=== PATIENT | male | born 1930 | race Caucasian/White ===

== ENCOUNTER 2017-01-04 17:45 | Inpatient (IN) | payer MEDICARE ==
[~2017-01-04] VITALS: Ht 180.3 cm; Wt 72.7 kg
--- NOTE | 2017-01-04 18:22 | PHYS DOC ---
General Chief Complaint: CHEST PAIN Stated Complaint: CHEST PAIN Time Seen by MD: 18:10 Source: patient, family Problems: History of Present Illness Initial Comments Patient here with for chest pain. 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 Patient barely walk in the house about an hour prior to arrival to emergency department complaining of left-sided chest pain. He points to the left inframammary area and says it was sharp pain. He says is totally gone now. It was not associated with nausea vomiting diaphoresis or shortness of breath. He's had no fever or chills today. There is no runny nose or sore throat. says he does have a cough productive of thick clear mucus. There is no other chest pain or shortness of breath except as described. He's had no nausea or vomiting today. There is no abdominal pain. There is no change amount or bladder habits. says he occasionally has some swelling of the lower extremity is, is not been taking Lasix for the last several weeks. She says occasionally has tingling in the digits, but this again is been going on for any number of weeks. There is no other acute focal extremity or neurologic complaints. 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 Other than present for care tonight has been nothing done for this home and no fractures noted increase or decrease any symptoms the patient might have. Patient's past medical history according the is remarkable for COPD, CHF, prostate cancer. He receives chemotherapy infusions once every 3 months. He 's not had a prostate surgery or radiation. He does take an aspirin daily and did so this morning. He is a nonsmoker and nonuser of ethanol. He usually gets about the house by himself without a cane or a walker. Allergies: Coded Allergies: Sulfa (Sulfonamide Antibiotics) (Unverified Allergy, Intermediate, rash, ) Past Medical History Medical History: cancer, congestive heart failure, COPD Social History Smoker: non-smoker Alcohol: none Review of Systems All Other Systems: Reviewed and Negative Physical Exam General Appearance: WD/WN, no apparent distress Ear, Nose, Throat: normal ENT inspection, normal pharynx Neck: full range of motion, supple, normal inspection Respiratory: lungs clear, normal breath sounds, no respiratory distress, other Cardiovascular: regular rate, rhythm, no edema Gastrointestinal: non tender, soft, no organomegaly Back: no CVA tenderness, no vertebral tenderness Extremities: non-tender, normal inspection, no pedal edema Neurologic/Psychiatric: no motor/sensory deficits, alert, normal mood/affect Skin: normal color Lymphatic: no adenopathy Comments Generally this well-developed well-nourished white male in no acute distress. Vitals are as noted. Pertinent findings on physical exam shows ears and throat to be clear. Neck is supple without adenopathy or JVD. There's no meningeal signs. Chest is clear to auscultation bilaterally. Patient is equivocally tender over the left inframammary area of the anterior chest wall. There is no signs of trauma. He's not sure if this increases her reproduces his earlier pain. There is no change in pain with motion of the left upper versus resistance. Cardiac vascular exam shows regular rate and rhythm without murmur. The abdomen is soft and nontender without mass or megaly. There is no peritoneal findings. Back shows no CVA tenderness. Extremities show no rashes cyanosis or edema. There is no redness swelling cords or signs of DVT noted. Neurologic exam shows the patient awake alert oriented to person and place but not to time. says this is about how he's been the last several weeks. There are no gross motor sensory deficits appreciated. He is initially not ambulated in the ER. Remainder of physical exam is clinically unremarkable. Orders, Labs, Meds Old charts note a prior ER visit for hematoma. He had an echocardiogram done in May of last year which showed a normal study with ejection fraction of 70% . EKG shows sinus 70. Normal axis. No acute ST or T-wave changes. Labs today are clinically unremarkable with the exception of mildly elevated d- dimer and the BNP of a proximal 750. Chest x-ray shows no acute changes per the emergency physician. CT angiogram of the chest shows no acute evidence of pulmonary emboli per radiology. 0 Patient resting comfortably in the ED. He remains pain-free. I discussed with the patient and his the uncertain cause of this chest discomfort. He has no previous history of coronary disease, but he does have a history of CHF and I think he is fairly high risk. In addition, his dementia made given him small for perceptions about what was actually going on. I suggested the patient and his the safest course of action would be admission to the hospital overnight for observation. We can do serial enzymes to have cardiology see him in the morning. After discussion, they're agreeable to same. I discussed the case with Dr. Guy who graciously agrees to accept the patient to the hospital. I will complete initial holding orders including daily aspirin, or serial enzymes and EKGs, and cardiology consult. We'll also get him started on some Lasix for his mild failure. Patient and his continue to voice understanding and agreement with the admission plan. He is resting at this time awaiting transfer to the floor and inpatient care. MIGUELITO BURT MD Jan 04, 2017 18:22
[2017-01-04 18:41] LABS: BASO % 0 % (0-3); EOS # 0.5 x10^3/uL (0.0-0.7); EOS % 7 % (0-3); HEMOGLOBIN 12.2 g/dL (13.0-17.5); LYMPH # 1.9 x10^3/uL (1.0-4.8); LYMPH % 27 % (24-48); MEAN CORPUSCULAR HEMOGLOBIN 29 pg (25-35); MEAN CORPUSCULAR HGB CONC 33 g/dL (31-37); MEAN CORPUSCULAR VOLUME 87 fL (79-100); MONO # 0.6 x10^3/uL (0.0-1.1); MONO % 8 % (0-9); NEUT % 58 % (31-73); PLATELET COUNT 320 x10^3/uL (140-400); RED BLOOD COUNT 4.26 x10^6/uL (4.30-5.70); RED CELL DISTRIBUTION WIDTH 14.2 % (11.5-14.5)
[2017-01-04] MEDS ORDERED: METO25TA4 PO (18:41)
[2017-01-04] MEDS ORDERED: AMLO5TAB4 PO (18:41)
[2017-01-04] MEDS ORDERED: ASPI81TA50 PO (18:42)
[2017-01-04] MEDS ORDERED: LOVA40TA2 PO (18:42)
[2017-01-04] MEDS ORDERED: LEVO50TA5 PO (18:43)
[2017-01-04 18:57] LABS: ALBUMIN 3.8 g/dL (3.4-5.0); ALBUMIN/GLOBULIN RATIO 1.1 (1.0-1.7); CALCIUM 9.2 mg/dL (8.5-10.1); CREATININE 0.9 mg/dL (0.7-1.3); GFR 80.2; POTASSIUM 3.7 mmol/L (3.5-5.1); TOTAL BILIRUBIN 0.3 mg/dL (0.2-1.0); TOTAL PROTEIN 7.4 g/dL (6.4-8.2)
[2017-01-04 19:26] LABS: BILIRUBIN,URINE NEG (NEG); CLARITY,URINE CLEAR; COLOR,URINE YELLOW; GLUCOSE,URINE NEG (NEG); NITRITE,URINE NEG (NEG); UROBILINOGEN,URINE 0.2 mg/dL (0.2 mg/dL)
[2017-01-04 19:27] LABS: BACTERIA,URINE 0 /HPF (0-FEW); RBC,URINE OCC /HPF (0-2); WBC,URINE OCC /HPF (0-4)
[2017-01-04] MEDS ORDERED: IOHEXOL 300 MG/ML 75 ML VIAL. IV ONE (20:15)
--- NOTE | 2017-01-04 20:59 | RAD ---
PROCEDURE CT angiogram of the chest with intravenous contrast. HISTORY Chest pain. Elevated D-dimer. Cough and congestion. TECHNIQUE Computed tomographic images of the chest were obtained following the administration 75 cc Omnipaque 300 intravenous contrast. Three-dimensional maximum intensity projection images were obtained. One or more of the following individualized dose reduction techniques were utilized for this examination: 1. Automated exposure control; 2. Adjustment of the mA and/or kV according to patient size; 3. Use of iterative reconstruction technique. COMPARISON 10/25/2010 FINDINGS There is no evidence of pulmonary embolism. The heart is normal in size. There is coronary artery atherosclerosis and calcification of the aortic valve. There are prominent mediastinal and hilar lymph nodes, nonspecific and possibly physiologic or reactive in etiology. There is no pneumothorax or plural effusion. There is emphysema. There is bilateral posterior dependent and basilar atelectasis. There is a 1.3 cm pleural-based nodular opacity at the right lung base. This is likely due to subsegmental atelectasis. There is a small hiatal hernia. There are small left renal parapelvic cysts. There is aortic and aortic branch vessel atherosclerotic plaque. There degenerative changes throughout the spine. No suspicious osseous lesion is seen. IMPRESSION 1. No evidence of pulmonary embolism. 2. Emphysema with bilateral posterior dependent and basilar atelectasis. 3. 1.3 cm pleural-based opacity at the right lung base, the appearance of which favors subsegmental atelectasis. The minimal interval change in this finding compared to the remote study dated 10/25/2010 favors benignity. 4. Small hiatal hernia. 5. Aorta, coronary artery and aortic branch vessel atherosclerosis. 6. Prominent mediastinal and hilar lymph nodes, stable compared to the prior study and likely physiologic in the etiology. Electronically signed by: Gely Thomason (Jan 04, 2017 20:57:38)
[2017-01-04] MEDS ORDERED: ZOLPIDEM 5 MG TABLET. PO PRN (22:30)
[2017-01-04 22:32] VITALS: BP 180/65
[2017-01-04] MEDS ORDERED: FUROSEMIDE 40 MG/4 ML VIAL IVP ONE (22:45)
[2017-01-04 23:17] VITALS: BP 139/66
--- NOTE | 2017-01-05 00:22 | EKG ---
[address] [address] Test Date: 2017-01-04 Test Time: 17:53:48 Pat Name: YARA JOHANSEN Department: Room: 109 A Gender: M Transitional Nurse: DIO : 1930 Requested By: MIGUELITO BURT Order Number: [id number] Reading MD: Peng Bueno Measurements Intervals [place] Rate: 72 P: 129 WV: 198 QRS: 114 QRSD: 86 T: 161 QT: 422 QTc: 469 Interpretive Statements SINUS RHYTHM ABNORMAL RIGHT AXIS DEVIATION CONSISTENT WITH HIGH LATERAL INFARCT Electronically Signed On 01-09-2017 15:06:59 CDT by Peng Bueno
[2017-01-05] MEDS ORDERED: FURO20TA3 PO (00:33)
--- NOTE | 2017-01-05 02:33 | EKG ---
[address] [address] Test Date: 2017-01-05 Test Time: 01:33:45 Pat Name: YARA JOHANSEN Department: Room: 109 A Gender: M Optoelectronic Technician: : 1930 Requested By: MIGUELITO BURT Order Number: [id number] Reading MD: Peng Bueno Measurements Intervals [place] Rate: 76 P: 64 VA: 198 QRS: 65 QRSD: 84 T: 36 QT: 426 QTc: 484 Interpretive Statements SINUS RHYTHM PROLONGED QT Electronically Signed On 01-09-2017 15:27:17 CDT by Peng Bueno
[2017-01-05 04:10] VITALS: BP 162/73
[2017-01-05] MEDS ORDERED: LEVOTHYROXINE 50 MCG TABLET PO SCH ×2 (06:15→09:00)
[2017-01-05 06:24] LABS: POTASSIUM 3.6 mmol/L (3.5-5.1)
[2017-01-05 06:36] LABS: BASO # 0.1 x10^3/uL (0.0-0.2); BASO % 1 % (0-3); EOS # 0.4 x10^3/uL (0.0-0.7); EOS % 6 % (0-3); HEMATOCRIT 35.1 % (39.0-53.0); HEMOGLOBIN 11.9 g/dL (13.0-17.5); LYMPH # 1.4 x10^3/uL (1.0-4.8); LYMPH % 22 % (24-48); MEAN CORPUSCULAR HEMOGLOBIN 29 pg (25-35); MEAN CORPUSCULAR HGB CONC 34 g/dL (31-37); MEAN CORPUSCULAR VOLUME 86 fL (79-100); MONO # 0.5 x10^3/uL (0.0-1.1); MONO % 7 % (0-9); NEUT # 4.2 x10^3uL (1.8-7.7); NEUT % 64 % (31-73); PLATELET COUNT 326 x10^3/uL (140-400); RED BLOOD COUNT 4.11 x10^6/uL (4.30-5.70); RED CELL DISTRIBUTION WIDTH 13.9 % (11.5-14.5); WHITE BLOOD COUNT 6.5 x10^3/uL (4.0-11.0)
[2017-01-05 07:25] VITALS: BP 136/86
[2017-01-05] MEDS ORDERED: ASPIRIN 325 MG TABLET PO SCH (08:00)
--- NOTE | 2017-01-05 08:10 | RAD ---
Portable chest, 01/04/2017: History: Chest pain Comparison is made to a study from 11/08/2008. The heart size is normal. There is calcific plaquing of the aorta. No pulmonary infiltrates are seen. There is no evidence of pleural fluid. Moderate arthritic changes are present at both shoulders. IMPRESSION: No acute cardiopulmonary abnormality is detected.
[2017-01-05] MEDS ORDERED: FUROSEMIDE 40 MG/4 ML VIAL IVP SCH (09:00)
[2017-01-05] MEDS ORDERED: amLODIPine BESYLATE 5 MG TABLET PO SCH (09:00)
[2017-01-05] MEDS ORDERED: METOPROLOL TART IMMED RELEASE 25 MG TABLET PO SCH (09:00)
[2017-01-05] MEDS ORDERED: ASPIRIN ENTERIC COATED 81 MG TABLET.DR. PO SCH (09:00)
[2017-01-05 09:22] VITALS: BP_SYST 114; BP_SYST 128; BP_DIAS 52; BP_DIAS 56
[2017-01-05 10:11] VITALS: BP 134/67
[2017-01-05] MEDS ORDERED: ENOXAPARIN 40 MG/0.4 ML DISP.SYRIN. SQ SCH ×2 (11:00→21:00)
--- NOTE | 2017-01-05 13:03 | CARD ---
APPROVED REPORT EXAM: Two-dimensional and M-mode echocardiogram with Doppler and color Doppler. Other Information Quality : Good INDICATION Chest Pain 2D DIMENSIONS RVDd2.6 (2.9-3.5cm)Left Atrium(2D)4.5 (1.6-4.0cm) IVSd1.0 (0.7-1.1cm)Aortic Root(2D)2.8 (2.0-3.7cm) LVDd4.4 (3.9-5.9cm)LVOT Diameter2.1 (1.8-2.4cm) PWd1.1 (0.7-1.1cm)LVDs2.2 (2.5-4.0cm) FS (%) 30.0 %SV72.9 ml LVEF(%)60.0 (>50%) Aortic Valve AoV Peak Oliver.131.4cm/sAoV VTI23.4cm AO Peak GR.6.9mmHgLVOT Peak Oliver.144.9cm/s LVOT VTI 29.15cmAO Mean GR.4mmHg SUJEY (VMAX)3.02re9TJH (VTI)4.27cm2 Mitral Valve MV E Kakvrthi50.4cm/sMV DECEL [id number] MV A Ftbrqifb213.7cm/sE/A Ratio0.6 Tricuspid Valve TR P. Giuqxgbp454jv/sRAP GLHLJYHN7ziCm TR Peak Gr.68elCxZNNI56kvIh LEFT VENTRICLE The left ventricle is normal size. The echo findings are consistent with left ventricular outflow obs truction. The left ventricular systolic function is normal and the ejection fraction is within normal range. The Ejection Fraction is 60-65%. There is normal LV segmental wall motion. Transmitral Dopple r flow pattern is Grade I-abnormal relaxation pattern. RIGHT VENTRICLE The right ventricle is normal size. The right ventricular systolic function is normal. ATRIA The left atrium is mildly dilated. The right atrium size is normal. The interatrial septum is intact with no evidence for an atrial septal defect or patent foramen ovale as noted on 2-D or Doppler imagi ng. AORTIC VALVE The aortic valve is calcified but opens well. Doppler and Color Flow revealed trace aortic regurgitat ion. There is no significant aortic valvular stenosis. There is basal septal hypertrophy with an incr eased LVOT gradient of 3.45 m/s with valsalva consistent with idiopathic hypertrophic subaortic steno sis. MITRAL VALVE The mitral valve is calcified but opens well. There is no evidence of mitral valve prolapse. There is no mitral valve stenosis. Doppler and Color-flow revealed trace to mild mitral regurgitation. TRICUSPID VALVE The tricuspid valve is normal in structure and function. Doppler and Color Flow revealed trace tricus pid regurgitation. The PA pressure was estimated at 31 mmHg. There is no tricuspid valve stenosis. PULMONIC VALVE The pulmonary valve is normal in structure and function. Doppler and Color Flow revealed trace pulmon ic valvular regurgitation. There is no pulmonic valvular stenosis. GREAT VESSELS The aortic root is normal in size. The ascending aorta is not well seen. The IVC is normal in size an d collapses >50% with inspiration. PERICARDIAL EFFUSION There is no evidence of significant pericardial effusion. Critical Notification Critical Value: No <Conclusion> The left ventricle is normal size. The left ventricular systolic function is normal and the ejection fraction is within normal range. The Ejection Fraction is 60-65%. The echo findings are consistent with left ventricular outflow obstruction. Doppler and Color Flow revealed trace aortic regurgitation. There is no significant aortic valvular stenosis. There is basal septal hypertrophy with an increased LVOT gradient of 3.45 m/s with valsalva consistent with idiopathic hypertrophic subaortic stenosis. Doppler and Color-flow revealed trace to mild mitral regurgitation. Doppler and Color Flow revealed trace tricuspid regurgitation. The PA pressure was estimated at 31 mmHg.
--- NOTE | 2017-01-05 17:03 | PDOC2 ---
CARDIAC CONSULT DATE OF CONSULT Date Of Consult DATE: 01/05/17 TIME: 16:56 REASON FOR CONSULT Reason for Consult Chest pain REFERRING PHYSICIAN Referring Physician Dr. Guy SOURCE Source: Patient HPI History of Present Illness The patient is an 86-year-old male with a history of COPD and probable mild heart failure. He was admitted through the emergency room for episodes of chest pain as noted above and shortness of breath. His EKG shows a sinus rhythm with no acute ischemic changes. His troponins have been within normal limits 2. An echocardiogram last year showed normal LV systolic function. Chest x-ray shows no acute infiltrates. A CT chest scan shows no pulmonary emboli but does show diffuse emphysema. The patient is feeling better today. He denies any chest pain. He wishes to go home. PAST MEDICAL HISTORY Cardiovascular: CHF, HTN Pulmonary: COPD Heme/Onc: Cancer PAST SURGICAL HISTORY Past Surgical History: No pertinent history FAMILY HISTORY Family History: Hypertension SOCIAL HISTORY Smoke: No ALCOHOL: none CURRENT MEDICATIONS Current Medications Current Medications Iohexol (Omnipaque 300 Mg/ml) 75 ml 1X ONCE IV Last administered on 01/04/17 20:26; Start 01/04/17 at 20:15; Stop 01/04/17 at 20:17; Status DC Zolpidem Tartrate (Ambien) 5 mg PRN QHS PRN PO INSOMNIA Last administered on 22:54; Start 01/04/17 at 22:30; Stop 01/05/17 at 14:28; Status DC Aspirin (Quentin Aspirin) 325 mg DAILYWBKFT PO ; Start 01/05/17 at 08:00; Stop at 08:57; Status DC Furosemide (Lasix) 40 mg 1X ONCE IVP Last administered on 01/04/17 22:54; Start 01/04/17 at 22:45; Stop 01/04/17 at 22:46; Status DC Furosemide (Lasix) 40 mg DAILY IVP Last administered on 01/05/17 09:29; Start 01/05/17 at 09:00; Stop 01/05/17 at 14:28; Status DC Levothyroxine Sodium (Synthroid) 50 mcg DAILY PO ; Start 01/05/17 at 09:00; Stop 01/05/17 at 09:00; Status DC Amlodipine Besylate (Norvasc) 5 mg DAILY PO ; Start 01/05/17 at 09:00; Stop at 14:28; Status DC Aspirin (Aspirin Enteric Coated) 81 mg DAILY PO Last administered on 01/05/17 09:28; Start 01/05/17 at 09:00; Stop 01/05/17 at 14:28; Status DC Metoprolol Tartrate (Lopressor) 25 mg BID PO Last administered on 01/05/17 09: 28; Start 01/05/17 at 09:00; Stop 01/05/17 at 14:28; Status DC Atorvastatin Calcium (Lipitor) 10 mg HS PO ; Start 01/05/17 at 21:00; Stop 01/05 at 21:00; Status DC Levothyroxine Sodium (Synthroid) 50 mcg DAILY06 PO Last administered on 06:18; Start 01/05/17 at 06:15; Stop 01/05/17 at 14:28; Status DC Enoxaparin Sodium (Lovenox) 40 mg DAILY SQ ; Start 01/05/17 at 11:00; Stop 01/05 at 13:36; Status DC Enoxaparin Sodium (Lovenox) 40 mg QHS SQ ; Start 01/05/17 at 21:00; Stop at 21:00; Status DC Active Scripts Active Reported Furosemide 20 Mg Tablet 20 Mg PO DAILY Levothyroxine Sodium 50 Mcg Tablet 50 Mcg PO DAILY Lovastatin 40 Mg Tablet 40 Mg PO DAILY Aspir-Low (Aspirin) 81 Mg Tablet.dr 81 Mg PO DAILY Norvasc (Amlodipine Besylate) 5 Mg Tablet 5 Mg PO DAILY Metoprolol Tartrate 25 Mg Tablet 25 Mg PO BID ALLERGIES Allergies: Coded Allergies: Sulfa (Sulfonamide Antibiotics) (Unverified Allergy, Intermediate, rash, ) ROS General: YES: Fatigue Respiratory: YES: SOB with excertion, Shortness of breath Cardiovascular: yes: Chest Pain PHYSICAL EXAM General: No acute distress HEENT: Atraumatic Lungs: Other (slightly decreased breath sounds) Heart: Regular rate Abdomen: Normal bowel sounds Extremities: No clubbing VITALS Vital Signs Vital Signs Date Time Temp Pulse Resp B/P Pulse Ox O2 Delivery O2 Flow Rate FiO2 01/05/17 10:11 98.1 84 20 134/67 94 Room Air LABS LABS Laboratory Tests Test 01/04/17 18:02 01/04/17 18:55 01/04/17 22:50 01/05/17 02:40 White Blood Count 7.0x10^3/uL (4.0-11.0) 6.5x10^3/uL (4.0-11.0) Red Blood Count 4.26x10^6/uL (4.30-5.70) 4.11x10^6/uL (4.30-5.70) Hemoglobin 12.2g/dL (13.0-17.5) 11.9g/dL (13.0-17.5) Hematocrit 37.0% (39.0-53.0) 35.1% (39.0-53.0) Mean Corpuscular Volume 87fL (79-100) 86fL (79-100) Mean Corpuscular Hemoglobin 29pg (25-35) 29pg (25-35) Mean Corpuscular Hemoglobin Concent 33g/dL (31-37) 34g/dL (31-37) Red Cell Distribution Width 14.2% (11.5-14.5) 13.9% (11.5-14.5) Platelet Count 320x10^3/uL (140-400) 326x10^3/uL (140-400) Neutrophils (%) (Auto) 58% (31-73) 64% (31-73) Lymphocytes (%) (Auto) 27% (24-48) 22% (24-48) Monocytes (%) (Auto) 8% (0-9) 7% (0-9) Eosinophils (%) (Auto) 7% (0-3) 6% (0-3) Basophils (%) (Auto) 0% (0-3) 1% (0-3) Neutrophils # (Auto) 4.0x10^3uL (1.8-7.7) 4.2x10^3uL (1.8-7.7) Lymphocytes # (Auto) 1.9x10^3/uL (1.0-4.8) 1.4x10^3/uL (1.0-4.8) Monocytes # (Auto) 0.6x10^3/uL (0.0-1.1) 0.5x10^3/uL (0.0-1.1) Eosinophils # (Auto) 0.5x10^3/uL (0.0-0.7) 0.4x10^3/uL (0.0-0.7) Basophils # (Auto) 0.0x10^3/uL (0.0-0.2) 0.1x10^3/uL (0.0-0.2) Prothrombin Time 9.9SEC (9.4-11.4) Prothromb Time International Ratio 1.0 (0.9-1.1) D-Dimer (Daisy) 1.33mg/L (0.00-0.50) Sodium Level 135mmol/L (136-145) 137mmol/L (136-145) Potassium Level 3.7mmol/L (3.5-5.1) 3.6mmol/L (3.5-5.1) Chloride Level 98mmol/L (98-107) 100mmol/L (98-107) Carbon Dioxide Level 26mmol/L (21-32) 26mmol/L (21-32) Anion Gap 11 (6-14) 11 (6-14) Blood Urea Nitrogen 13mg/dL (8-26) 9mg/dL (8-26) Creatinine 0.9mg/dL (0.7-1.3) 1.0mg/dL (0.7-1.3) Estimated GFR (Cockcroft-Gault) 80.2 71.0 BUN/Creatinine Ratio 14 (6-20) Glucose Level 111mg/dL (70-99) 106mg/dL (70-99) Calcium Level 9.2mg/dL (8.5-10.1) 9.0mg/dL (8.5-10.1) Total Bilirubin 0.3mg/dL (0.2-1.0) Aspartate Amino Transf (AST/SGOT) 21U/L (15-37) Alanine Aminotransferase (ALT/SGPT) 21U/L (16-63) Alkaline Phosphatase 91U/L (46-116) Creatine Kinase 203U/L (39-308) 201U/L (39-308) 176U/L (39-308) Creatine Kinase MB (Mass) 2.1ng/mL (0.0-3.6) 2.3ng/mL (0.0-3.6) 1.9ng/mL (0.0-3.6) Creatine Kinase MB Relative Index 1.0% (0-4) 1.1% (0-4) 1.1% (0-4) Troponin I Quantitative < 0.017ng/mL (0-0.055) < 0.017ng/mL (0-0.055) < 0.017ng/mL (0-0.055) YV-Pzl-W-Type Natriuretic Peptide 775pg/mL (0-449) Total Protein 7.4g/dL (6.4-8.2) Albumin 3.8g/dL (3.4-5.0) Albumin/Globulin Ratio 1.1 (1.0-1.7) Amylase Level 54U/L (25-115) Lipase 179U/L (73-393) Urine Collection Type Unknown Urine Color Yellow Urine Clarity Clear Urine pH 6.5 Urine Specific [place] 1.010 Urine Protein Neg (NEG-TRACE) Urine Glucose (UA) Negmg/dL (NEG) Urine Ketones (Stick) Negmg/dL (NEG) Urine Blood Trace (NEG) Urine Nitrite Neg (NEG) Urine Bilirubin Neg (NEG) Urine Urobilinogen Dipstick 0.2mg/dL (0.2 mg/dL) Urine Leukocyte Esterase Neg (NEG) Urine RBC Occ/HPF (0-2) Urine WBC Occ/HPF (0-4) Urine Squamous Epithelial Cells None/LPF Urine Bacteria 0/HPF (0-FEW) IMAGES IMAGES Chest x-ray with no acute changes. Chest CT scan shows no pulmonary emboli. It does show emphysema. ECHOCARDIOGRAM Echocardiogram Echocardiogram from last year shows normal systolic function by report. ASSESSMENT/PLAN Assessment/Plan 1. Chest pain. Pain has resolved. Troponins have not elevated. Patient is feeling well and with like to go home. At this time we'll continue medical treatment. We'll check an echocardiogram to rule out regional wall motion abnormalities. This was discussed with the patient and he has agreed. 2. COPD with emphysema. Patient is feeling better. CT chest scan shows no pulmonary emboli. Would continue on pulmonary treatments. 3. Probable mild diastolic heart failure. Continue present medications. Check echocardiogram as above. We'll check an echocardiogram as noted above and increase the patient's activity. If his echo shows no regional wall motion abnormalities the patient could be discharged later today for a cardiac viewpoint with office follow-up. Thank you for allowing us to participate in the care of your pleasant patient. RAVEN WALDRON MD Jan 05, 2017 17:03
[2017-01-05] MEDS ORDERED: ATORVASTATIN CALCIUM 10 MG TABLET. PO SCH (21:00)
--- NOTE | 2017-01-06 00:39 | HP ---
ADMIT DATE: 01/05/2017 HISTORY OF PRESENT ILLNESS: An 86-year-old male came in with chest pain. The patient apparently bringing up flight of stairs and began to have some substernal chest pain not associated with nausea, vomiting, or diaphoresis. The patient came to the rest and still continued to have problems with his chest discomfort, brought in through the Emergency Room and admitted for rule out MS protocol. PAST MEDICAL HISTORY: He has had a history of cancer and congestive heart failure. He has a longtime COPD. The patient presently has a history includes that of early Alzheimer disease, cardiac disorder, CHF, hypertension, COPD, and prostate cancer. He is on chemo every 3 months, musculoskeletal disorder, arthritis, endocrine disorders, and hypothyroidism. FAMILY HISTORY: Positive for heart disease. ALLERGIES: THE PATIENT HAS ALLERGIES TO SULFUR. SOCIAL HISTORY: The patient used to be a smoker. Denies alcohol or drug use. He is a DNR. REVIEW OF SYSTEMS: Positive for chest pain, otherwise denies nausea, vomiting, or abdominal pain. Denies any melena, hematochezia, or emesis. Neurologically intact for baseline. PHYSICAL EXAMINATION: VITAL SIGNS: Blood pressure 160/70, respiration 18, pulse 80, and afebrile. HEENT: The patient's head was atraumatic and normocephalic. Eyes, PERRLA without jaundice. Mouth and throat were normal. NECK: Supple without JVD or thyromegaly. LUNGS: Clear to auscultation. CVR: Regular sinus rhythm. ABDOMEN: Soft and nontender. No rebound or guarding. Positive bowel sounds. No hepatosplenomegaly noted. EXTREMITIES: No clubbing, cyanosis, or edema. NEUROLOGICAL EXAM: Intact. IMPRESSION: Chest pain, rule out myocardial infarction protocol, chronic obstructive pulmonary disease, and history of prostate cancer. SHIRLENE HENNESSY MD DR: ANT/kimberly JOB#: [id number] / [id number]
== END 2017-01-05 14:25 | disposition home or self-care (01) | DRG 303 ==
LOC: ER 17:45 → 1 SOUTH 21:45 → OBSVTOIN 21:45
PROVIDERS: ADMIT Family Medicine; ATTEND Family Medicine
DX: I25.10 Atherosclerotic heart disease of native coronary artery without angina pectoris (principal); I50.32 Chronic diastolic (congestive) heart failure; E03.9 Hypothyroidism, unspecified; F02.80 Dementia in other diseases classified elsewhere, unspecified severity, without behavioral disturbance, psychotic disturbance, mood disturbance, and anxiety; G30.9 Alzheimer's disease, unspecified; I11.0 Hypertensive heart disease with heart failure; M19.90 Unspecified osteoarthritis, unspecified site; J43.9 Emphysema, unspecified; Z66 Do not resuscitate; Z82.49 Family history of ischemic heart disease and other diseases of the circulatory system; Z85.46 Personal history of malignant neoplasm of prostate; Z88.2 Allergy status to sulfonamides; J44.9 Chronic obstructive pulmonary disease, unspecified
CPT/HCPCS: 36415; 71010; 71275; 80048; 80053; 81001; 82150; 82553; 83690; 83880; 84484; 85027; 85379; 85610; 93005; 93306; J1940; Q9967; 99285-25

== ENCOUNTER 2017-08-31 09:47 | Inpatient (IN) | payer MEDICARE ==
[~2017-08-31] VITALS: Ht 167.6 cm; Wt 70.3 kg
[~2017-08-31 09:47] MED LIST: AMLO5TAB4 PO; ASPI81TA50 PO; FURO20TA3 PO; LEVO50TA5 PO; LOVA40TA2 PO; METO25TA4 PO
[2017-08-31 10:17] LABS: BASO # 0.1 x10^3/uL (0.0-0.2); BASO % 2 % (0-3); EOS % 11 % (0-3); HEMATOCRIT 40.5 % (39.0-53.0); HEMOGLOBIN 13.8 g/dL (13.0-17.5); LYMPH % 22 % (24-48); MEAN CORPUSCULAR HEMOGLOBIN 30 pg (25-35); MEAN CORPUSCULAR HGB CONC 34 g/dL (31-37); MEAN CORPUSCULAR VOLUME 87 fL (79-100); MONO # 0.5 x10^3/uL (0.0-1.1); MONO % 5 % (0-9); NEUT # 5.5 x10^3uL (1.8-7.7); NEUT % 60 % (31-73); PLATELET COUNT 313 x10^3/uL (140-400); RED BLOOD COUNT 4.63 x10^6/uL (4.30-5.70); RED CELL DISTRIBUTION WIDTH 13.6 % (11.5-14.5); WHITE BLOOD COUNT 9.1 x10^3/uL (4.0-11.0)
[2017-08-31] MEDS ORDERED: cloNIDine HCL 0.1 MG TABLET PO ONE (10:30)
[2017-08-31] MEDS ORDERED: OXYMETAZOLINE 0.05% NASAL SPRAY 15ML BOTTLE. NS ONE (10:30)
--- NOTE | 2017-08-31 10:46 | RAD ---
Portable chest, 08/31/2017: History: Hypertension, nosebleed Comparison is made to a study from 01/04/2017. The heart size and pulmonary vascularity are normal. There is calcific plaquing of the aorta. No pulmonary infiltrates are seen. There is no evidence of pleural fluid. Moderate degenerative change is evident at both shoulders. IMPRESSION: No acute cardiopulmonary abnormality is detected.
--- NOTE | 2017-08-31 10:58 | PHYS DOC ---
Past History Past Medical History: Cancer, CHF, Hypertension, Hypothyroid Past Surgical History: Cancer Surgery Alcohol Use: Occasionally Drug Use: None Adult General Chief Complaint Chief Complaint: NOSEBLEED HPI HPI 87-year-old male patient woke up this morning with sneezing and later on developed right-sided nasal bleeding that did not stop with local pressure. Patient brought in by EMS with complaining of right-sided nasal bleeding for about 25 minutes prior to arrival to ER. Patient did not have history of nasal bleeding previously or recent fever and chills and injury. Patient has dementia and most of history was taking his and EMS. Patient had blood pressure of more than 200 and did not take his medication today. Review of Systems Review of Systems Constitutional: Denies fever or chills [] Eyes: Denies change in visual acuity, redness, or eye pain [] HENT: Denies nasal congestion or sore throat, reports nasal bleeding [] Respiratory: Denies cough or shortness of breath [] Cardiovascular: No additional information not addressed in HPI [] GI: Denies abdominal pain, nausea, vomiting, bloody stools or diarrhea [] : Denies dysuria or hematuria [] Musculoskeletal: Denies back pain or joint pain [] Integument: Denies rash or skin lesions [] Neurologic: Denies headache, focal weakness or sensory changes [] Endocrine: Denies polyuria or polydipsia [] All other systems were reviewed and found to be within normal limits, except as documented in this note. Current Medications Current Medications Current Medications Medications (Trade) Dose Ordered Sig/Selwyn Start Time Stop Time Status Last Admin Dose Admin Clonidine HCl (Catapres) 0.1 mg 1X ONCE 08/31/17 10:30 08/31/17 10:31 DC 08/31/17 10:11 0.1 MG Oxymetazoline HCl (Afrin) 2 spray 1X ONCE 08/31/17 10:30 08/31/17 10:31 DC 08/31/17 10:12 2 SPRAY Allergies Allergies Allergies Coded Allergies Type Severity Reaction Last Updated Verified Sulfa (Sulfonamide Antibiotics) Allergy Intermediate rash 11/05/14 No olmesartan Allergy Unknown 08/31/17 Yes Physical Exam Physical Exam Constitutional: moderate distress, non-toxic appearance. [] HENT: Normocephalic, atraumatic, active right moderate nasal bleeding Eyes: PERRLA, EOMI, conjunctiva normal, no discharge. [] Neck: Normal range of motion, no tenderness, supple, no stridor. [] Cardiovascular:Heart rate regular rhythm, no murmur [] Lungs & Thorax: Bilateral breath sounds clear to auscultation [] Abdomen: Bowel sounds normal, soft, no tenderness, no masses, no pulsatile masses. [] Skin: Warm, dry, no erythema, no rash. [] Back: No tenderness, no CVA tenderness. [] Extremities: No tenderness, no cyanosis, no clubbing, ROM intact, no edema. [] Neurologic: Alert and oriented , normal motor function, normal sensory function , no focal deficits noted. [] Psychologic: Affect normal, judgement normal, mood normal. [] Current Patient Data Vital Signs Vital Signs Date Time Temp Pulse Resp B/P (MAP) Pulse Ox O2 Delivery O2 Flow Rate FiO2 08/31/17 10:11 73 205/96 08/31/17 09:47 97.6 18 98 Room Air Lab Results Laboratory Tests Test 08/31/17 10:04 White Blood Count 9.1 x10^3/uL (4.0-11.0) Red Blood Count 4.63 x10^6/uL (4.30-5.70) Hemoglobin 13.8 g/dL (13.0-17.5) Hematocrit 40.5 % (39.0-53.0) Mean Corpuscular Volume 87 fL (79-100) Mean Corpuscular Hemoglobin 30 pg (25-35) Mean Corpuscular Hemoglobin Concent 34 g/dL (31-37) Red Cell Distribution Width 13.6 % (11.5-14.5) Platelet Count 313 x10^3/uL (140-400) Neutrophils (%) (Auto) 60 % (31-73) Lymphocytes (%) (Auto) 22 % (24-48) L Monocytes (%) (Auto) 5 % (0-9) Eosinophils (%) (Auto) 11 % (0-3) H Basophils (%) (Auto) 2 % (0-3) Neutrophils # (Auto) 5.5 x10^3uL (1.8-7.7) Lymphocytes # (Auto) 2.0 x10^3/uL (1.0-4.8) Monocytes # (Auto) 0.5 x10^3/uL (0.0-1.1) Eosinophils # (Auto) 1.0 x10^3/uL (0.0-0.7) H Basophils # (Auto) 0.1 x10^3/uL (0.0-0.2) Prothrombin Time 10.2 SEC (9.4-11.4) Prothrombin Time INR 1.0 (0.9-1.1) EKG EKG KG interpreted by me. EKG at 1054 showed normal sinus rhythm at rate of 72, normal OR and QT intervals no ST and T wave abnormality[] Radiology/Procedures Radiology/Procedures [] Course & Med Decision Making Course & Med Decision Making Pertinent Labs and Imaging studies reviewed. (See chart for details) Evaluation of patient in ER showed 87-year-old female patient brought in by EMS because of nasal bleeding. Patient had moderate active bleeding at arrival to ER and nasal Rhino rocket was placed with with quadrant of bleeding. Patient had blood pressure of 202 120s and treated with clonidine and blood pressure gradually decreased to 170s. Because of hypertensive emergency and epistaxis patient's primary care physician Dr. Nascimento was informed at 1054 and recommended to admit patient for more evaluation. Dragon Disclaimer Dragon Disclaimer This electronic medical record was generated, in whole or in part, using a voice recognition dictation system. - Epistaxes treatment: at 0955 ,right-sided moderate nasal bleeding was controlled with applying nasal Afrin and Rhino rocket. Patient tolerated procedure well. Departure Departure: Impression: Primary Impression: Hypertensive urgency Additional Impressions: Epistaxis Dementia Disposition: ADMITTED INPATIENT (At 1055) Admitting Physician: Nader Nascimento Condition: IMPROVED Referrals: NADER NASCIMENTO MD (PCP) Problem Qualifiers SHIV CHAPMAN MD Aug 31, 2017 10:58
[2017-08-31 11:01] LABS: CALCIUM 9.1 mg/dL (8.5-10.1); CREATININE 0.9 mg/dL (0.7-1.3); POTASSIUM 3.6 mmol/L (3.5-5.1)
[2017-08-31 11:13] LABS: CREATINE KINASE 117 U/L (39-308)
--- NOTE | 2017-08-31 11:42 | EKG ---
[address] [address] Test Date: 2017-08-31 Test Time: 10:50:10 Pat Name: YARA JOHANSEN Department: Room: Gender: M Shiftman: PRECIOUS : 1930 Requested By: SHIV CHAPMAN Order Number: [id number] Reading MD: Measurements Intervals [place] Rate: 72 P: 53 SC: 188 QRS: 42 QRSD: 84 T: 52 QT: 424 QTc: 466 Interpretive Statements SINUS RHYTHM NORMAL ECG RI6.01 Unconfirmed report No previous ECG available for comparison
[2017-08-31 13:19] VITALS: BP 195/84
[2017-08-31] MEDS ORDERED: GOSE10.8 SQ (14:28)
[2017-08-31 15:05] VITALS: BP 149/80
[2017-08-31] MEDS: ACETAMINOPHEN 325 MG TABLET PO PRN (15:44)
[2017-08-31] MEDS: ATORVASTATIN CALCIUM 10 MG TABLET. PO SCH (15:45)
[2017-08-31] MEDS: LISINOPRIL 20 MG TABLET PO SCH (15:45)
[2017-08-31 19:49] VITALS: BP 155/69
[2017-08-31] MEDS: NEOMYCIN/BACITRAC/POLY TOPICAL OINTMENT 28GM TUBE. TP SCH (20:19)
[2017-08-31] MEDS: METOPROLOL TART IMMED RELEASE 25 MG TABLET PO SCH (20:19)
--- NOTE | 2017-08-31 20:52 | HP ---
ADMIT DATE: 08/31/2017 HISTORY OF PRESENT ILLNESS: An 87-year-old male came in through the Emergency Room today with epistaxis or nosebleed. The patient apparently been sneezing and developed right-sided nasal bleeding, did not stop with local pressure, brought in via EMS, was noted to have a blood pressure greater than 200. As a result of this, the patient was admitted to the hospital for further evaluation not only for his epistaxis, but also his blood pressure control as well. The patient has a history of dementia and was not able to give a very good medical history, some of it was obtained from the patient's . PAST MEDICAL HISTORY: History of cancer, congestive heart failure, longtime COPD. History includes Alzheimer's disease, cardiac disorder, CHF, hypertension, COPD, prostate cancer, chemo every 3 months, musculoskeletal disorder, arthritis, endocrine disorders, hypothyroidism. FAMILY HISTORY: Positive for heart disease. SOCIAL HISTORY: The patient used to be a smoker, quit several years ago. Denies alcohol or drug use. The patient is a DNR. Lives at home with his . REVIEW OF SYSTEMS: The patient really not able to give much of a history as he has dementia, but does not seem to be complaining of anything in particular. MEDICATIONS: His home medications include aspirin 81 mg daily, Zoladex 10.8 mg subcutaneously every 3 months, levothyroxine 50 mcg daily, lovastatin 40 mg a day, metoprolol 25 mg b.i.d. ALLERGIES: Along with he has OLMESARTAN noted as a possible allergy. PHYSICAL EXAMINATION: GENERAL: This is a pleasant white male, looking stated age, very thin, frail appearing gentleman. VITAL SIGNS: Blood pressure is high as 213/90, pulse in the 70s, respiratory rate 16, afebrile, good oxygen saturation. Presently, blood pressure down to 149/80 and pulse 80. NEUROLOGIC: The patient is alert and oriented baseline to himself. Otherwise, confused and disoriented. Right nasal area packed, otherwise head was atraumatic, normocephalic. Eyes: PERRLA without jaundice. Mouth and throat were normal. NECK: Supple, without JVD or carotid bruits. No thyromegaly. LUNGS: Diminished throughout, poor movement of air. CARDIOVASCULAR: Regular sinus rhythm, S1, S2, without murmur, rub, thrill, or extra heart sound. ABDOMEN: Soft, nontender, scaphoid. EXTREMITIES: No clubbing, cyanosis, or edema. Neurologically, as noted above. IMPRESSION: Therefore, epistaxis, hypertensive urgency, history of prostate cancer: The patient will be admitted and monitored carefully on his blood pressure and we will watch for any other signs of bleeding and drop in his hemoglobin, otherwise his protime was basically stable. We will continue to monitor him. We will use SCDs on him. SHIRLENE HENNESSY MD DR: ANT/kimberly JOB#: [id number] / [id number]
[2017-08-31] MEDS: MELATONIN 3 MG TABLET PO PRN (21:49)
[2017-08-31 23:33] VITALS: BP 156/83
[2017-08-31 23:58] LABS: BILIRUBIN,URINE NEG (NEG); CLARITY,URINE CLEAR; COLOR,URINE YELLOW; GLUCOSE,URINE NEG (NEG)
[2017-08-31 23:59] LABS: BACTERIA,URINE FEW /HPF (0-FEW); NITRITE,URINE NEG (NEG); RBC,URINE 0 /HPF (0-2); SQUAMOUS EPITHELIAL CELL,UR OCC /LPF; UROBILINOGEN,URINE 0.2 mg/dL (0.2 mg/dL); WBC,URINE 0 /HPF (0-4)
[2017-09-01] MEDS: ACETAMINOPHEN 325 MG TABLET PO PRN (05:18)
[2017-09-01] MEDS: LEVOTHYROXINE 50 MCG TABLET PO SCH (05:18)
[2017-09-01 05:49] VITALS: BP 157/76
[2017-09-01] MEDS ORDERED: ASPIRIN ENTERIC COATED 81 MG TABLET.DR. PO SCH (09:00)
[2017-09-01] MEDS: LISINOPRIL 20 MG TABLET PO SCH (09:03)
[2017-09-01] MEDS: NEOMYCIN/BACITRAC/POLY TOPICAL OINTMENT 28GM TUBE. TP SCH ×2 (09:04→20:16)
[2017-09-01] MEDS: METOPROLOL TART IMMED RELEASE 25 MG TABLET PO SCH ×2 (09:04→20:16)
[2017-09-01 10:20] LABS: BASO # 0.1 x10^3/uL (0.0-0.2); BASO % 1 % (0-3); EOS # 0.3 x10^3/uL (0.0-0.7); EOS % 3 % (0-3); HEMATOCRIT 40.2 % (39.0-53.0); HEMOGLOBIN 13.6 g/dL (13.0-17.5); LYMPH # 1.8 x10^3/uL (1.0-4.8); LYMPH % 15 % (24-48); MEAN CORPUSCULAR HEMOGLOBIN 30 pg (25-35); MEAN CORPUSCULAR HGB CONC 34 g/dL (31-37); MEAN CORPUSCULAR VOLUME 88 fL (79-100); MONO # 0.6 x10^3/uL (0.0-1.1); MONO % 5 % (0-9); NEUT # 9.2 x10^3uL (1.8-7.7); NEUT % 77 % (31-73); PLATELET COUNT 331 x10^3/uL (140-400); RED BLOOD COUNT 4.59 x10^6/uL (4.30-5.70); RED CELL DISTRIBUTION WIDTH 14.3 % (11.5-14.5)
[2017-09-01 11:00] VITALS: BP 137/62
[2017-09-01] MEDS: ATORVASTATIN CALCIUM 10 MG TABLET. PO SCH (17:32)
[2017-09-01 20:13] VITALS: BP 175/62
--- NOTE | 2017-09-01 20:21 | PN ---
DATE: SUBJECTIVE: An 87-year-old male came in with hypertensive urgency as well as epistaxis. He is resting fairly comfortably. Blood pressure has come down, but still being regulated, 158/80, respiratory rate 16, pulse 70, afebrile. The patient is still having some nosebleeds. He does have a tampon in place, but he is still resting fairly comfortably, still having some bleeding and will continue to be monitored as such. PHYSICAL EXAMINATION: GENERAL: Otherwise, the patient is alert and oriented x 3. HEENT: The tampons in place in the right nares. NECK: Supple, no JVD, carotid bruits. Dark blood was noted some of the back of the throat. LUNGS: Clear. CARDIOVASCULAR: Regular sinus rhythm. ABDOMEN: Soft, nontender. The patient's labs do show a slight decrease in his hemoglobin. We will continue to monitor that, make further evaluation on him as indicated. IMPRESSION: Hypertensive urgency and epistaxis. SHIRLENE HENNESSY MD DR: ANT/kimberly JOB#: [id number] / [id number]
[2017-09-01] MEDS ORDERED: DOXAZOSIN MESYLATE 1 MG TABLET PO SCH (21:00)
[2017-09-01] MEDS ORDERED: ZOLPIDEM 5 MG TABLET. PO SCH (21:00)
[2017-09-01 23:30] VITALS: BP 163/64
[2017-09-02] VITALS (8 sets, daily range): BP systolic 81–147; BP diastolic 44–74
[2017-09-02] MEDS: LEVOTHYROXINE 50 MCG TABLET PO SCH (05:02)
[2017-09-02 07:31] LABS: BASO # 0.1 x10^3/uL (0.0-0.2); BASO % 1 % (0-3); EOS # 0.5 x10^3/uL (0.0-0.7); EOS % 5 % (0-3); HEMATOCRIT 35.2 % (39.0-53.0); HEMOGLOBIN 11.9 g/dL (13.0-17.5); LYMPH # 1.4 x10^3/uL (1.0-4.8); LYMPH % 14 % (24-48); MEAN CORPUSCULAR HEMOGLOBIN 30 pg (25-35); MEAN CORPUSCULAR HGB CONC 34 g/dL (31-37); MEAN CORPUSCULAR VOLUME 88 fL (79-100); MONO # 0.7 x10^3/uL (0.0-1.1); MONO % 7 % (0-9); NEUT # 7.1 x10^3uL (1.8-7.7); NEUT % 73 % (31-73); PLATELET COUNT 249 x10^3/uL (140-400); RED BLOOD COUNT 4.01 x10^6/uL (4.30-5.70); RED CELL DISTRIBUTION WIDTH 13.8 % (11.5-14.5); WHITE BLOOD COUNT 9.7 x10^3/uL (4.0-11.0)
[2017-09-02] MEDS: METOPROLOL TART IMMED RELEASE 25 MG TABLET PO SCH (08:02)
[2017-09-02] MEDS: LISINOPRIL 20 MG TABLET PO SCH (08:03)
[2017-09-02] MEDS: NEOMYCIN/BACITRAC/POLY TOPICAL OINTMENT 28GM TUBE. TP SCH ×2 (08:04→21:00)
[2017-09-02] MEDS: IV NORMAL SALINE 1,000ML 1,000 ML IV SCH ×2 (10:30→13:24)
[2017-09-02 10:43] LABS: BASO # 0.1 x10^3/uL (0.0-0.2); BASO % 1 % (0-3); EOS # 0.5 x10^3/uL (0.0-0.7); EOS % 4 % (0-3); HEMATOCRIT 34.6 % (39.0-53.0); HEMOGLOBIN 11.5 g/dL (13.0-17.5); LYMPH # 2.3 x10^3/uL (1.0-4.8); LYMPH % 18 % (24-48); MEAN CORPUSCULAR HEMOGLOBIN 29 pg (25-35); MEAN CORPUSCULAR HGB CONC 33 g/dL (31-37); MEAN CORPUSCULAR VOLUME 89 fL (79-100); MONO # 0.9 x10^3/uL (0.0-1.1); MONO % 7 % (0-9); NEUT # 9.5 x10^3uL (1.8-7.7); NEUT % 71 % (31-73); PLATELET COUNT 304 x10^3/uL (140-400); RED BLOOD COUNT 3.91 x10^6/uL (4.30-5.70); RED CELL DISTRIBUTION WIDTH 13.8 % (11.5-14.5); WHITE BLOOD COUNT 13.3 x10^3/uL (4.0-11.0)
[2017-09-02] MEDS: ATORVASTATIN CALCIUM 10 MG TABLET. PO SCH (15:54)
[2017-09-02] MEDS ORDERED: diphenhydrAMINE HCL 25 MG CAPSULE PO ONE (23:51)
[2017-09-02] MEDS: MELATONIN 3 MG TABLET PO PRN (23:52)
[2017-09-03] MEDS ORDERED: diphenhydrAMINE HCL 25 MG CAPSULE PO PRN
[2017-09-03] MEDS: IV NORMAL SALINE 1,000ML 1,000 ML IV SCH (00:43)
--- NOTE | 2017-09-03 00:47 | PN ---
DATE: SUBJECTIVE: An 87-year-old gentleman with acute exacerbation of COPD, came in with epistaxis, difficulty in breathing. The patient's, this morning, blood pressure dropped significantly down into the low 80s, pulse in the 50s and so forth. The patient was given boluses of IV fluid, came back up into range. His hemoglobin has dropped from ____ down to 11.5, white count 13,000, but he is doing better after the bolus of normal saline. OBJECTIVE: GENERAL: In any case, the patient seems to be resting fairly comfortably, otherwise more alert, answers a few questions, but very lethargic. LUNGS: Diminished, but clear. CARDIOVASCULAR: Regular sinus rhythm. Bradycardic. ABDOMEN: Soft. EXTREMITIES: No clubbing, cyanosis or edema. IMPRESSION: Hypertension, epistaxis, anemia secondary to acute upper respiratory tract bleed. PLAN: Continue to monitor, the patient is on fluids presently and will continue to be monitored on his blood pressure. SHIRLENE HENNESSY MD DR: ANT/kimberly JOB#: [id number] / [id number]
[2017-09-03 05:42] VITALS: BP 158/62
[2017-09-03] MEDS: LEVOTHYROXINE 50 MCG TABLET PO SCH (05:50)
[2017-09-03 06:30] LABS: BASO # 0.1 x10^3/uL (0.0-0.2); BASO % 1 % (0-3); EOS # 0.9 x10^3/uL (0.0-0.7); EOS % 9 % (0-3); HEMATOCRIT 34.5 % (39.0-53.0); HEMOGLOBIN 11.8 g/dL (13.0-17.5); LYMPH # 1.7 x10^3/uL (1.0-4.8); LYMPH % 18 % (24-48); MEAN CORPUSCULAR HEMOGLOBIN 30 pg (25-35); MEAN CORPUSCULAR HGB CONC 34 g/dL (31-37); MEAN CORPUSCULAR VOLUME 88 fL (79-100); MONO # 0.6 x10^3/uL (0.0-1.1); MONO % 7 % (0-9); NEUT # 6.1 x10^3uL (1.8-7.7); NEUT % 65 % (31-73); PLATELET COUNT 251 x10^3/uL (140-400); RED BLOOD COUNT 3.93 x10^6/uL (4.30-5.70); RED CELL DISTRIBUTION WIDTH 13.9 % (11.5-14.5); WHITE BLOOD COUNT 9.4 x10^3/uL (4.0-11.0)
[2017-09-03] MEDS ORDERED: ASPIRIN ENTERIC COATED 81 MG TABLET.DR. PO SCH (09:00)
[2017-09-03] MEDS: NEOMYCIN/BACITRAC/POLY TOPICAL OINTMENT 28GM TUBE. TP SCH (09:17)
== END 2017-09-03 11:22 | disposition home health service (06) | DRG 151 ==
LOC: ER 09:47 → 1 SOUTH 12:24 → UNDOADMIN 12:24
PROVIDERS: ADMIT Family Medicine; ATTEND Family Medicine
DX: R04.0 Epistaxis (principal); D62 Acute posthemorrhagic anemia; I11.0 Hypertensive heart disease with heart failure; I50.9 Heart failure, unspecified; J44.1 Chronic obstructive pulmonary disease with (acute) exacerbation; I16.0 Hypertensive urgency; G30.9 Alzheimer's disease, unspecified; F02.80 Dementia in other diseases classified elsewhere, unspecified severity, without behavioral disturbance, psychotic disturbance, mood disturbance, and anxiety; E03.9 Hypothyroidism, unspecified; M19.90 Unspecified osteoarthritis, unspecified site; Z66 Do not resuscitate; Z85.46 Personal history of malignant neoplasm of prostate; Z87.891 Personal history of nicotine dependence; Z82.49 Family history of ischemic heart disease and other diseases of the circulatory system; Z92.21 Personal history of antineoplastic chemotherapy; Z88.8 Allergy status to other drugs, medicaments and biological substances; Z88.2 Allergy status to sulfonamides
CPT/HCPCS: 30901; 36415; 71010; 80048; 81001; 82550; 83880; 84484; 85025; 85610; 93005; Q0163; 99285-25; J7030

== ENCOUNTER 2017-09-10 09:42 | Emergency (ER) | payer MEDICARE ==
[~2017-09-10 09:42] MED LIST changes: +GOSE10.8 SQ
[2017-09-10] MEDS ORDERED: COCAINE 4% TOPICAL SOLUTION TP ONE (10:00)
--- NOTE | 2017-09-10 10:09 | PHYS DOC ---
Past History Past Medical History: Cancer, CHF, Hypertension, Hypothyroid Past Surgical History: Cancer Surgery Alcohol Use: Occasionally Drug Use: None Adult General Chief Complaint Chief Complaint: NOSEBLEED HPI HPI Patient is a 87-year-old male who presents with complaint of nosebleed that started this morning, right nostril. Patient has similar episode a little over a week ago. Patient has yet to follow-up with ENT. Patient denies being in blood thinners or having trauma to the nose Review of Systems Review of Systems Constitutional: Denies fever or chills [] Eyes: Denies change in visual acuity, redness, or eye pain [] HENT: Denies nasal congestion or sore throat. Nosebleed, right nostril Respiratory: Denies cough or shortness of breath [] Cardiovascular: No pain GI: Denies abdominal pain, nausea, vomiting, Musculoskeletal: Denies back pain or joint pain [] Integument: Denies rash or skin lesions [] Neurologic: Denies headache, focal weakness or sensory changes [] All other systems were reviewed and found to be within normal limits, except as documented in this note. Current Medications Current Medications Current Medications Medications (Trade) Dose Ordered Sig/Selwyn Start Time Stop Time Status Last Admin Dose Admin Cocaine HCl 4 ml 1X ONCE 09/10/17 10:00 09/10/17 10:01 DC Allergies Allergies Allergies Coded Allergies Type Severity Reaction Last Updated Verified Sulfa (Sulfonamide Antibiotics) Allergy Intermediate rash 11/05/14 No olmesartan Allergy Unknown 08/31/17 Yes Physical Exam Physical Exam Constitutional: Well developed, well nourished, mild distress, non-toxic appearance. [] HENT: Normocephalic, atraumatic, bilateral external ears normal, oropharynx moist, no oral exudates, nose normal. Bleeding from right nostril. No evidence of posterior nosebleed Eyes:EOMI, conjunctiva normal, no discharge. [] Neck: Normal range of motion, no tenderness, supple, no stridor. [] Cardiovascular: Normal perfusion Lungs & Thorax: Bilateral breath sounds clear to auscultation, no tachypnea Abdomen: Nondistended[] Skin: Warm, dry, no erythema, no rash. [] Back: Normal range of motion Extremities: No tenderness, ROM intact, no edema. [] Neurologic: Alert and oriented X 3, normal motor function,, no focal deficits noted. [] Psychologic: Affect normal, judgement normal, mood normal. [] EKG EKG [] Radiology/Procedures Radiology/Procedures [] Course & Med Decision Making Course & Med Decision Making Pertinent Labs and Imaging studies reviewed. (See chart for details) Nose clamp has been removed, no bleeding. 1122 still no bleeding. Patient and family comfortable with discharge home. Return precautions have been provided. [] Dragon Disclaimer Dragon Disclaimer This electronic medical record was generated, in whole or in part, using a voice recognition dictation system. Departure Departure: Impression: Primary Impression: Epistaxis Disposition: HOME, SELF-CARE Condition: STABLE Referrals: SHIRLENE HENNESSY MD (PCP) Please follow-up with your doctor within a week and discuss possible need for referral to ENT Patient Instructions: Nose Drops, Saline, [id number], Nosebleed, [id number] Scripts Sodium Chloride (SALINE NASAL SPRAY) 30 Ml [place] 1 SPR NS QID, #60 ML Prov: Lillie TRUONG MD 09/10/17 Lillie TRUONG MD Sep 10, 2017 10:09
[2017-09-10] MEDS ORDERED: SODI30SP NS (11:24)
[2017-09-10 11:35] VITALS: BP 174/80
== END 2017-09-10 11:37 | disposition home or self-care (01) ==
LOC: ER 09:42
DX: R04.0 Epistaxis (principal); I11.0 Hypertensive heart disease with heart failure; I50.9 Heart failure, unspecified; E03.9 Hypothyroidism, unspecified; Z88.2 Allergy status to sulfonamides; Z88.8 Allergy status to other drugs, medicaments and biological substances
CPT/HCPCS: 99284

== ENCOUNTER 2017-10-06 09:19 | Emergency (ER) | payer MEDICARE ==
[~2017-10-06] VITALS: Ht 320 cm; Wt 71.0 kg
[~2017-10-06 09:19] MED LIST changes: +SODI30SP NS
[2017-10-06 09:20] VITALS: BP 174/80
--- NOTE | 2017-10-06 10:30 | PHYS DOC ---
General Chief Complaint: NOSEBLEED Stated Complaint: NOSEBLEED Time Seen by MD: 10:27 Source: patient Exam Limitations: no limitations Problems: History of Present Illness Initial Comments Patient is an 87-year-old male brought to the ED by family with a nosebleed. Patient states that his nose started bleeding this morning. This is his fourth nosebleed since . At home he tried applying the nasal clamp device which was ineffective. He denies trauma or blood thinners, states he used to get nosebleeds as a child but has not for a long while. He has not followed up with ear nose and throat. He denies easy bleeding bruising or any bleeding from other orifices. No recent URI symptoms. He began bleeding from his right approximately 30 minutes ago. On my evaluation in the emergency department after having had him look down while applying cold compress to his lateral naris for 15 minutes the bleeding has stopped. I advised him we would keep watch on him for a while to see if he rebleeds as we had other interventions we could use if necessary. He is agreeable. Timing/Duration: abrupt Severity: moderate Location: nose Prearrival Treatment: squeezing nostrils Modifying Factors: improves with other Associated Symptoms: other Allergies: Coded Allergies: Sulfa (Sulfonamide Antibiotics) (Unverified Allergy, Intermediate, rash, ) olmesartan (Verified Allergy, Unknown, 08/31/17) Past Medical History Medical History: other (cancer CHF hypothyroid) Surgical History: other Social History Smoker: quit greater than 1 year Alcohol: occasionally Drugs: none Constitutional: denies chills, denies fever Nose: see HPI Mouth: denies clots, denies loose teeth, denies pain Throat: denies pain, denies neck stiffness Respiratory: denies cough, denies shortness of breath Cardiovascular: denies chest pain, denies palpitations, denies syncope Neurological: denies headache, denies numbness, denies paresthesia Hematologic/Lymphatic: denies blood clots, denies easy bleeding, denies easy bruising Physical Exam General Appearance: WD/WN, no apparent distress Nose: dried blood Mouth/Throat: normal mouth inspection, pharynx normal Neck: full range of motion, supple Cardiovascular/Respiratory: normal peripheral pulses, no respiratory distress Neurologic/Psychiatric: song and dance performer II-XII nml as tested, no motor/sensory deficits, alert, normal mood/affect, oriented x 3 Skin: normal color, warm/dry Orders, Labs, Meds 1027: I rechecked the patient he states that his nosebleed has still stopped with the conservative measures of compression and forward bending. I advised him that we will monitor him for a short term and if no further rebleeding or if he decides he is ready to go he will be discharged home. 1126: RN notifies me that the patient has had no further rebleeding. She states that he is requesting discharge home. Departure Time of Disposition: : Disposition: HOME, SELF-CARE Diagnosis: epistaxis recurrent Condition: IMPROVED Patient Instructions: Nosebleed Additional Instructions: Please review the patient education materials given by ED staff. Nasal saline spray daily use per package instructions. Consider [id number] Afrin for rebleed dosing per package instructions, do not use greater than 24 hours. Follow-up with your doctor on Sunday for recheck and to discuss outpatient ENT referral. Return to ED with new or changing symptoms. JOHNNIE OSEI DO Oct 06, 2017 10:30
== END 2017-10-06 11:34 | disposition home or self-care (01) ==
LOC: ER 09:19
DX: R04.0 Epistaxis (principal); I50.9 Heart failure, unspecified; E03.9 Hypothyroidism, unspecified; Z87.891 Personal history of nicotine dependence; Z88.2 Allergy status to sulfonamides; Z88.8 Allergy status to other drugs, medicaments and biological substances
CPT/HCPCS: 99281

== ENCOUNTER 2017-10-18 09:55 | Emergency (ER) | payer MEDICARE ==
[2017-10-18] MEDS ORDERED: OXYMETAZOLINE 0.05% NASAL SPRAY 15ML BOTTLE. NS ONE ×2 (10:01→11:00)
--- NOTE | 2017-10-18 10:16 | ED.ADGEN ---
Past History Past Medical History: Cancer, CHF, Hypertension, Hypothyroid Past Surgical History: Cancer Surgery Alcohol Use: Occasionally Drug Use: None Adult General Chief Complaint Chief Complaint epistaxis HPI HPI Patient is a 87 year old male who presents with epistaxis starting overnight, unable to control with direct pressure. He's had previous similar episodes but was able to discharge without nasal packing. He has not yet seen ENT, has a mid -october appointment scheduled. Denies any blood thinners, no light-headedness /dizziness reported. Review of Systems Review of Systems Constitutional: Denies fever or chills [] Eyes: Denies change in visual acuity, redness, or eye pain [] HENT: per hpi Respiratory: Denies cough or shortness of breath [] Cardiovascular: Denies chest pain GI: Denies abdominal pain, nausea, vomiting, bloody stools or diarrhea [] : Denies dysuria or hematuria [] Musculoskeletal: Denies back pain or joint pain [] Integument: Denies rash or skin lesions [] Neurologic: Denies headache, focal weakness or sensory changes [] Current Medications Current Medications Current Medications Medications (Trade) Dose Ordered Sig/Selwyn Start Time Stop Time Status Last Admin Dose Admin Oxymetazoline HCl (Afrin) 2 spray 1X ONCE 10/18/17 11:00 10/18/17 11:01 Allergies Allergies Allergies Coded Allergies Type Severity Reaction Last Updated Verified Sulfa (Sulfonamide Antibiotics) Allergy Intermediate rash 11/05/14 No olmesartan Allergy Unknown 08/31/17 Yes Physical Exam Physical Exam Constitutional: Well developed, well nourished, no acute distress, non-toxic appearance. [] HENT: Normocephalic, atraumatic, copious bleeding from the R nare of BRB, direct source not noted, not alleviated with direct pressure Eyes: PERRLA, EOMI, conjunctiva normal, no discharge. [] Neck: Normal range of motion, no tenderness, supple, no stridor. [] Cardiovascular:Heart rate regular with regular rhythm Lungs & Thorax: no respiratory distress Skin: Warm, dry, no erythema, no rash. [] Back: No tenderness, no CVA tenderness. [] Extremities: No tenderness, no cyanosis, no clubbing, ROM intact, no edema. [] Neurologic: Alert and oriented X 3, normal motor function, normal sensory function, no focal deficits noted. [] Psychologic: Affect normal, judgement normal, mood normal. [] Current Patient Data Vital Signs Vital Signs Date Time Temp Pulse Resp B/P (MAP) Pulse Ox O2 Delivery O2 Flow Rate FiO2 10/18/17 09:55 97.9 71 18 98 Room Air EKG EKG [] Radiology/Procedures Radiology/Procedures Epistaxis management by me: 2 sprays Afrin sprayed in the nose Applied triple antibiotics ointment to the 7.5 mm Rapid Rhino after soaking in sterile water. Inserted the rapid rhino, injected 4ml of sterile water and the bleeding stopped. Pt tolerated moderately well.[] Course & Med Decision Making Course & Med Decision Making Pertinent Labs and Imaging studies reviewed. (See chart for details) Epistaxis controlled with rapid rhino. Will monitor for rebleeding. Bleeding well controlled. Contacted Dr. Rosa M Knight's office and able to schedule follow-up in the morning at 9:20 in [facility]. Pt understands the plan. Final Impression Final Impression Epistaxis[] Problems: Dragon Disclaimer Dragon Disclaimer This electronic medical record was generated, in whole or in part, using a voice recognition dictation system. POLO DESAI MD Oct 18, 2017 10:16
[2017-10-18 11:00] VITALS: BP 132/70
== END 2017-10-18 11:05 | disposition home or self-care (01) ==
LOC: ER 09:55
DX: R04.0 Epistaxis (principal); I11.0 Hypertensive heart disease with heart failure; I50.9 Heart failure, unspecified; E03.9 Hypothyroidism, unspecified; Z88.2 Allergy status to sulfonamides; Z88.8 Allergy status to other drugs, medicaments and biological substances
CPT/HCPCS: 30901; 99284-25

== ENCOUNTER → 2017-11-28 | Outpatient (CLI) | payer MEDICARE ==
--- NOTE | 2017-11-28 15:06 | RAD ---
CT sinus without contrast History: Epistaxis. Technique: CT of the sinuses was performed without intravenous contrast. Axial, sagittal, and coronal reconstructions were obtained. Exposure: One or more of the following individualized dose reduction techniques were utilized for this examination: 1. Automated exposure control 2. Adjustment of the mA and/or kV according to patient size 3. Use of iterative reconstruction technique Findings: Both osteomeatal units are patent. The visualized paranasal sinuses are clear with no significant mucosal thickening. No polyps or masses are seen. No significant mucoperiosteal reaction is identified. IMPRESSION: 1. Unremarkable CT of the sinuses. Electronically signed by: Asif Watson MD (11/28/2017 3:03 PM) [facility]
== END | disposition home or self-care (01) ==
LOC: CT 13:33
PROVIDERS: ATTEND Otolaryngology
DX: R04.0 Epistaxis (principal); I11.0 Hypertensive heart disease with heart failure; I50.32 Chronic diastolic (congestive) heart failure; J44.1 Chronic obstructive pulmonary disease with (acute) exacerbation; Z87.891 Personal history of nicotine dependence
CPT/HCPCS: 70486

== ENCOUNTER 2018-02-21 08:19 | Emergency (ER) | payer MEDICARE ==
[~2018-02-21] VITALS: Ht 167.6 cm; Wt 68.9 kg
--- NOTE | 2018-02-21 08:49 | PHYS DOC ---
Past History Past Medical History: CAD, Cancer (prostate), CHF, COPD, Hypertension, Hypothyroid Past Surgical History: Cancer Surgery Smoking: Quit Greater Than 1 Year Alcohol Use: Occasionally Drug Use: None Adult General Chief Complaint Chief Complaint: BLOOD IN URINE HPI HPI Patient is an 87 year old male who presents to the emergency department for evaluation. He states that this morning he awakened and had gross hematuria. He denies any pain, including any flank or back pain, or any pelvic pain. He has had some urinary frequency recently. He denies any fevers or chills. He has not had any nausea, vomiting, denies any shortness of breath or chest pain. His only anticoagulant is a baby aspirin once a day. He does have a history of prostate cancer, but his urologist recently left the area, and he is scheduled to see a new urologist at [facility] in about a month. There are no alleviating, or exacerbating factors to his symptoms. Review of Systems Review of Systems Constitutional: Denies fever or chills [] Eyes: Denies change in visual acuity, redness, or eye pain [] HENT: Denies nasal congestion or sore throat [] Respiratory: Denies cough or shortness of breath [] Cardiovascular: The patient denies any shortness of breath, chest pain, palpitations, or orthopnea [] GI: Denies abdominal pain, nausea, vomiting, bloody stools or diarrhea [] : Denies dysuria. Has had urinary frequency and hematuria [] Musculoskeletal: Denies back pain or joint pain [] Integument: Denies rash or skin lesions [] Neurologic: Denies headache, focal weakness or sensory changes [] Endocrine: Denies polydipsia [] All other systems were reviewed and found to be within normal limits, except as documented in this note. Allergies Allergies Allergies Coded Allergies Type Severity Reaction Last Updated Verified Sulfa (Sulfonamide Antibiotics) Allergy Intermediate rash 11/05/14 No olmesartan Allergy Unknown 08/31/17 Yes Physical Exam Physical Exam PHYSICAL EXAM: CONSTITUTIONAL: Well developed, well nourished HEAD: normocephalic, atraumatic EENT: PERRL, EOMI. Conjunctivae normal color, sclerae non-icteric; moist mucous membranes. NECK: Supple, non-tender; no meningismus. LUNGS: Lungs CTA, breathing even and unlabored. Normal air movement. HEART: Regular rate and rhythm, no murmur CHEST: No deformity; non-tender ABDOMEN: The abdomen is soft, and non-tender, no masses or bruits. EXTREM: Normal ROM; no deformity, no calf tenderness. Normal pulses palpable in all extremities. There is no pedal edema. SKIN: No rash; no diaphoresis NEURO: Alert; normal speech and cognition; CN's grossly intact; strength grossly intact without focal deficit. BACK: No CVA TTP. Current Patient Data Lab Results Lab results reviewed. White blood cell count 13,000, hemoglobin coagulation and platelets are normal. Renal function is normal. Urine shows too numerous to count red blood cells w/ 5-10 white cells. EKG EKG [] Radiology/Procedures Radiology/Procedures [PROCEDURE: CT ABDOMEN PELVIS WO/W CT ABDOMEN PELVIS WO/W Indication: LARGE AMOUNT OF HEMATURIA ONSET THIS MORNING WITH NO PAIN, HX OF PROSTATE CANCER,
UROGRAM PROTOCOL PER ER DOCTOR
75MLS OMNI 300 IV CONTRAST Exposure: One or more of the following individualized dose reduction techniques were utilized for this examination: 1. Automated exposure control 2. Adjustment of the mA and/or kV according to patient size 3. Use of iterative reconstruction technique. Comparison: None are available. Technique: Scanning performed before, during and after intravenous contrast administration. Oral contrast is not given. 3-D MIP reconstructions are obtained of the urinary tracts. FINDINGS: Lower thorax: Mild atelectasis or fibrosis in the lung bases. Coronary artery calcifications. Kidneys: Hypodense lesion at the lower pole of the left kidney measures 16 mm, and negative for Hounsfield units, compatible with a cyst. Several additional tiny low-density renal lesions bilaterally too small to characterize but would typically also be cysts. There are multiple small left parapelvic cysts. Urinary tracts:No urolithiasis or hydronephrosis. Urinary bladder: Diffuse wall thickening, with irregular margins. Mild stranding in the fat around the urinary bladder. Liver: Tiny hypodense lesion at the upper right kidney is too small to characterize, would most commonly be benign. Spleen: Unremarkable Pancreas: Unremarkable Adrenals:No evidence of mass. Gallbladder: No calcified stone Aorta: Ectatic with atherosclerotic calcification. No evidence of aneurysm. Lymph nodes: Retroperitoneal lymph node measures up to 6 mm short axis. Mildly enlarged mesenteric nodes, largest measures 7 mm short axis. Mildly enlarged inguinal lymph nodes, measuring up to 1 cm short axis. GI tract: Mild stool in colon. No bowel obstruction. No acute colitis. Gastric wall thickening likely due to lack of distention. Appendix is normal. Reproductive organs: There appears to be a TURP defect within the prostate. Peritoneum: No evidence of pneumoperitoneum. No free fluid. Abdominal wall:Unremarkable Spine: Severe degenerative spondylosis. Lumbar stenosis. Bones: Degenerative changes of both hips. IMPRESSION: 1. No evidence of urinary tract calculus or obstruction. 2. Diffuse urinary bladder wall thickening with adjacent inflammation. Findings could indicate acute or chronic cystitis. Infiltrative urinary bladder wall neoplasm is not excludable. 3. Small renal lesions, most likely cysts. 4. Mild generalized lymph node enlargement, nonspecific but may just be reactive. 5. Severe lumbar spondylosis with stenosis.] Course & Med Decision Making Course & Med Decision Making Pertinent Labs and Imaging studies reviewed. (See chart for details) [I discussed test results with the patient and his . While I'm doubtful he has an acute urinary tract infection the patient will be covered ] with antibiotics for this possibility. The importance of close urology follow-up was stressed. The patient really has a scheduled appointment in March for [facility], but I instructed him to call the office to see if they can be seen sooner for further evaluation and likely cystoscopy. The possibility of bladder cancer was discussed explicitly. Dragon Disclaimer Dragon Disclaimer This electronic medical record was generated, in whole or in part, using a voice recognition dictation system. Departure Departure: Impression: Primary Impression: Hematuria Disposition: HOME, SELF-CARE Condition: STABLE Referrals: SHIRLENE HENNESSY MD (PCP) Patient Instructions: Hematuria, Adult Additional Instructions: Follow-up with your urologist, call to see if your appointment can be moved up, and scheduled earlier, because further evaluation of the bleeding in your urine is warranted. Scripts Nitrofurantoin Monohyd/M-Cryst (MACROBID 100 MG CAPSULE) 100 Mg Capsule 1 CAP PO BID, #14 CAP Prov: SHOLA LANDIS MD 02/21/18 SHOLA LANDIS MD Feb 21, 2018 08:49
[2018-02-21] MEDS ORDERED: IOHEXOL 300 MG/ML 75 ML VIAL. IV ONE (09:00)
[2018-02-21 09:31] LABS: BASO # 0.8 x10^3/uL (0.0-0.2); BASO % 6 % (0-3); EOS # 0.4 x10^3/uL (0.0-0.7); EOS % 3 % (0-3); HEMATOCRIT 34.3 % (39.0-53.0); HEMOGLOBIN 11.6 g/dL (13.0-17.5); LYMPH # 1.2 x10^3/uL (1.0-4.8); LYMPH % 9 % (24-48); MEAN CORPUSCULAR HEMOGLOBIN 29 pg (25-35); MEAN CORPUSCULAR HGB CONC 34 g/dL (31-37); MEAN CORPUSCULAR VOLUME 86 fL (79-100); MONO # 0.8 x10^3/uL (0.0-1.1); MONO % 6 % (0-9); NEUT # 10.2 x10^3uL (1.8-7.7); NEUT % 76 % (31-73); PLATELET COUNT 360 x10^3/uL (140-400); RED BLOOD COUNT 4.01 x10^6/uL (4.30-5.70); RED CELL DISTRIBUTION WIDTH 14.2 % (11.5-14.5); WHITE BLOOD COUNT 13.3 x10^3/uL (4.0-11.0)
[2018-02-21 09:35] LABS: ALBUMIN 3.3 g/dL (3.4-5.0); CALCIUM 8.5 mg/dL (8.5-10.1); CREATININE 0.9 mg/dL (0.7-1.3); POTASSIUM 3.9 mmol/L (3.5-5.1); TOTAL BILIRUBIN 0.4 mg/dL (0.2-1.0); TOTAL PROTEIN 6.6 g/dL (6.4-8.2)
[2018-02-21 10:08] LABS: BACTERIA,URINE 0 /HPF (0-FEW); BILIRUBIN,URINE NEG (NEG); CLARITY,URINE BLOODY; COLOR,URINE RED; GLUCOSE,URINE NEG (NEG); NITRITE,URINE NEG (NEG); RBC,URINE TNTC /HPF (0-2); SQUAMOUS EPITHELIAL CELL,UR FEW /LPF; UROBILINOGEN,URINE 1 mg/dL (0.2 mg/dL)
--- NOTE | 2018-02-21 10:57 | RAD ---
CT ABDOMEN PELVIS WO/W Indication: LARGE AMOUNT OF HEMATURIA ONSET THIS MORNING WITH NO PAIN, HX OF PROSTATE CANCER,
UROGRAM PROTOCOL PER ER DOCTOR
75MLS OMNI 300 IV CONTRAST Exposure: One or more of the following individualized dose reduction techniques were utilized for this examination: 1. Automated exposure control 2. Adjustment of the mA and/or kV according to patient size 3. Use of iterative reconstruction technique. Comparison: None are available. Technique: Scanning performed before, during and after intravenous contrast administration. Oral contrast is not given. 3-D MIP reconstructions are obtained of the urinary tracts. FINDINGS: Lower thorax: Mild atelectasis or fibrosis in the lung bases. Coronary artery calcifications. Kidneys: Hypodense lesion at the lower pole of the left kidney measures 16 mm, and negative for Hounsfield units, compatible with a cyst. Several additional tiny low-density renal lesions bilaterally too small to characterize but would typically also be cysts. There are multiple small left parapelvic cysts. Urinary tracts:No urolithiasis or hydronephrosis. Urinary bladder: Diffuse wall thickening, with irregular margins. Mild stranding in the fat around the urinary bladder. Liver: Tiny hypodense lesion at the upper right kidney is too small to characterize, would most commonly be benign. Spleen: Unremarkable Pancreas: Unremarkable Adrenals:No evidence of mass. Gallbladder: No calcified stone Aorta: Ectatic with atherosclerotic calcification. No evidence of aneurysm. Lymph nodes: Retroperitoneal lymph node measures up to 6 mm short axis. Mildly enlarged mesenteric nodes, largest measures 7 mm short axis. Mildly enlarged inguinal lymph nodes, measuring up to 1 cm short axis. GI tract: Mild stool in colon. No bowel obstruction. No acute colitis. Gastric wall thickening likely due to lack of distention. Appendix is normal. Reproductive organs: There appears to be a TURP defect within the prostate. Peritoneum: No evidence of pneumoperitoneum. No free fluid. Abdominal wall:Unremarkable Spine: Severe degenerative spondylosis. Lumbar stenosis. Bones: Degenerative changes of both hips. IMPRESSION: 1. No evidence of urinary tract calculus or obstruction. 2. Diffuse urinary bladder wall thickening with adjacent inflammation. Findings could indicate acute or chronic cystitis. Infiltrative urinary bladder wall neoplasm is not excludable. 3. Small renal lesions, most likely cysts. 4. Mild generalized lymph node enlargement, nonspecific but may just be reactive. 5. Severe lumbar spondylosis with stenosis. Electronically signed by: Asif Bradley MD (02/21/2018 10:53 AM) [id number]
[2018-02-21 11:03] VITALS: BP 161/66
[2018-02-21] MEDS ORDERED: NITR100C62 PO (11:09)
== END 2018-02-21 11:15 | disposition home or self-care (01) ==
LOC: ER 08:19
DX: R31.0 Gross hematuria (principal); R35.0 Frequency of micturition; I11.0 Hypertensive heart disease with heart failure; I50.9 Heart failure, unspecified; I25.10 Atherosclerotic heart disease of native coronary artery without angina pectoris; E03.9 Hypothyroidism, unspecified; J44.9 Chronic obstructive pulmonary disease, unspecified; Z87.891 Personal history of nicotine dependence; Z88.2 Allergy status to sulfonamides; Z88.8 Allergy status to other drugs, medicaments and biological substances
CPT/HCPCS: 36415; 74178; 80053; 81001; 85025; 85610; 85730; 87086; 99285; Q9967; 87186

== ENCOUNTER 2019-05-24 13:05 | Inpatient (IN) | payer MEDICARE ==
[~2019-05-24] VITALS: Ht 170.2 cm; Wt 62.1 kg
--- NOTE | 2019-05-24 12:30 | NUR ---
Patient arrived to unit via W/C accompanied by family. Patients VS are obtained and are stable. Patient is confused to why he is here at this time. Patient is offered lunch tray and accepts. Pt is oriented to unit and procedures. 20g IV started in L AC labs drawn at this time. Patient is calm and cooperative with assessment. Will continue to monitor.
[~2019-05-24 13:05] MED LIST changes: +NITR100C62 PO
[2019-05-24 13:44] VITALS: BP 164/65
[2019-05-24 13:58] LABS: BASO # 0.1 x10^3/uL (0.0-0.2); BASO % 1 % (0-3); EOS # 0.6 x10^3/uL (0.0-0.7); EOS % 7 % (0-3); HEMATOCRIT 38.8 % (39.0-53.0); HEMOGLOBIN 12.9 g/dL (13.0-17.5); LYMPH % 12 % (24-48); MEAN CORPUSCULAR HEMOGLOBIN 29 pg (25-35); MEAN CORPUSCULAR HGB CONC 33 g/dL (31-37); MEAN CORPUSCULAR VOLUME 87 fL (79-100); MONO # 0.6 x10^3/uL (0.0-1.1); MONO % 8 % (0-9); NEUT # 5.6 x10^3uL (1.8-7.7); NEUT % 72 % (31-73); PLATELET COUNT 435 x10^3/uL (140-400); RED BLOOD COUNT 4.48 x10^6/uL (4.30-5.70); RED CELL DISTRIBUTION WIDTH 13.4 % (11.5-14.5); WHITE BLOOD COUNT 7.8 x10^3/uL (4.0-11.0)
[2019-05-24] MEDS: IV NORMAL SALINE 1,000ML 1,000 ML IV SCH (14:00)
[2019-05-24 14:07] LABS: ALBUMIN 3.5 g/dL (3.4-5.0); ALBUMIN/GLOBULIN RATIO 0.8 (1.0-1.7); CALCIUM 9.4 mg/dL (8.5-10.1); CREATININE 1.1 mg/dL (0.7-1.3); GFR 63.2; POTASSIUM 4.3 mmol/L (3.5-5.1); TOTAL BILIRUBIN 0.4 mg/dL (0.2-1.0)
[2019-05-24] MEDS ORDERED: HYDR25TA PO (14:42)
[2019-05-24] MEDS ORDERED: CLOB15CR2 TP (14:42)
[2019-05-24] MEDS ORDERED: QUET50TA5 PO (14:42)
[2019-05-24] MEDS ORDERED: DONE10TA7 PO (14:42)
[2019-05-24] MEDS ORDERED: MELO15TA6 PO (14:42)
--- NOTE | 2019-05-24 16:00 | NUR ---
PATIENT IS CONFUSED. PATIENT PULLED OUT HIS IV STATING ITS DRIVING ME NUTS. NEW IV INSERTED AND FLUIDS STARTED. THIS NURSE EXPLAINED TO PATIENT THAT HE NEEDS THE IV TO HELP HYDRATE HIM. PT AGREES TO LEAVE IV ALONG. PATIENT IS ALSO IRRITATED AT THIS TIME STATING THAT HE WANTS TO GO HOME AND HE DOES NOT KNOW WHY HE IS HERE. PATIENT IS RESTING IN BED AT THIS TIME. WILL CONTINUE TO MONITOR.
[2019-05-24] MEDS ORDERED: HALOPERIDOL LACT 5 MG/ML VIAL. IM ONE (17:00)
--- NOTE | 2019-05-24 17:24 | RAD ---
CHEST AP ONLY Clinical History: Technique: AP view of the chest was obtained at 05/24/2019 1:49 PM. Comparison: None. Findings: The cardiomediastinal silhouette is normal. The pulmonary vasculature is normal. The lungs are hyperinflated. There is reticular opacities of lungs.. Impression: Hyperinflation and chronic pulmonary fibrosis. No acute findings. Electronically signed by: Jose R Riley III, MD (05/24/2019 5:20 PM) [id number]
[2019-05-24 18:59] VITALS: BP 179/68
[2019-05-24] MEDS ORDERED: STARTER PACK-hydrOXYzine 1 STARTPACK TABLET PO PRN (19:15)
--- NOTE | 2019-05-24 20:39 | PDOC ---
Exam Note: Alexandr Note: Please also refer to the separate dictated note~for this date of service dictated separately.~Patient seen individually. Discussed the patient with Nursing staff reviewed the chart.~Reviewed interim history and current functioning. Reviewed vital signs,~Labs/ Radiology~and current medications noted below. Continue current treatment with the changes noted in the dictated addendum note Assessment: Vital Signs/I&O: Vital Signs Date Time Temp Pulse Resp B/P (MAP) Pulse Ox O2 Delivery O2 Flow Rate FiO2 05/24/19 18:59 97.9 76 20 179/68 (105) 93 Room Air Labs: Laboratory Tests Test 05/24/19 13:20 White Blood Count 7.8 x10^3/uL (4.0-11.0) Red Blood Count 4.48 x10^6/uL (4.30-5.70) Hemoglobin 12.9 g/dL (13.0-17.5) L Hematocrit 38.8 % (39.0-53.0) L Mean Corpuscular Volume 87 fL (79-100) Mean Corpuscular Hemoglobin 29 pg (25-35) Mean Corpuscular Hemoglobin Concent 33 g/dL (31-37) Red Cell Distribution Width 13.4 % (11.5-14.5) Platelet Count 435 x10^3/uL (140-400) H Neutrophils (%) (Auto) 72 % (31-73) Lymphocytes (%) (Auto) 12 % (24-48) L Monocytes (%) (Auto) 8 % (0-9) Eosinophils (%) (Auto) 7 % (0-3) H Basophils (%) (Auto) 1 % (0-3) Neutrophils # (Auto) 5.6 x10^3uL (1.8-7.7) Lymphocytes # (Auto) 1.0 x10^3/uL (1.0-4.8) Monocytes # (Auto) 0.6 x10^3/uL (0.0-1.1) Eosinophils # (Auto) 0.6 x10^3/uL (0.0-0.7) Basophils # (Auto) 0.1 x10^3/uL (0.0-0.2) Sodium Level 135 mmol/L (136-145) L Potassium Level 4.3 mmol/L (3.5-5.1) Chloride Level 98 mmol/L (98-107) Carbon Dioxide Level 29 mmol/L (21-32) Anion Gap 8 (6-14) Blood Urea Nitrogen 23 mg/dL (8-26) Creatinine 1.1 mg/dL (0.7-1.3) Estimated GFR (Cockcroft-Gault) 63.2 BUN/Creatinine Ratio 21 (6-20) H Glucose Level 104 mg/dL (70-99) H Calcium Level 9.4 mg/dL (8.5-10.1) Total Bilirubin 0.4 mg/dL (0.2-1.0) Aspartate Amino Transferase (AST) 24 U/L (15-37) Alanine Aminotransferase (ALT) 16 U/L (16-63) Alkaline Phosphatase 129 U/L (46-116) H Total Protein 8.0 g/dL (6.4-8.2) Albumin 3.5 g/dL (3.4-5.0) Albumin/Globulin Ratio 0.8 (1.0-1.7) L Current Medications: Meds: Current Medications Medications (Trade) Dose Ordered Sig/Selwyn Route PRN Reason Start Time Stop Time Status Last Admin Dose Admin Sodium Chloride 1,000 ml @ 80 mls/hr [id number] IV 05/24/19 14:00 05/24/19 15:01 Haloperidol Lactate (Haldol) 2 mg 1X ONCE IM 05/24/19 17:00 05/24/19 17:01 DC 05/24/19 16:58 I have reviewed the current psychotropics carefully including drug interactions. Risk benefit ratio favors no change other than as noted in my dictated progress note. 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
[2019-05-24 23:00] VITALS: BP 177/68
[2019-05-24] MEDS: OLANZapine 2.5 MG TABLET PO PRN (23:33)
[2019-05-25] MEDS: IV NORMAL SALINE 1,000ML 1,000 ML IV SCH ×2 (02:30→10:32)
[2019-05-25] MEDS ORDERED: hydrOXYzine HCL 25 MG TABLET PO PRN (08:00)
--- NOTE | 2019-05-25 09:55 | NUR ---
PATIENT IS CONFUSED BELIEVES HE IS GOING HOME TODAY. THIS NURSE REORIENTED PT THAT HE WAS IN THE HOSPITAL AND THAT HE WOULD MOST LIKELY BE WITH US A BIT LONGER. PT ACCEPTS AND IS RESTING COMFORTABLY IN CHAIR IN ROOM AT THIS TIME. WILL CONTINUE TO MONITOR.
[2019-05-25 09:59] LABS: BACTERIA,URINE 0 /HPF (0-FEW); BILIRUBIN,URINE NEG (NEG); CLARITY,URINE CLEAR; COLOR,URINE YELLOW; GLUCOSE,URINE NEG (NEG); NITRITE,URINE NEG (NEG); RBC,URINE 0 /HPF (0-2); UROBILINOGEN,URINE 0.2 mg/dL (0.2 mg/dL); WBC,URINE 0 /HPF (0-4)
[2019-05-25 11:42] VITALS: BP 158/57
[2019-05-25] MEDS: METOPROLOL TART IMMED RELEASE 25 MG TABLET PO SCH ×2 (11:54→21:17)
[2019-05-25] MEDS ORDERED: ASPIRIN ENTERIC COATED 81 MG TABLET.DR. PO SCH (12:00)
[2019-05-25] MEDS ORDERED: LEVOTHYROXINE 50 MCG TABLET PO SCH (12:00)
[2019-05-25] MEDS ORDERED: MELOXICAM 15 MG TABLET. PO SCH (12:00)
[2019-05-25 15:33] VITALS: BP 188/78
--- NOTE | 2019-05-25 18:50 | PDOC ---
Exam Note: Alexandr Note: Please also refer to the separate dictated note~for this date of service dictated separately.~Patient seen individually. Discussed the patient with Nursing staff reviewed the chart.~Reviewed interim history and current functioning. Reviewed vital signs,~Labs/ Radiology~and current medications noted below. Continue current treatment with the changes noted in the dictated addendum note Assessment: Vital Signs/I&O: Vital Signs Date Time Temp Pulse Resp B/P (MAP) Pulse Ox O2 Delivery O2 Flow Rate FiO2 05/25/19 15:33 98.1 60 20 188/78 (114) 97 Room Air I & O 05/24/19 05/24/19 05/25/19 14:59 22:59 06:59 Intake Total 240 ml 290 ml 250 ml Balance 240 ml 290 ml 250 ml Labs: Laboratory Tests Test 05/25/19 09:25 Urine Collection Type Unknown Urine Color Yellow Urine Clarity Clear Urine pH 6.5 Urine Specific [place] 1.015 Urine Protein Neg (NEG-TRACE) Urine Glucose (UA) Neg mg/dL (NEG) Urine Ketones (Stick) Neg mg/dL (NEG) Urine Blood Neg (NEG) Urine Nitrite Neg (NEG) Urine Bilirubin Neg (NEG) Urine Urobilinogen Dipstick 0.2 mg/dL (0.2 mg/dL) Urine Leukocyte Esterase Neg (NEG) Urine RBC 0 /HPF (0-2) Urine WBC 0 /HPF (0-4) Urine Squamous Epithelial Cells None /LPF Urine Bacteria 0 /HPF (0-FEW) Current Medications: Meds: Current Medications Medications (Trade) Dose Ordered Sig/Selwyn Route PRN Reason Start Time Stop Time Status Last Admin Dose Admin Olanzapine (ZyPREXA) 1.25 mg PRN Q2HR PRN PO PSYCHOSIS 05/24/19 22:00 05/24/19 23:33 Aspirin (Aspirin Enteric Coated) 81 mg DAILY PO 05/25/19 12:00 05/25/19 11:54 Levothyroxine Sodium (Synthroid) 50 mcg DAILY06 PO 05/25/19 12:00 05/25/19 11:54 Meloxicam (Mobic) 15 mg DAILY PO 05/25/19 12:00 05/25/19 11:54 Metoprolol Tartrate (Lopressor) 25 mg BID PO 05/25/19 12:00 05/25/19 11:54 I have reviewed the current psychotropics carefully including drug interactions. Risk benefit ratio favors no change other than as noted in my dictated progress note. Diagnosis: Problems: (1) Dementia in Alzheimer's disease with delusions (2) Dementia in Alzheimer's disease with depression (3) Dementia, vascular, with delusions (4) Dementia, vascular, with depression (5) Impulse control disorder (6) Anxiety disorder MARY MADRIGAL MD May 25, 2019 18:50
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
[2019-05-25 19:58] VITALS: BP 163/65
[2019-05-25] MEDS ORDERED: QUEtiapine 50 MG TABLET. PO SCH (21:00)
[2019-05-25] MEDS ORDERED: CLOBETASOL EMOLLIENT 0.05% TOPICAL CREAM 15GM TUBE. TP SCH (21:00)
[2019-05-25 21:17] VITALS: BP 163/65
[2019-05-25] MEDS: OLANZapine 2.5 MG TABLET PO PRN (21:18)
--- NOTE | 2019-05-25 21:38 | NUR ---
CALL PLACED TO DR. HENNESSY REGARDING PT DISCHARGING AND GOING TO [facility]. DR. HENNESSY AGREED AND ORDERS RECEIVED TO CONTINUE MEDICATIONS.
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
--- NOTE | 2019-05-25 23:16 | NUR ---
Pt discharged to [facility]. Report called to KENROY Sewellanimal technician of care. PT night time medications given; vss at this time.
--- NOTE | 2019-05-26 05:00 | PN ---
DATE: SUBJECTIVE: An 89-year-old male in with multiple problems. He has marked dehydration. He has been unable to eat or drink at home. The patient was brought in. He was also quite violent and had episodes of impulse control with his . In any case, he has been receiving IV fluids. OBJECTIVE: VITAL SIGNS: Blood pressure up to 177/68, respirations 16, pulse 70, afebrile. GENERAL: The patient is alert, but confused, disoriented. He does not know the date or time. Knows ____ only. RESPIRATORY: The. patient's lungs have diminished, poor movement of air. CARDIOVASCULAR: Regular sinus rhythm, occasional dropped beat. ABDOMEN: Soft, nontender. EXTREMITIES: No clubbing, cyanosis or edema. NEUROLOGIC: The patient is alert but as noted, disoriented, alert x 1. PLAN: We will go ahead and continue to monitor the patient accordingly. Dr. Alva has been kind enough to review the patient and make timely suggestions. The family would like to have the patient up on the skilled unit for further evaluation there. SHIRLENE HENNESSY MD DR: ANT/kimberly JOB#: [id number] / [id number]
--- NOTE | 2019-05-27 04:55 | PN ---
DATE: 05/25/2019 PSYCHIATRIC PROGRESS NOTE This is a late entry 05/25/2019 covers elements not covered in my initial note. SUBJECTIVE: I met with the patient evening of 05/25/2019 on [address]. He has been anxious, restless, agitated and was sitting by the nursing station because he could not be managed in his room. He is a fall risk as well. KENROY Pineda had gathered further historical information from the family. While at home, he is increasingly confused, trying to elope from the home, he would switch off the air conditioners, disruptive, unmanageable, aggressive. We were not aware of some of this. We also reviewed referral back from Dr. Nascimento to consider transitioning him to the [facility]. REVIEW OF SYSTEMS: No CV, , pulmonary, eye, ENT system symptoms on review. Reliability poor. MENTAL STATUS EXAM: Oriented to himself. Insight, judgment, recent and remote memory, attention, concentration, fund of knowledge poor, consistent with his diagnosis mentioned in my initial note. IMPRESSION: Major neurocognitive disorder, Alzheimer, vascular with delusion, depression, behavioral disturbance; anxiety disorder, unspecified; impulse control disorder, unspecified. Rest unchanged. PLAN: No change from initial note and we will transition him to the [facility] and had called and talked to the nursing staff on the [facility] and previously discussed with nursing staff KENROY Mcdonough as well. MARY MADRIGAL MD DR: AURE/kimberly JOB#: [id number] / [id number]
--- NOTE | 2019-05-27 05:04 | CONS ---
DATE OF CONSULTATION: REASON FOR CONSULTATION: Medical management. HISTORY OF PRESENT ILLNESS: The patient is an 89-year-old male patient, who was admitted to [address] [place] [address] Nascimento's care. Apparently, the patient was admitted with marked dehydration. He has been unable to eat or drink. He was also quite violent and had episodes of impulse control with his and therefore, he was treated with IV fluid and once he is medically stable, he was transferred to [facility]. She apparently has a history of dementia, Alzheimer, vascular. He had been living at home with his and then the had to be hospitalized during the rehabilitation. The son was the caregiver for them. Reportedly, he was overwhelmed to his mother's care. The patient has been increasingly forgetful, confused as part of his dementia, getting more depressed, was dehydrated, agitated, difficult to manage at home with unexplained weight loss and failure to thrive and therefore, he was admitted to [facility] after stabilization in [address] [place] [address]. The patient is very demented and does not give any useful information. PAST MEDICAL HISTORY: Significant for dehydration, failure to thrive, weight loss, history of cancer of the prostate, congestive heart failure, COPD, hypertension, prostate cancer, treated with chemotherapy. He also has musculoskeletal disorder, arthritis and hypothyroidism. PAST SURGICAL HISTORY: Unremarkable. FAMILY HISTORY: Positive for heart disease. SOCIAL HISTORY: The patient seems to be a smoker. He denied any alcohol or drug abuse. He is currently a DNR/DNI. ALLERGIES: HE IS ALLERGIC TO SULFA AND OLMESARTAN. MEDICATIONS: He is currently on following medications: He is on metoprolol 25 mg twice a day, aspirin 81 mg once a day, meloxicam 15 mg daily, quetiapine fumarate 50 mg at bedtime, hydroxyzine 25 mg 3 times a day, levothyroxine sodium 50 mcg once a day and clobetasol emollient applied topically twice a day. REVIEW OF SYSTEMS: As per history of present illness. PHYSICAL EXAMINATION GENERAL: When I examined him this afternoon, he was sitting in the chair comfortably in no apparent distress. He was definitely confused, but not agitated, slightly pale, but no jaundice, cyanosis or thyromegaly. No jugular venous distention. No limb edema. VITAL SIGNS: His heart rate was 67, blood pressure was 163/65, temperature was 97.5, respiratory rate was 18 and oxygen saturation was 94%. HEAD, EYES, EARS, NOSE AND THROAT: Showed normocephalic, atraumatic. NECK: Supple. HEART: Showed normal first and second heart sounds with no gallop or murmur. CHEST: Clear to auscultation. No crepitation, rhonchi. ABDOMEN: Distended, soft, nontender. No guarding or rigidity. No organomegaly. All hernial orifices intact. Bowel sounds normal. NEUROLOGIC: He is demented, but without any obvious lateralizing sign. All his cranial nerves are intact. EXTREMITIES: He moves extremities without difficulty, ambulates without assistance or assistive device, although he is very unsteady on his gait. LABORATORY DATA: Showed a white cell count 7800, hemoglobin 13, hematocrit 39, MCV 87, and platelet count of 135,000. Serum sodium was 135, potassium 4.3, chloride 98, bicarbonate 29, anion gap of 8, BUN 23, creatinine 1.1, estimated GFR was 63 mL per minute. His glucose was 104, calcium was 9.4. Total bilirubin, AST, ALT were normal. Alkaline phosphatase slightly elevated. Total protein was 8, albumin was 3.5. His urinalysis was essentially unremarkable. His chest x-ray showed that cardiomediastinal silhouette is normal. Pulmonary vasculature is normal. The lungs are hyperinflated. There are reticular opacities in the lungs. IMPRESSION: In summary, this is an 89-year-old male patient who was admitted to [facility] after stabilization in [address] [place] [address] for dehydration on account of increasing confusion, unexplained weight loss, failure to thrive. He has been increasingly forgetful, confused, has been also violent and therefore was admitted to this unit for inpatient psychiatric stabilization. Medically, he has multiple medical problems including weight loss and failure to thrive, history of cancer and congestive heart failure, long-term chronic obstructive pulmonary disease, congestive heart failure, hypertension, prostate cancer. He is also known to have hypothyroidism. His vital signs are all generally stable, although he has been very agitated and blood pressure was high, although after treatment with Ativan, his blood pressure came down, all his lab works are well within normal range. PLAN: My plan is to obviously follow his labs and review and make any necessary recommendations. Thank you, Dr. Alva for allowing me to participate in the care of this patient. RISA LAINEZ MD DR: Jody JOB#: [id number] / [id number]
== END 2019-05-25 23:18 | DRG 640 ==
LOC: 1 SOUTH 13:05
PROVIDERS: ADMIT Family Medicine; ATTEND Family Medicine
DX: E86.0 Dehydration (principal); G93.41 Metabolic encephalopathy; E03.9 Hypothyroidism, unspecified; F01.50 Vascular dementia, unspecified severity, without behavioral disturbance, psychotic disturbance, mood disturbance, and anxiety; F02.80 Dementia in other diseases classified elsewhere, unspecified severity, without behavioral disturbance, psychotic disturbance, mood disturbance, and anxiety; F17.200 Nicotine dependence, unspecified, uncomplicated; F32.9 Major depressive disorder, single episode, unspecified; F41.9 Anxiety disorder, unspecified; G30.9 Alzheimer's disease, unspecified; I11.0 Hypertensive heart disease with heart failure; I50.9 Heart failure, unspecified; J44.9 Chronic obstructive pulmonary disease, unspecified; R62.7 Adult failure to thrive; Z66 Do not resuscitate; Z85.46 Personal history of malignant neoplasm of prostate; Z92.21 Personal history of antineoplastic chemotherapy; M19.90 Unspecified osteoarthritis, unspecified site
CPT/HCPCS: 36415; 71045; 80053; 81001; 85025; J1630; J7030

== ENCOUNTER 2019-05-25 22:12 | Inpatient (IN) | payer MEDICARE ==
[~2019-05-25] VITALS: Ht 162.6 cm; Wt 67.2 kg
[~2019-05-25 22:12] MED LIST changes: +CLOB15CR2 TP; +DONE10TA7 PO; +HYDR25TA PO; +MELO15TA6 PO; +QUET50TA5 PO
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
[2019-05-26] MEDS ORDERED: hydrOXYzine HCL 25 MG TABLET PO PRN (01:15)
[2019-05-26] MEDS ORDERED: MAGNESIUM HYDROXIDE 2,400 MG/30 ML ORAL.SUSP. PO PRN (01:30)
[2019-05-26] MEDS ORDERED: MAG HYDROX/AL HYDROX/SIMETH 30 ML ORAL.SUSP PO PRN (01:30)
[2019-05-26] MEDS ORDERED: METHYL SALICYLATE/MENTHOL TOPICAL OINTMENT 57GM TUBE. TP PRN (01:30)
[2019-05-26 03:22] VITALS: BP 191/72
[2019-05-26] MEDS: LORazepam 0.5 MG TABLET PO PRN ×2 (05:48→13:34)
[2019-05-26 05:53] VITALS: BP 208/138
[2019-05-26] MEDS: LEVOTHYROXINE 50 MCG TABLET PO SCH (06:03)
[2019-05-26] MEDS: ASPIRIN ENTERIC COATED 81 MG TABLET.DR. PO SCH (07:48)
[2019-05-26] MEDS: METOPROLOL TART IMMED RELEASE 25 MG TABLET PO SCH ×2 (07:49→20:04)
[2019-05-26] MEDS ORDERED: NON FORMULARY ITEM SQ ONE (09:00)
[2019-05-26] MEDS ORDERED: MELOXICAM 15 MG TABLET. PO SCH (09:00)
[2019-05-26] MEDS: CLOBETASOL EMOLLIENT 0.05% TOPICAL CREAM 15GM TUBE. TP SCH ×2 (09:00→20:04)
--- NOTE | 2019-05-26 13:10 | NUR ---
Pt has been med and assessment compliant. Pt restless at times, does better when given activities/and or gadgets to work on.
[2019-05-26 15:36] VITALS: BP 165/80
[2019-05-26 16:24] LABS: BASO # 0.1 x10^3/uL (0.0-0.2); BASO % 1 % (0-3); EOS # 0.9 x10^3/uL (0.0-0.7); EOS % 11 % (0-3); HEMATOCRIT 41.7 % (39.0-53.0); HEMOGLOBIN 13.8 g/dL (13.0-17.5); LYMPH # 1.2 x10^3/uL (1.0-4.8); LYMPH % 14 % (24-48); MEAN CORPUSCULAR HEMOGLOBIN 29 pg (25-35); MEAN CORPUSCULAR HGB CONC 33 g/dL (31-37); MEAN CORPUSCULAR VOLUME 86 fL (79-100); MONO # 0.6 x10^3/uL (0.0-1.1); MONO % 7 % (0-9); NEUT # 5.7 x10^3uL (1.8-7.7); NEUT % 67 % (31-73); PLATELET COUNT 451 x10^3/uL (140-400); RED BLOOD COUNT 4.85 x10^6/uL (4.30-5.70); RED CELL DISTRIBUTION WIDTH 13.3 % (11.5-14.5); WHITE BLOOD COUNT 8.6 x10^3/uL (4.0-11.0)
[2019-05-26 16:40] LABS: ALBUMIN/GLOBULIN RATIO 0.8 (1.0-1.7); GFR 70.5; MAGNESIUM 2.1 mg/dL (1.8-2.4); POTASSIUM 4.3 mmol/L (3.5-5.1); TOTAL BILIRUBIN 0.5 mg/dL (0.2-1.0)
[2019-05-26] MEDS: SIMVASTATIN 40 MG TABLET. PO SCH (17:04)
--- NOTE | 2019-05-26 20:00 | NUR ---
Pt sitting at table in dayroom playing with crackers. Pt confused and restless. Pt compliant with medication and assessment, just need directions.
[2019-05-26] MEDS: MIRTAZAPINE 7.5 MG TABLET. PO SCH (20:04)
[2019-05-26] MEDS: DONEPEZIL HCL 10 MG TABLET PO SCH (20:04)
[2019-05-26] MEDS: QUEtiapine 50 MG TABLET. PO SCH (20:04)
--- NOTE | 2019-05-26 21:47 | PDOC ---
Exam Note: Alexandr Note: Please also refer to the separate dictated note~for this date of service dictated separately. Discussed the patient with Nursing staff reviewed the chart.~Reviewed interim history and current functioning. Reviewed vital signs,~Labs/ Radiology~and current medications noted below. Continue current treatment with the changes noted in the dictated addendum note Assessment: Vital Signs/I&O: Vital Signs Date Time Temp Pulse Resp B/P (MAP) Pulse Ox O2 Delivery O2 Flow Rate FiO2 05/26/19 20:04 66 165/80 05/26/19 15:36 97.1 20 100 Labs: Laboratory Tests Test 05/26/19 06:24 05/26/19 14:19 25-Hydroxy Vitamin D Total 34.8 ng/mL (30-100) Treponema pallidum Antibody Nonreactive (Nonreactive) White Blood Count 8.6 x10^3/uL (4.0-11.0) Red Blood Count 4.85 x10^6/uL (4.30-5.70) Hemoglobin 13.8 g/dL (13.0-17.5) Hematocrit 41.7 % (39.0-53.0) Mean Corpuscular Volume 86 fL (79-100) Mean Corpuscular Hemoglobin 29 pg (25-35) Mean Corpuscular Hemoglobin Concent 33 g/dL (31-37) Red Cell Distribution Width 13.3 % (11.5-14.5) Platelet Count 451 x10^3/uL (140-400) H Neutrophils (%) (Auto) 67 % (31-73) Lymphocytes (%) (Auto) 14 % (24-48) L Monocytes (%) (Auto) 7 % (0-9) Eosinophils (%) (Auto) 11 % (0-3) H Basophils (%) (Auto) 1 % (0-3) Neutrophils # (Auto) 5.7 x10^3uL (1.8-7.7) Lymphocytes # (Auto) 1.2 x10^3/uL (1.0-4.8) Monocytes # (Auto) 0.6 x10^3/uL (0.0-1.1) Eosinophils # (Auto) 0.9 x10^3/uL (0.0-0.7) H Basophils # (Auto) 0.1 x10^3/uL (0.0-0.2) Sodium Level 132 mmol/L (136-145) L Potassium Level 4.3 mmol/L (3.5-5.1) Chloride Level 96 mmol/L (98-107) L Carbon Dioxide Level 28 mmol/L (21-32) Anion Gap 8 (6-14) Blood Urea Nitrogen 16 mg/dL (8-26) Creatinine 1.0 mg/dL (0.7-1.3) Estimated GFR (Cockcroft-Gault) 70.5 BUN/Creatinine Ratio 16 (6-20) Glucose Level 91 mg/dL (70-99) Calcium Level 10.0 mg/dL (8.5-10.1) Magnesium Level 2.1 mg/dL (1.8-2.4) Total Bilirubin 0.5 mg/dL (0.2-1.0) Aspartate Amino Transferase (AST) 28 U/L (15-37) Alanine Aminotransferase (ALT) 20 U/L (16-63) Alkaline Phosphatase 148 U/L (46-116) H Total Protein 9.0 g/dL (6.4-8.2) H Albumin 4.0 g/dL (3.4-5.0) Albumin/Globulin Ratio 0.8 (1.0-1.7) L Current Medications: Meds: Current Medications Medications (Trade) Dose Ordered Sig/Selwyn Route PRN Reason Start Time Stop Time Status Last Admin Dose Admin Aspirin (Aspirin Enteric Coated) 81 mg DAILYWBKFT PO 05/26/19 08:00 05/26/19 07:49 Levothyroxine Sodium (Synthroid) 50 mcg DAILY06 PO 05/26/19 06:00 05/26/19 06:03 Meloxicam (Mobic) 15 mg DAILY PO 05/26/19 09:00 05/26/19 13:39 DC 05/26/19 07:49 Metoprolol Tartrate (Lopressor) 25 mg BID PO 05/26/19 09:00 05/26/19 20:04 Simvastatin (Zocor) 40 mg DAILY16 PO 05/26/19 16:00 05/26/19 17:04 Donepezil HCl (Aricept) 10 mg QHS PO 05/26/19 21:00 05/26/19 20:04 Hydroxyzine HCl (Atarax) 25 mg PRN TID PRN PO ITCHING 05/26/19 01:15 05/26/19 17:06 Quetiapine Fumarate (SEROquel) 50 mg QHS PO 05/26/19 21:00 05/26/19 20:04 Olanzapine (ZyPREXA ZYDIS) 2.5 mg PRN Q2HR PRN PO PSYCHOSIS 05/26/19 02:45 05/26/19 17:04 Lorazepam (Ativan) 0.5 mg PRN Q2HR PRN PO ANXIETY / AGITATION 05/26/19 05:45 05/26/19 13:35 Mirtazapine (Remeron) 7.5 mg QHS PO 05/26/19 21:00 05/26/19 20:04 I have reviewed the current psychotropics carefully including drug interactions. Risk benefit ratio favors no change other than as noted in my dictated progress note. Diagnosis: Problems: (1) Anxiety disorder (2) Impulse control disorder (3) Dementia, vascular, with depression (4) Dementia, vascular, with delusions (5) Dementia in Alzheimer's disease with depression (6) Dementia in Alzheimer's disease with delusions MARY MADRIGAL MD May 26, 2019 21:47
[2019-05-27 02:07] LABS: HEMOGLOBIN A1C 5.8 % (4.8-5.6)
[2019-05-27] MEDS: LEVOTHYROXINE 50 MCG TABLET PO SCH (05:29)
[2019-05-27 05:49] VITALS: BP 174/77
[2019-05-27] MEDS: METOPROLOL TART IMMED RELEASE 25 MG TABLET PO SCH ×2 (08:17→20:13)
[2019-05-27] MEDS: ASPIRIN ENTERIC COATED 81 MG TABLET.DR. PO SCH (08:17)
[2019-05-27] MEDS: CLOBETASOL EMOLLIENT 0.05% TOPICAL CREAM 15GM TUBE. TP SCH ×2 (09:00→20:15)
--- NOTE | 2019-05-27 10:39 | NUR ---
Pt is calm, cooperative, compliant, and confused. No agitation, no aggression, no hallucinations or delusions. Pt is compliant with cares, medications, and assessment.
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
[2019-05-27 13:57] LABS: THYROID STIM HORMONE (TSH) 4.286 uIU/mL (0.358-3.740)
[2019-05-27 15:39] VITALS: BP 138/75
[2019-05-27] MEDS: SIMVASTATIN 40 MG TABLET. PO SCH (16:40)
[2019-05-27] MEDS: MIRTAZAPINE 7.5 MG TABLET. PO SCH (20:13)
[2019-05-27] MEDS: DONEPEZIL HCL 10 MG TABLET PO SCH (20:13)
[2019-05-27] MEDS: QUEtiapine 50 MG TABLET. PO SCH (20:13)
--- NOTE | 2019-05-27 21:48 | PDOC ---
Exam Note: Alexandr Note: Please also refer to the separate dictated note~for this date of service dictated separately.~Patient seen individually. Discussed the patient with Nursing staff reviewed the chart.~Reviewed interim history and current functioning. Reviewed vital signs,~Labs/ Radiology~and current medications noted below. Continue current treatment with the changes noted in the dictated addendum note Assessment: Vital Signs/I&O: Vital Signs Date Time Temp Pulse Resp B/P (MAP) Pulse Ox O2 Delivery O2 Flow Rate FiO2 05/27/19 20:15 76 138/75 05/27/19 15:39 98.6 18 97 05/27/19 05:49 Room Air I & O 05/26/19 05/26/19 05/27/19 15:00 23:00 07:00 Intake Total 600 ml 120 ml Balance 600 ml 120 ml Current Medications: I have reviewed the current psychotropics carefully including drug interactions. Risk benefit ratio favors no change other than as noted in my dictated progress note. 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
[2019-05-28 05:54] VITALS: BP 180/71
[2019-05-28] MEDS: LEVOTHYROXINE 50 MCG TABLET PO SCH (06:00)
[2019-05-28] MEDS: METOPROLOL TART IMMED RELEASE 25 MG TABLET PO SCH ×2 (09:02→19:59)
[2019-05-28] MEDS: ASPIRIN ENTERIC COATED 81 MG TABLET.DR. PO SCH (09:02)
[2019-05-28] MEDS: CLOBETASOL EMOLLIENT 0.05% TOPICAL CREAM 15GM TUBE. TP SCH ×2 (09:03→20:01)
[2019-05-28] MEDS: DOCUSATE SODIUM 100 MG CAPSULE PO SCH (09:05)
[2019-05-28] MEDS: SERTRALINE 25 MG TABLET. PO SCH (09:05)
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
--- NOTE | 2019-05-28 14:45 | NUR ---
Patient has been pleasant and cooperative today. He took medications whole a few at a time with water. He has some elevated labs, will speak to Dr. Potter on rounds about them. Red L. eye looks reddened and irritated near lower eye lid. Will continue to monitor.
[2019-05-28] MEDS: SIMVASTATIN 40 MG TABLET. PO SCH (15:37)
[2019-05-28 15:44] VITALS: BP 127/66
[2019-05-28] MEDS: ACETAMINOPHEN 325 MG TABLET PO PRN (15:46)
--- NOTE | 2019-05-28 18:46 | NUR ---
Dr. Potter reviewed patients labs from 05/28 and gave no new orders. He also stated that the TSH is compensated by the T4, T3 values.
[2019-05-28] MEDS: DONEPEZIL HCL 10 MG TABLET PO SCH (19:59)
[2019-05-28] MEDS: MIRTAZAPINE 7.5 MG TABLET. PO SCH (19:59)
[2019-05-28] MEDS: QUEtiapine 50 MG TABLET. PO SCH (19:59)
--- NOTE | 2019-05-28 20:30 | NUR ---
Pt walking in day room pleasant and cooperative. Meds taken whole with some prompting. No behaviors.
--- NOTE | 2019-05-28 21:09 | PDOC ---
Exam Note: Alexandr Note: Please also refer to the separate dictated note~for this date of service dictated separately.~Patient seen individually. Discussed the patient with Nursing staff reviewed the chart.~Reviewed interim history and current functioning. Reviewed vital signs,~Labs/ Radiology~and current medications noted below. Continue current treatment with the changes noted in the dictated addendum note Assessment: Vital Signs/I&O: Vital Signs Date Time Temp Pulse Resp B/P (MAP) Pulse Ox O2 Delivery O2 Flow Rate FiO2 05/28/19 20:01 67 127/66 05/28/19 15:44 98.8 18 96 05/27/19 05:49 Room Air I & O 05/27/19 05/27/19 05/28/19 14:59 22:59 06:59 Intake Total 600 ml 720 ml Balance 600 ml 720 ml Current Medications: Meds: Current Medications Medications (Trade) Dose Ordered Sig/Selwyn Route PRN Reason Start Time Stop Time Status Last Admin Dose Admin Docusate Sodium (Colace) 100 mg DAILY PO 05/28/19 09:00 05/28/19 09:05 Sertraline HCl (Zoloft) 25 mg DAILY PO 05/28/19 09:00 05/31/19 08:59 05/28/19 09:05 I have reviewed the current psychotropics carefully including drug interactions. Risk benefit ratio favors no change other than as noted in my dictated progress note. Diagnosis: Problems: (1) Major neurocognitive disorder, due to vascular disease, with behavioral disturbance, mild (2) Anxiety disorder (3) Impulse control disorder (4) Dementia, vascular, with depression (5) Dementia, vascular, with delusions (6) Dementia in Alzheimer's disease with depression (7) Dementia in Alzheimer's disease with delusions MARY MADRIGAL MD May 28, 2019 21:09
--- NOTE | 2019-05-29 00:45 | PN ---
DATE: 05/28/2019 PSYCHIATRIC PROGRESS NOTE This late entry 05/27/2019, covers elements not covered in my initial note. SUBJECTIVE: I met with the patient evening of 05/27/2019. The patient slept 7 hours previous night. He remains confused, restless, the previous night, but during the day on 05/27/2019 was calm, cooperative, confused, but compliant. REVIEW OF SYSTEMS: No CV, , pulmonary, eye, ENT system symptoms on review. Reliability poor. Gait unsteady, in wheelchair. MENTAL STATUS EXAM: Oriented to himself. Insight, judgment, recent and remote memory, attention, concentration, fund of knowledge poor, consistent with his diagnosis mentioned in my initial note. PLAN: No change from initial note and we will start Zoloft 25 mg a day for his mood and anxiety symptoms. Rest unchanged for now. MAN Sulaiman MADRIGAL MD DR: AURE/kimberly JOB#: [id number] / [id number]
[2019-05-29] MEDS: LEVOTHYROXINE 50 MCG TABLET PO SCH (05:11)
[2019-05-29 05:27] VITALS: BP 171/76
[2019-05-29] MEDS: METOPROLOL TART IMMED RELEASE 25 MG TABLET PO SCH ×2 (09:06→20:12)
[2019-05-29] MEDS: DOCUSATE SODIUM 100 MG CAPSULE PO SCH (09:06)
[2019-05-29] MEDS: SERTRALINE 25 MG TABLET. PO SCH (09:06)
[2019-05-29] MEDS: ASPIRIN ENTERIC COATED 81 MG TABLET.DR. PO SCH (09:06)
[2019-05-29] MEDS: CLOBETASOL EMOLLIENT 0.05% TOPICAL CREAM 15GM TUBE. TP SCH ×2 (09:22→20:12)
--- NOTE | 2019-05-29 10:26 | NUR ---
WEEKLY NOTE: Pt , Latha, participated in tx team via telephone. Pt is eating 50-75% of meals and sleeping roughly 6 hours of sleep. Pt is calm and compliant with staff and cares. Pt is medication compliant and takes medications whole. Pt is currently at home with a hip fracture and will be doing outpt therapy. Pt cognition has decreased over the last year and his agitation was worsening. Pt wanted to argue more and nothing was making him happy. Pt was walking out to the house, turning the air off, et cetera. It is recommended that pt attend a step down program to give time to heal and to also allow for him to be more stabilized.
--- NOTE | 2019-05-29 10:28 | NUR ---
WEEKLY ACTIVITY THERAPY NOTE Date of Admission: 05/26/2019 Date of AT Assessment: TBD Goal aimed: TBD Initial Goal: TBD Weekly progress towards goal: TBD Group participation level: Weekly highlights: 1:1 activity using lock box Behaviors observed: distracted, got up and tried to leave abruptly, mumbled something about his on Sunday, more calm and quiet as the week has gone on, exercises on Sun, tapped toes to music on Sun Plan: MEET/ASSESS PT Beneficial adaptations: direct prompting
--- NOTE | 2019-05-29 13:12 | NUR ---
Patient pleasant and cooperative, med compliant. He spent most of the morning in the day room. 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 At one time he worked for [employer]. He had a pool noodle and was participating in the exercise group this morning.
--- NOTE | 2019-05-29 15:30 | NUR ---
Activity Therapy Assessment Completed based on observation, interview and [facility] notes. Pt. was sitting in the day room after group when therapist approached. Pt. smiled and was polite in his interactions. Pt. walks independently but can be unstable at times. Pt. wears glasses as well. 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 Pt. lives with his , Latha, in [place] and he prefers to go by 'Gene'. Pt. stated he also enjoys reading [employer], [email or web address], [employer] and 'mechanics'. Pt. is calm, compliant, and generally pleasant around others. Pt. is often around group and needs direct prompting to engage as well as processing time when asking questions or given tasks. Pt. has three children from a previous marriage but according to JONY, they do no have much of a relationship. Pt. has stated that Pt. is 'well known' amongst motorcycle enthusiasts around [facility]. JONY is considering a step down program upon discharge, to allow Pt. time to recover from her hip fracture before Pt. returns to their home. Initial goal aimed to increase leisure engagement: Pt. will participate in three Activity Therapy groups per week. Addendum: 06/12/19 at 1022 by MARITZA PERALTA ACT Goal changed 06/12/19: Pt. will participate in at least one Activity Therapy group per day
[2019-05-29 15:50] VITALS: BP 155/74
[2019-05-29] MEDS: SIMVASTATIN 40 MG TABLET. PO SCH (17:18)
[2019-05-29] MEDS: QUEtiapine 50 MG TABLET. PO SCH (20:11)
[2019-05-29] MEDS: DONEPEZIL HCL 10 MG TABLET PO SCH (20:12)
[2019-05-29] MEDS: MIRTAZAPINE 7.5 MG TABLET. PO SCH (20:12)
--- NOTE | 2019-05-29 22:01 | PDOC ---
Exam Note: Alexandr Note: Please also refer to the separate dictated note~for this date of service dictated separately.~Patient seen individually. Discussed the patient with Nursing staff reviewed the chart.~Reviewed interim history and current functioning. Reviewed vital signs,~Labs/ Radiology~and current medications noted below. Continue current treatment with the changes noted in the dictated addendum note Assessment: Vital Signs/I&O: Vital Signs Date Time Temp Pulse Resp B/P (MAP) Pulse Ox O2 Delivery O2 Flow Rate FiO2 05/29/19 20:12 69 155/74 05/29/19 15:50 97.4 18 97 Room Air I & O 05/28/19 05/28/19 05/29/19 14:59 22:59 06:59 Intake Total 200 ml 240 ml 240 ml Balance 200 ml 240 ml 240 ml Current Medications: I have reviewed the current psychotropics carefully including drug interactions. Risk benefit ratio favors no change other than as noted in my dictated progress note. Diagnosis: Problems: (1) Major neurocognitive disorder, due to vascular disease, with behavioral disturbance, mild (2) Anxiety disorder (3) Impulse control disorder (4) Dementia, vascular, with depression (5) Dementia, vascular, with delusions (6) Dementia in Alzheimer's disease with depression (7) Dementia in Alzheimer's disease with delusions MARY MADRIGAL MD May 29, 2019 22:01
--- NOTE | 2019-05-30 02:24 | NUR ---
Last evening pt sat quietly in day room. He took meds whole with some cueing. He has been pleasant and cooperative with no behaviors.
[2019-05-30 06:00] VITALS: BP 150/63
[2019-05-30] MEDS: LEVOTHYROXINE 50 MCG TABLET PO SCH (06:00)
[2019-05-30] MEDS: DOCUSATE SODIUM 100 MG CAPSULE PO SCH (08:44)
[2019-05-30] MEDS: CLOBETASOL EMOLLIENT 0.05% TOPICAL CREAM 15GM TUBE. TP SCH ×2 (08:44→23:55)
[2019-05-30] MEDS: ASPIRIN ENTERIC COATED 81 MG TABLET.DR. PO SCH (08:44)
[2019-05-30] MEDS: SERTRALINE 25 MG TABLET. PO SCH (08:44)
[2019-05-30] MEDS: METOPROLOL TART IMMED RELEASE 25 MG TABLET PO SCH ×2 (08:44→20:31)
--- NOTE | 2019-05-30 11:09 | NUR ---
Pt has been calm, cooperative and interactive with staff. Compliant with whole medications. A/O to self. Currently sitting calmly in dayroom.
[2019-05-30 16:56] VITALS: BP 137/71
[2019-05-30] MEDS: SIMVASTATIN 40 MG TABLET. PO SCH (17:26)
--- NOTE | 2019-05-30 20:28 | PN ---
DATE: 05/28/2019 PSYCHIATRIC PROGRESS NOTE This late entry, 05/28/2019, covers elements not covered in my initial note. SUBJECTIVE: I met with the patient evening of 05/28/2019. The patient slept 5-3/4 hours previous night. He remains confused, but done better during the day, per Rebecca, the nursing staff. REVIEW OF SYSTEMS: Ambulation impaired. No CV, , pulmonary, eye, ENT system symptoms on review. Reliability poor. MENTAL STATUS EXAM: Oriented to himself. Insight, judgment, recent and remote memory, attention, concentration, fund of knowledge poor, consistent with his diagnosis mentioned in my initial note. PLAN: No change from initial note, but after he has been on Zoloft 25 mg a day for 3 days, we will increase to 50 mg a day. Rest unchanged for now. MAN Sulaiman MADRIGAL MD DR: AURE/ikmberly JOB#: [id number] / [id number]
[2019-05-30] MEDS: QUEtiapine 50 MG TABLET. PO SCH (20:29)
[2019-05-30] MEDS: MIRTAZAPINE 7.5 MG TABLET. PO SCH (20:29)
[2019-05-30] MEDS: DONEPEZIL HCL 10 MG TABLET PO SCH (20:30)
--- NOTE | 2019-05-30 21:45 | PDOC ---
Exam Note: Alexandr Note: Please also refer to the separate dictated note~for this date of service dictated separately.~Patient seen individually. Discussed the patient with Nursing staff reviewed the chart.~Reviewed interim history and current functioning. Reviewed vital signs,~Labs/ Radiology~and current medications noted below. Continue current treatment with the changes noted in the dictated addendum note Assessment: Vital Signs/I&O: Vital Signs Date Time Temp Pulse Resp B/P (MAP) Pulse Ox O2 Delivery O2 Flow Rate FiO2 05/30/19 20:31 89 157/64 05/30/19 16:56 98.0 18 96 05/29/19 15:50 Room Air I & O 05/29/19 05/29/19 05/30/19 14:59 22:59 06:59 Intake Total 1200 ml 480 ml 240 ml Balance 1200 ml 480 ml 240 ml Current Medications: I have reviewed the current psychotropics carefully including drug interactions. Risk benefit ratio favors no change other than as noted in my dictated progress note. Diagnosis: Problems: (1) Major neurocognitive disorder, due to vascular disease, with behavioral disturbance, mild (2) Impulse control disorder (3) Dementia, vascular, with depression (4) Dementia, vascular, with delusions (5) Dementia in Alzheimer's disease with depression (6) Dementia in Alzheimer's disease with delusions (7) Anxiety disorder MARY MADRIGAL MD May 30, 2019 21:45
--- NOTE | 2019-05-30 23:34 | PN ---
DATE: 05/29/2019 This late entry 05/29/2019 covers elements not covered in my initial note. I met with the patient evening of 05/29/2019. SUBJECTIVE: The patient was also staffed at treatment team meeting with the entire team in the morning. The patient's appetite is 50-75%, sleeping about 6 hours average. His , Latha attended the treatment team meeting. We had a lengthy discussion about his diagnosis and being unmanageable at home, worsening confusion. On the unit, he has been calmer, cooperative, compliant with assessments. No CV, , Pulmonary, eye, ENT system symptoms on review. Gait is somewhat unsteady. MENTAL STATUS EXAMINATION: Oriented to himself. Insight and judgment, recent and remote memory, attention, concentration, fund of knowledge poor, consistent with this diagnosis as mentioned in my initial note. PLAN: No change from initial note. MAN Sulaiman MADRIGAL MD DR: AURE/kimberly JOB#: [id number] / [id number]
--- NOTE | 2019-05-31 00:16 | NUR ---
Nursing Note: Assumed care of pt. this evening, he was sitting out in the day room. He has been calm, interacting with staff appropriately, and cooperative. He has been compliant with taking his HS meds whole. No behaviors noted at this time.
[2019-05-31 05:50] VITALS: BP 151/61
[2019-05-31] MEDS: LEVOTHYROXINE 50 MCG TABLET PO SCH (06:02)
[2019-05-31] MEDS: ASPIRIN ENTERIC COATED 81 MG TABLET.DR. PO SCH (09:27)
[2019-05-31] MEDS: METOPROLOL TART IMMED RELEASE 25 MG TABLET PO SCH ×2 (09:27→20:32)
[2019-05-31] MEDS: DOCUSATE SODIUM 100 MG CAPSULE PO SCH (09:27)
[2019-05-31] MEDS: SERTRALINE 50 MG TABLET. PO SCH (09:29)
[2019-05-31] MEDS: CLOBETASOL EMOLLIENT 0.05% TOPICAL CREAM 15GM TUBE. TP SCH ×2 (12:15→21:14)
--- NOTE | 2019-05-31 15:25 | NUR ---
Patient calm and cooperative. Compliant with medication administration and assessment. Patient interested in communicating and receptive to education. No behaviors noted this shift. Will continue to monitor.
[2019-05-31 15:28] VITALS: BP 159/70
[2019-05-31] MEDS: SIMVASTATIN 40 MG TABLET. PO SCH (15:49)
--- NOTE | 2019-05-31 19:58 | PDOC ---
Exam Note: Alexandr Note: Please also refer to the separate dictated note~for this date of service dictated separately.~Patient seen individually. Discussed the patient with Nursing staff reviewed the chart.~Reviewed interim history and current functioning. Reviewed vital signs,~Labs/ Radiology~and current medications noted below. Continue current treatment with the changes noted in the dictated addendum note Assessment: Vital Signs/I&O: Vital Signs Date Time Temp Pulse Resp B/P (MAP) Pulse Ox O2 Delivery O2 Flow Rate FiO2 05/31/19 15:28 98.5 66 16 159/70 (99) 96 05/29/19 15:50 Room Air I & O 05/30/19 05/30/19 05/31/19 15:00 23:00 07:00 Intake Total 960 ml 480 ml Balance 960 ml 480 ml Current Medications: Meds: Current Medications Medications (Trade) Dose Ordered Sig/Selwyn Route PRN Reason Start Time Stop Time Status Last Admin Dose Admin Sertraline HCl (Zoloft) 50 mg DAILY PO 05/31/19 09:00 05/31/19 09:29 I have reviewed the current psychotropics carefully including drug interactions. Risk benefit ratio favors no change other than as noted in my dictated progress note. Diagnosis: Problems: (1) Major neurocognitive disorder, due to vascular disease, with behavioral disturbance, mild (2) Anxiety disorder (3) Impulse control disorder (4) Dementia, vascular, with depression (5) Dementia, vascular, with delusions (6) Dementia in Alzheimer's disease with depression (7) Dementia in Alzheimer's disease with delusions MARY MADRIGAL MD May 31, 2019 19:58
[2019-05-31] MEDS: MIRTAZAPINE 7.5 MG TABLET. PO SCH (20:32)
[2019-05-31] MEDS: DONEPEZIL HCL 10 MG TABLET PO SCH (20:32)
[2019-05-31] MEDS: QUEtiapine 50 MG TABLET. PO SCH (20:32)
--- NOTE | 2019-05-31 22:47 | NUR ---
Nursing Note: Assumed care of pt. this evening, he was sitting in the day room. He has been calm, pleasantly confused, and interacting with staff. He has been compliant with taking his HS meds whole this evening. No agitation or aggression noted at this time.
[2019-06-01 06:03] VITALS: BP 159/68
[2019-06-01] MEDS: LEVOTHYROXINE 50 MCG TABLET PO SCH (06:12)
[2019-06-01] MEDS: ASPIRIN ENTERIC COATED 81 MG TABLET.DR. PO SCH (07:57)
[2019-06-01] MEDS: SERTRALINE 50 MG TABLET. PO SCH (07:58)
[2019-06-01] MEDS: DOCUSATE SODIUM 100 MG CAPSULE PO SCH (07:58)
[2019-06-01] MEDS: METOPROLOL TART IMMED RELEASE 25 MG TABLET PO SCH ×2 (07:58→19:55)
[2019-06-01] MEDS: CLOBETASOL EMOLLIENT 0.05% TOPICAL CREAM 15GM TUBE. TP SCH ×2 (08:24→19:55)
--- NOTE | 2019-06-01 11:11 | NUR ---
Patient was eating breakfast during morning assessment, took medications, allowed for assessment. Patient was very kind, talkative to the nurse, no agitation noted. Patient denies pain. Will continue to monitor.
[2019-06-01 16:15] VITALS: BP 156/59
[2019-06-01] MEDS: SIMVASTATIN 40 MG TABLET. PO SCH (16:57)
[2019-06-01] MEDS: MIRTAZAPINE 7.5 MG TABLET. PO SCH (19:53)
[2019-06-01] MEDS: DONEPEZIL HCL 10 MG TABLET PO SCH (19:53)
[2019-06-01] MEDS: QUEtiapine 50 MG TABLET. PO SCH (19:53)
--- NOTE | 2019-06-01 21:43 | PDOC ---
Exam Note: Alexandr Note: Please also refer to the separate dictated note~for this date of service dictated separately.~Patient seen individually. Discussed the patient with Nursing staff reviewed the chart.~Reviewed interim history and current functioning. Reviewed vital signs,~Labs/ Radiology~and current medications noted below. Continue current treatment with the changes noted in the dictated addendum note Assessment: Vital Signs/I&O: Vital Signs Date Time Temp Pulse Resp B/P (MAP) Pulse Ox O2 Delivery O2 Flow Rate FiO2 06/01/19 19:55 63 156/59 06/01/19 16:15 98.0 20 97 05/29/19 15:50 Room Air I & O 05/31/19 05/31/19 06/01/19 15:00 23:00 07:00 Intake Total 960 ml 600 ml Balance 960 ml 600 ml Current Medications: I have reviewed the current psychotropics carefully including drug interactions. Risk benefit ratio favors no change other than as noted in my dictated progress note. Diagnosis: Problems: (1) Major neurocognitive disorder, due to vascular disease, with behavioral disturbance, mild (2) Anxiety disorder (3) Impulse control disorder (4) Dementia, vascular, with depression (5) Dementia, vascular, with delusions (6) Dementia in Alzheimer's disease with depression (7) Dementia in Alzheimer's disease with delusions MARY MADRIGAL MD Jun 01, 2019 21:43
--- NOTE | 2019-06-01 21:55 | PN ---
DATE: 05/30/2019 PSYCHIATRIC PROGRESS NOTE This late entry 05/30/2019 covers elements not covered in my initial note. SUBJECTIVE: I met with the patient in the evening of 05/30/2019. The patient slept 7-1/4 hours previous night. He has been confused, but more cooperative, interactive, dancing in the music therapy group. Nursing staff will describe him as being "cute". He is quite redirectable. REVIEW OF SYSTEMS: No CV, , pulmonary, eye, ENT system symptoms on review. Reliability poor. MENTAL STATUS EXAM: Oriented to himself. Insight, judgment, recent and remote memory, attention, concentration, fund of knowledge poor, consistent with his diagnosis mentioned in my initial note. PLAN: No change from initial note. MAN Sulaiman MADRIGAL MD DR: AURE/kimberly JOB#: [id number] / [id number]
--- NOTE | 2019-06-01 21:56 | PN ---
DATE: 05/31/2019 PSYCHIATRIC PROGRESS NOTE. This late entry of 05/31/2019 covers the elements not covered in my initial note. SUBJECTIVE: I met with the patient in the evening of 05/31/2019. The patient slept 7-3/4 hours previous night. Remains confused, compliant with medications, pleasant. REVIEW OF SYSTEMS: No CV, , pulmonary, eye, ENT system symptoms on review. Reliability poor. MENTAL STATUS EXAM: Oriented to himself. Insight, judgment, recent and remote memory, attention, concentration, fund of knowledge poor, consistent with his diagnosis mentioned in my initial note. PLAN: No change from initial note. MAN Sulaiman MADRIGAL MD DR: AURE/kimberly JOB#: [id number] / [id number]
[2019-06-02] MEDS: LEVOTHYROXINE 50 MCG TABLET PO SCH (05:48)
[2019-06-02 06:13] VITALS: BP 150/85
[2019-06-02] MEDS: CLOBETASOL EMOLLIENT 0.05% TOPICAL CREAM 15GM TUBE. TP SCH ×2 (09:00→20:23)
[2019-06-02 09:17] LABS: BASO # 0.1 x10^3/uL (0.0-0.2); BASO % 1 % (0-3); EOS # 0.9 x10^3/uL (0.0-0.7); EOS % 10 % (0-3); HEMATOCRIT 37.3 % (39.0-53.0); HEMOGLOBIN 12.2 g/dL (13.0-17.5); LYMPH # 1.2 x10^3/uL (1.0-4.8); LYMPH % 13 % (24-48); MEAN CORPUSCULAR HEMOGLOBIN 28 pg (25-35); MEAN CORPUSCULAR HGB CONC 33 g/dL (31-37); MEAN CORPUSCULAR VOLUME 87 fL (79-100); MONO # 0.7 x10^3/uL (0.0-1.1); MONO % 8 % (0-9); NEUT # 6.3 x10^3uL (1.8-7.7); NEUT % 68 % (31-73); PLATELET COUNT 403 x10^3/uL (140-400); RED BLOOD COUNT 4.29 x10^6/uL (4.30-5.70); RED CELL DISTRIBUTION WIDTH 13.8 % (11.5-14.5); WHITE BLOOD COUNT 9.2 x10^3/uL (4.0-11.0)
[2019-06-02 09:36] LABS: ALBUMIN 3.3 g/dL (3.4-5.0); ALBUMIN/GLOBULIN RATIO 0.8 (1.0-1.7); CALCIUM 9.7 mg/dL (8.5-10.1); GFR 70.5; POTASSIUM 4.2 mmol/L (3.5-5.1); TOTAL BILIRUBIN 0.3 mg/dL (0.2-1.0); TOTAL PROTEIN 7.5 g/dL (6.4-8.2)
[2019-06-02] MEDS: ASPIRIN ENTERIC COATED 81 MG TABLET.DR. PO SCH (09:46)
[2019-06-02] MEDS: DOCUSATE SODIUM 100 MG CAPSULE PO SCH (09:46)
[2019-06-02] MEDS: METOPROLOL TART IMMED RELEASE 25 MG TABLET PO SCH ×2 (09:47→20:21)
[2019-06-02] MEDS: SERTRALINE 50 MG TABLET. PO SCH (09:47)
--- NOTE | 2019-06-02 12:38 | NUR ---
No agitation, no aggression, no hallucinations or delusions. Pt is compliant with cares, medications, and assessment. Pt is calm, cooperative, compliant, and confused.
[2019-06-02] MEDS: SIMVASTATIN 40 MG TABLET. PO SCH (16:10)
[2019-06-02 16:23] VITALS: BP 156/71
[2019-06-02] MEDS: MIRTAZAPINE 7.5 MG TABLET. PO SCH (20:21)
[2019-06-02] MEDS: QUEtiapine 50 MG TABLET. PO SCH (20:21)
[2019-06-02] MEDS: DONEPEZIL HCL 10 MG TABLET PO SCH (20:21)
--- NOTE | 2019-06-02 21:40 | PDOC ---
Exam Note: Alexandr Note: Please also refer to the separate dictated note~for this date of service dictated separately.~Patient seen individually. Discussed the patient with Nursing staff reviewed the chart.~Reviewed interim history and current functioning. Reviewed vital signs,~Labs/ Radiology~and current medications noted below. Continue current treatment with the changes noted in the dictated addendum note Assessment: Vital Signs/I&O: Vital Signs Date Time Temp Pulse Resp B/P (MAP) Pulse Ox O2 Delivery O2 Flow Rate FiO2 06/02/19 20:23 60 156/71 06/02/19 16:23 97.8 20 98 05/29/19 15:50 Room Air I & O 06/01/19 06/01/19 06/02/19 15:00 23:00 07:00 Intake Total 960 ml 240 ml 120 ml Balance 960 ml 240 ml 120 ml Labs: Laboratory Tests Test 06/02/19 09:04 White Blood Count 9.2 x10^3/uL (4.0-11.0) Red Blood Count 4.29 x10^6/uL (4.30-5.70) L Hemoglobin 12.2 g/dL (13.0-17.5) L Hematocrit 37.3 % (39.0-53.0) L Mean Corpuscular Volume 87 fL (79-100) Mean Corpuscular Hemoglobin 28 pg (25-35) Mean Corpuscular Hemoglobin Concent 33 g/dL (31-37) Red Cell Distribution Width 13.8 % (11.5-14.5) Platelet Count 403 x10^3/uL (140-400) H Neutrophils (%) (Auto) 68 % (31-73) Lymphocytes (%) (Auto) 13 % (24-48) L Monocytes (%) (Auto) 8 % (0-9) Eosinophils (%) (Auto) 10 % (0-3) H Basophils (%) (Auto) 1 % (0-3) Neutrophils # (Auto) 6.3 x10^3uL (1.8-7.7) Lymphocytes # (Auto) 1.2 x10^3/uL (1.0-4.8) Monocytes # (Auto) 0.7 x10^3/uL (0.0-1.1) Eosinophils # (Auto) 0.9 x10^3/uL (0.0-0.7) H Basophils # (Auto) 0.1 x10^3/uL (0.0-0.2) Sodium Level 135 mmol/L (136-145) L Potassium Level 4.2 mmol/L (3.5-5.1) Chloride Level 97 mmol/L (98-107) L Carbon Dioxide Level 28 mmol/L (21-32) Anion Gap 10 (6-14) Blood Urea Nitrogen 18 mg/dL (8-26) Creatinine 1.0 mg/dL (0.7-1.3) Estimated GFR (Cockcroft-Gault) 70.5 BUN/Creatinine Ratio 18 (6-20) Glucose Level 80 mg/dL (70-99) Calcium Level 9.7 mg/dL (8.5-10.1) Total Bilirubin 0.3 mg/dL (0.2-1.0) Aspartate Amino Transferase (AST) 21 U/L (15-37) Alanine Aminotransferase (ALT) 18 U/L (16-63) Alkaline Phosphatase 124 U/L (46-116) H Total Protein 7.5 g/dL (6.4-8.2) Albumin 3.3 g/dL (3.4-5.0) L Albumin/Globulin Ratio 0.8 (1.0-1.7) L Current Medications: I have reviewed the current psychotropics carefully including drug interactions. Risk benefit ratio favors no change other than as noted in my dictated progress note. Diagnosis: Problems: (1) Major neurocognitive disorder, due to vascular disease, with behavioral disturbance, mild (2) Anxiety disorder (3) Impulse control disorder (4) Dementia, vascular, with depression (5) Dementia, vascular, with delusions (6) Dementia in Alzheimer's disease with depression (7) Dementia in Alzheimer's disease with delusions MARY MADRIGAL MD Jun 02, 2019 21:40
--- NOTE | 2019-06-02 22:06 | PN ---
DATE: 06/01/2019 PSYCHIATRIC PROGRESS NOTE. This late entry of 06/01/2019 covers the elements not covered in my initial note. SUBJECTIVE: I met with the patient on evening of 06/01/2019. The patient slept 7-1/2 hours previous night. He remains confused, but less anxious, less irritable. REVIEW OF SYSTEMS: No CV, , pulmonary, eye, ENT system symptoms on review. Reliability poor. MENTAL STATUS EXAM: Oriented to himself. Insight, judgment, recent and remote memory, attention, concentration, fund of knowledge poor, consistent with his diagnosis mentioned in my initial note. PLAN: No change from initial note. MAN Sulaiman MADRIGAL MD DR: AURE/kimberly JOB#: [id number] / [id number]
--- NOTE | 2019-06-03 00:51 | NUR ---
Last evening pt sat quietly in day room watching unit activity. He is only able to state name and but is very pleasant social and cooperative with meds taken whole. No behaviors this shift.
[2019-06-03] MEDS: LEVOTHYROXINE 50 MCG TABLET PO SCH (06:01)
[2019-06-03 06:02] VITALS: BP 146/60
[2019-06-03] MEDS: ASPIRIN ENTERIC COATED 81 MG TABLET.DR. PO SCH (07:27)
[2019-06-03] MEDS: DOCUSATE SODIUM 100 MG CAPSULE PO SCH (07:27)
[2019-06-03] MEDS: METOPROLOL TART IMMED RELEASE 25 MG TABLET PO SCH ×2 (07:27→20:12)
[2019-06-03] MEDS: SERTRALINE 50 MG TABLET. PO SCH (07:28)
[2019-06-03] MEDS: CLOBETASOL EMOLLIENT 0.05% TOPICAL CREAM 15GM TUBE. TP SCH ×2 (07:29→20:13)
[2019-06-03] MEDS: ACETAMINOPHEN 325 MG TABLET PO PRN (13:47)
--- NOTE | 2019-06-03 14:39 | NUR ---
NURSING NOTE PT WAS IN DINNING ROOM THIS AM UPON MEDICATION ADMINISTRATION AND IN BED ROOM DURING ASSESSMENT. PT WAS A&O TO SELF. PT WAS NOT ABLE TO TELL ME THE YEAR. PT HAS TROUBLE WITH HIS RIGHT KNEE AT TIMES WHEN AMBULATING. PT GIVEN TYLENOL THIS AFTERNOON FOR KNEE PAIN. PT HAS BEEN CALM AND COOPERATIVE THUS FAR. PT HAS BEEN IN DAY ROOM SNOOZING OFF AND ON AND INTERACTIVE WITH STAFF AND OTHER PATIENTS. WILL CONTINUE TO MONITOR. KENROY AMBRIZ.
[2019-06-03] MEDS: SIMVASTATIN 40 MG TABLET. PO SCH (15:39)
[2019-06-03 15:51] VITALS: BP 156/83
[2019-06-03] MEDS: QUEtiapine 50 MG TABLET. PO SCH (20:12)
[2019-06-03] MEDS: MIRTAZAPINE 7.5 MG TABLET. PO SCH (20:12)
[2019-06-03] MEDS: DONEPEZIL HCL 10 MG TABLET PO SCH (20:13)
--- NOTE | 2019-06-03 21:59 | PDOC ---
Exam Note: Alexandr Note: Please also refer to the separate dictated note~for this date of service dictated separately.~Patient seen individually. Discussed the patient with Nursing staff reviewed the chart.~Reviewed interim history and current functioning. Reviewed vital signs,~Labs/ Radiology~and current medications noted below. Continue current treatment with the changes noted in the dictated addendum note Assessment: Vital Signs/I&O: Vital Signs Date Time Temp Pulse Resp B/P (MAP) Pulse Ox O2 Delivery O2 Flow Rate FiO2 06/03/19 20:13 65 156/83 06/03/19 15:51 98.7 20 99 Room Air I & O 06/02/19 06/02/19 06/03/19 15:00 23:00 07:00 Intake Total 600 ml 120 ml 240 ml Balance 600 ml 120 ml 240 ml Current Medications: I have reviewed the current psychotropics carefully including drug interactions. Risk benefit ratio favors no change other than as noted in my dictated progress note. Diagnosis: Problems: (1) Major neurocognitive disorder, due to vascular disease, with behavioral disturbance, mild (2) Anxiety disorder (3) Impulse control disorder (4) Dementia, vascular, with depression (5) Dementia, vascular, with delusions (6) Dementia in Alzheimer's disease with depression (7) Dementia in Alzheimer's disease with delusions MARY MADRIGAL MD Jun 03, 2019 21:59
--- NOTE | 2019-06-04 03:24 | PN ---
DATE: 06/02/2019 PSYCHIATRIC PROGRESS NOTE This late entry 06/02/2019 covers the elements not covered in my initial note. SUBJECTIVE: I met with the patient in the evening of 06/02/2019. The patient slept 5-3/4 hours previous night. He did well at night, done better during the day on 06/02/2019. He remains confused. REVIEW OF SYSTEMS: No CV, , pulmonary, eye, ENT system symptoms on review. Reliability poor. MENTAL STATUS EXAM: Oriented to himself. Insight, judgment, recent and remote memory, attention, concentration and fund of knowledge are poor, consistent with his diagnosis mentioned in my initial note. PLAN: No change from initial note. MAN Sulaiman MADRIGAL MD DR: AURE/kimberly JOB#: [id number] / [id number]
[2019-06-04] MEDS: LEVOTHYROXINE 50 MCG TABLET PO SCH (05:35)
[2019-06-04 05:51] VITALS: BP 167/71
[2019-06-04] MEDS: SIMVASTATIN 40 MG TABLET. PO SCH (08:04)
[2019-06-04] MEDS: METOPROLOL TART IMMED RELEASE 25 MG TABLET PO SCH ×2 (08:04→20:07)
[2019-06-04] MEDS: ASPIRIN ENTERIC COATED 81 MG TABLET.DR. PO SCH (08:04)
[2019-06-04] MEDS: SERTRALINE 50 MG TABLET. PO SCH (08:04)
[2019-06-04] MEDS: DOCUSATE SODIUM 100 MG CAPSULE PO SCH (08:04)
[2019-06-04] MEDS: CLOBETASOL EMOLLIENT 0.05% TOPICAL CREAM 15GM TUBE. TP SCH ×2 (08:16→20:07)
--- NOTE | 2019-06-04 11:29 | NUR ---
Patient was in the dining room eating breakfast during morning rounding. Took medications, allowed for morning assessment. Patient did a good job with OT this morning. PRN muscle relief given @1036. Patient mentioned some pain in both his knees and shoulders. No agitation noted, will continue to monitor.
--- NOTE | 2019-06-04 13:54 | NUR ---
WEEKLY ACTIVITY THERAPY NOTE Date of Admission: 05/26/2019 Date of AT Assessment: 05/29/2019 Goal aimed: to increase leisure engagement Initial Goal: Pt. will participate in three Activity Therapy groups per week. Weekly progress towards goal: achieved, 5/3 Group participation level: moderate to full Weekly highlights: danced, singing, smiling to music on Sunday, enjoyed making play-dough on Sunday Behaviors observed: polite, enjoyable, social, sleeping often Plan: no change to goal Beneficial adaptations: direct prompting, extra processing time
[2019-06-04 15:51] VITALS: BP 132/77
--- NOTE | 2019-06-04 16:22 | NUR ---
WEEKLY NOTE: Pt is eating 100% and sleeping 7 hours on average. Pt is confused and at times becomes tearful but is redirectable. Pt attends group and minimally participates. Pt is on Zoloft 50mg for 3 days then increase to 75mg. Pt may look at respite at the time of discharge due to her starting physically therapy for her hip. Pt is compliant with all cares and does not have any trouble.
[2019-06-04] MEDS: DONEPEZIL HCL 10 MG TABLET PO SCH (20:07)
[2019-06-04] MEDS: QUEtiapine 50 MG TABLET. PO SCH (20:07)
[2019-06-04] MEDS: MIRTAZAPINE 7.5 MG TABLET. PO SCH (20:07)
--- NOTE | 2019-06-04 22:02 | PDOC ---
Exam Note: Alexandr Note: Please also refer to the separate dictated note~for this date of service dictated separately.~Patient seen individually. Discussed the patient with Nursing staff reviewed the chart.~Reviewed interim history and current functioning. Reviewed vital signs,~Labs/ Radiology~and current medications noted below. Continue current treatment with the changes noted in the dictated addendum note Assessment: Vital Signs/I&O: Vital Signs Date Time Temp Pulse Resp B/P (MAP) Pulse Ox O2 Delivery O2 Flow Rate FiO2 06/04/19 20:08 70 132/77 06/04/19 15:51 98.6 18 96 06/03/19 15:51 Room Air I & O 06/03/19 06/03/19 06/04/19 15:00 23:00 07:00 Intake Total 840 ml 480 ml 240 ml Balance 840 ml 480 ml 240 ml Current Medications: I have reviewed the current psychotropics carefully including drug interactions. Risk benefit ratio favors no change other than as noted in my dictated progress note. Diagnosis: Problems: (1) Major neurocognitive disorder, due to vascular disease, with behavioral disturbance, mild (2) Anxiety disorder (3) Impulse control disorder (4) Dementia, vascular, with depression (5) Dementia, vascular, with delusions (6) Dementia in Alzheimer's disease with depression (7) Dementia in Alzheimer's disease with delusions MARY MADRIGAL MD Jun 04, 2019 22:02
--- NOTE | 2019-06-04 22:31 | PN ---
DATE: 06/03/2019 PSYCHIATRIC PROGRESS NOTE This late entry 06/03/2019 covers elements not covered in my initial note. SUBJECTIVE: I met with the patient evening of 06/03/2019. Per KENROY Cox, the patient slept 7-1/4 hours previous night. He has been confused, but very cooperative. He is pleasant, smiling, not aggressive. REVIEW OF SYSTEMS: No CV, , PULMONARY, EYE, ENT system symptoms on review. Reliability poor. MENTAL STATUS EXAM: Oriented to himself. Insight, judgment, recent and remote memory, attention, concentration, fund of knowledge poor, consistent with his diagnosis mentioned in my initial note. PLAN: No change from initial note. MAN Sulaiman MADRIGAL MD DR: AURE/kimberly JOB#: [id number] / [id number]
[2019-06-05] MEDS: LEVOTHYROXINE 50 MCG TABLET PO SCH (05:25)
[2019-06-05 06:02] VITALS: BP 152/64
[2019-06-05] MEDS: ASPIRIN ENTERIC COATED 81 MG TABLET.DR. PO SCH (08:08)
[2019-06-05] MEDS: METOPROLOL TART IMMED RELEASE 25 MG TABLET PO SCH ×2 (08:08→20:06)
[2019-06-05] MEDS: DOCUSATE SODIUM 100 MG CAPSULE PO SCH (08:08)
[2019-06-05] MEDS: SERTRALINE 50 MG TABLET. PO SCH (08:11)
[2019-06-05] MEDS: CLOBETASOL EMOLLIENT 0.05% TOPICAL CREAM 15GM TUBE. TP SCH ×2 (08:11→20:07)
[2019-06-05] MEDS ORDERED: METHYL SALICYLATE/MENTHOL TOPICAL OINTMENT 57GM TUBE. TP SCH (09:00)
[2019-06-05] MEDS: ACETAMINOPHEN 325 MG TABLET PO PRN (10:07)
--- NOTE | 2019-06-05 16:33 | NUR ---
No agitation, no aggression, no hallucinations or delusions. Pt is compliant with cares, medications, and assessment. Pt is calm, cooperative.
[2019-06-05 16:45] VITALS: BP 155/64
--- NOTE | 2019-06-05 17:47 | NUR ---
SW contacted pt to discuss updates on pt and to discuss how pt is doing. Pt reports thinking about everything and is trying to change some things at home so that there are no potential episodes. Pt reports that she is doing physical therapy and getting some help with fluid retention on his legs due to her hip surgery. Pt is not sure about pt coming home, as much as she would like for that to happen, she fears that physically she may not be able to care for him. SW will check into respite options here in town and look at discharging pt towards the end of next week.
[2019-06-05] MEDS: SIMVASTATIN 40 MG TABLET. PO SCH (18:06)
[2019-06-05] MEDS: QUEtiapine 50 MG TABLET. PO SCH (20:07)
[2019-06-05] MEDS: DONEPEZIL HCL 10 MG TABLET PO SCH (20:07)
[2019-06-05] MEDS: MIRTAZAPINE 7.5 MG TABLET. PO SCH (20:07)
--- NOTE | 2019-06-05 21:42 | PDOC ---
Exam Note: Alexandr Note: Please also refer to the separate dictated note~for this date of service dictated separately.~Patient seen individually. Discussed the patient with Nursing staff reviewed the chart.~Reviewed interim history and current functioning. Reviewed vital signs,~Labs/ Radiology~and current medications noted below. Continue current treatment with the changes noted in the dictated addendum note Assessment: Vital Signs/I&O: Vital Signs Date Time Temp Pulse Resp B/P (MAP) Pulse Ox O2 Delivery O2 Flow Rate FiO2 06/05/19 20:07 58 155/64 06/05/19 16:45 98.4 18 97 06/03/19 15:51 Room Air I & O 06/04/19 06/04/19 06/05/19 14:59 22:59 06:59 Intake Total 720 ml 240 ml 240 ml Balance 720 ml 240 ml 240 ml Current Medications: Meds: Current Medications Medications (Trade) Dose Ordered Sig/[place] Route PRN Reason Start Time Stop Time Status Last Admin Dose Admin Sertraline HCl (Zoloft) 75 mg DAILY PO 06/05/19 09:00 06/05/19 08:12 Multi-Ingredient Ointment (Analgesic [place]) 1 layo DAILY TP 06/05/19 09:00 06/05/19 08:12 I have reviewed the current psychotropics carefully including drug interactions. Risk benefit ratio favors no change other than as noted in my dictated progress note. Diagnosis: Problems: (1) Major neurocognitive disorder, due to vascular disease, with behavioral disturbance, mild (2) CHF (congestive heart failure) (3) Chest pain (4) Anxiety disorder (5) Impulse control disorder (6) Dementia, vascular, with depression (7) Dementia, vascular, with delusions (8) Dementia in Alzheimer's disease with depression (9) Dementia in Alzheimer's disease with delusions MARY MADRIGAL MD Jun 05, 2019 21:42
--- NOTE | 2019-06-05 23:45 | NUR ---
Pt located in dayroom this evening. Pt calm and interactive. Pt questioned the amount of pills he had to take, but was compliant. Pleasantly confused.
[2019-06-06] MEDS: LEVOTHYROXINE 50 MCG TABLET PO SCH (05:12)
[2019-06-06 05:54] VITALS: BP 164/60
[2019-06-06] MEDS: ASPIRIN ENTERIC COATED 81 MG TABLET.DR. PO SCH (08:00)
[2019-06-06] MEDS: CLOBETASOL EMOLLIENT 0.05% TOPICAL CREAM 15GM TUBE. TP SCH ×2 (08:01→19:36)
[2019-06-06] MEDS: METOPROLOL TART IMMED RELEASE 25 MG TABLET PO SCH ×2 (08:01→19:36)
[2019-06-06] MEDS: SERTRALINE 50 MG TABLET. PO SCH (08:01)
[2019-06-06] MEDS: DOCUSATE SODIUM 100 MG CAPSULE PO SCH (08:01)
[2019-06-06] MEDS: LIDOCAINE (700MG/PATCH) PATCH. TD SCH (09:00)
--- NOTE | 2019-06-06 11:15 | NUR ---
Patient was in the dining room during morning rounding, took medications, allowed for morning assessment. Patient was visiting and joking with the nurse, no agitation noted. Will continue to monitor.
[2019-06-06] MEDS: ACETAMINOPHEN 325 MG TABLET PO PRN (11:54)
--- NOTE | 2019-06-06 12:30 | NUR ---
Patient was working with pt and ot this morning and mentioned being in some slight pain. PRN tylenol given @1154. Patient is now eating lunch, will continue to monitor.
[2019-06-06 17:06] VITALS: BP 119/67
[2019-06-06] MEDS: SIMVASTATIN 40 MG TABLET. PO SCH (17:16)
[2019-06-06] MEDS: DONEPEZIL HCL 10 MG TABLET PO SCH (19:35)
[2019-06-06] MEDS: MIRTAZAPINE 7.5 MG TABLET. PO SCH (19:36)
[2019-06-06] MEDS: QUEtiapine 50 MG TABLET. PO SCH (19:36)
--- NOTE | 2019-06-06 22:03 | PDOC ---
Exam Note: Alexandr Note: Please also refer to the separate dictated note~for this date of service dictated separately.~Patient seen individually. Discussed the patient with Nursing staff reviewed the chart.~Reviewed interim history and current functioning. Reviewed vital signs,~Labs/ Radiology~and current medications noted below. Continue current treatment with the changes noted in the dictated addendum note Assessment: Vital Signs/I&O: Vital Signs Date Time Temp Pulse Resp B/P (MAP) Pulse Ox O2 Delivery O2 Flow Rate FiO2 06/06/19 19:36 64 119/67 06/06/19 17:06 98.5 16 96 06/03/19 15:51 Room Air I & O 06/05/19 06/05/19 06/06/19 15:00 23:00 07:00 Intake Total 720 ml 240 ml 120 ml Balance 720 ml 240 ml 120 ml Current Medications: Meds: Current Medications Medications (Trade) Dose Ordered Sig/[place] Route PRN Reason Start Time Stop Time Status Last Admin Dose Admin Lidocaine (Lidoderm) 2 patch DAILY TD 06/06/19 09:00 06/06/19 09:18 I have reviewed the current psychotropics carefully including drug interactions. Risk benefit ratio favors no change other than as noted in my dictated progress note. Diagnosis: Problems: (1) Major neurocognitive disorder, due to vascular disease, with behavioral disturbance, mild (2) Anxiety disorder (3) Dementia, vascular, with depression (4) Impulse control disorder (5) Dementia, vascular, with delusions (6) Dementia in Alzheimer's disease with depression (7) Dementia in Alzheimer's disease with delusions MARY MADRIGAL MD Jun 06, 2019 22:03
--- NOTE | 2019-06-06 23:47 | NUR ---
Nursing Note Pt pleasant and cooperative, no agitation, takes meds willingly in day room social.
[2019-06-07] MEDS: LEVOTHYROXINE 50 MCG TABLET PO SCH (04:54)
[2019-06-07 05:38] VITALS: BP 176/77
[2019-06-07 07:22] LABS: ALBUMIN 2.8 g/dL (3.4-5.0); ALBUMIN/GLOBULIN RATIO 0.8 (1.0-1.7); CALCIUM 8.7 mg/dL (8.5-10.1); GFR 70.5; TOTAL BILIRUBIN 0.3 mg/dL (0.2-1.0); TOTAL PROTEIN 6.4 g/dL (6.4-8.2)
[2019-06-07 07:36] LABS: BASO # 0.1 x10^3/uL (0.0-0.2); BASO % 1 % (0-3); EOS # 0.8 x10^3/uL (0.0-0.7); EOS % 10 % (0-3); HEMATOCRIT 31.5 % (39.0-53.0); HEMOGLOBIN 10.5 g/dL (13.0-17.5); LYMPH % 14 % (24-48); MEAN CORPUSCULAR HEMOGLOBIN 29 pg (25-35); MEAN CORPUSCULAR HGB CONC 33 g/dL (31-37); MEAN CORPUSCULAR VOLUME 86 fL (79-100); MONO # 0.5 x10^3/uL (0.0-1.1); MONO % 6 % (0-9); NEUT # 5.3 x10^3uL (1.8-7.7); NEUT % 69 % (31-73); PLATELET COUNT 352 x10^3/uL (140-400); RED BLOOD COUNT 3.67 x10^6/uL (4.30-5.70); RED CELL DISTRIBUTION WIDTH 13.7 % (11.5-14.5); WHITE BLOOD COUNT 7.7 x10^3/uL (4.0-11.0)
--- NOTE | 2019-06-07 09:12 | PN ---
DATE: 06/04/2019 PSYCHIATRIC PROGRESS NOTE This late entry 06/04/2019 covers elements not covered in my initial note. SUBJECTIVE: I met with the patient evening of 06/04/2019 and staffed at treatment team meeting with the entire team earlier in the day. The patient is sleeping about 7 hours. Appetite 100%. He remains confused, calm, cooperative with assessments. Tearful at times. Family may be looking at respite care, possibly at [place] or [facility]. REVIEW OF SYSTEMS: No CV, , pulmonary, eye, ENT system symptoms on review. Reliability poor. MENTAL STATUS EXAM: Oriented to himself. Insight, judgment, recent and remote memory, attention, concentration, fund of knowledge poor, consistent with his diagnosis. LABORATORY DATA: Reviewed. IMPRESSION: Unchanged from initial note. PLAN: Increase Zoloft from 50 mg a day to 75 mg a day after he has been on 50 mg for 3 days. Continue rest unchanged. MARY MADRIGAL MD DR: AURE/kimberly JOB#: [id number] / [id number]
[2019-06-07] MEDS: DOCUSATE SODIUM 100 MG CAPSULE PO SCH (10:28)
[2019-06-07] MEDS: ASPIRIN ENTERIC COATED 81 MG TABLET.DR. PO SCH (10:28)
[2019-06-07] MEDS: SERTRALINE 50 MG TABLET. PO SCH (10:29)
[2019-06-07] MEDS: METOPROLOL TART IMMED RELEASE 25 MG TABLET PO SCH ×2 (10:29→20:16)
[2019-06-07] MEDS: CLOBETASOL EMOLLIENT 0.05% TOPICAL CREAM 15GM TUBE. TP SCH ×2 (10:30→20:17)
[2019-06-07] MEDS: LIDOCAINE (700MG/PATCH) PATCH. TD SCH (10:30)
--- NOTE | 2019-06-07 11:52 | NUR ---
Pt is compliant with cares, medications, and assessment. No agitation, no aggression, no hallucinations or delusions. Pt is calm, cooperative, compliant, and confused.
[2019-06-07] MEDS: SIMVASTATIN 40 MG TABLET. PO SCH (15:47)
[2019-06-07 15:56] VITALS: BP 158/68
--- NOTE | 2019-06-07 19:48 | PN ---
DATE: 06/05/2019 PSYCHIATRIC PROGRESS NOTE This late entry 06/05/2019 covers elements not covered in my initial note. SUBJECTIVE: I met with the patient evening of 06/05/2019. The patient slept 7 hours previous night. He has been confused, but very pleasant, cooperative, compliant with medications. REVIEW OF SYSTEMS: No CV, , pulmonary, eye, ENT system symptoms on review. Reliability poor. I met with him in his room. MENTAL STATUS EXAM: Oriented to himself. Insight, judgment, recent and remote memory, attention, concentration, fund of knowledge poor, consistent with his diagnosis mentioned in my initial note. PLAN: No change from initial note. MAN Sulaiman MADRIGAL MD DR: AURE/kimberly JOB#: [id number] / [id number]
[2019-06-07] MEDS: MIRTAZAPINE 7.5 MG TABLET. PO SCH (20:16)
[2019-06-07] MEDS: QUEtiapine 50 MG TABLET. PO SCH (20:16)
[2019-06-07] MEDS: DONEPEZIL HCL 10 MG TABLET PO SCH (20:16)
--- NOTE | 2019-06-07 23:03 | PDOC ---
Exam Note: Alexandr Note: Please also refer to the separate dictated note~for this date of service dictated separately.~Patient seen individually. Discussed the patient with Nursing staff reviewed the chart.~Reviewed interim history and current functioning. Reviewed vital signs,~Labs/ Radiology~and current medications noted below. Continue current treatment with the changes noted in the dictated addendum note Assessment: Vital Signs/I&O: Vital Signs Date Time Temp Pulse Resp B/P (MAP) Pulse Ox O2 Delivery O2 Flow Rate FiO2 06/07/19 20:17 58 158/68 06/07/19 15:56 97.6 16 99 06/03/19 15:51 Room Air I & O 06/06/19 06/06/19 06/07/19 15:00 23:00 07:00 Intake Total 360 ml 240 ml 240 ml Balance 360 ml 240 ml 240 ml Labs: Laboratory Tests Test 06/07/19 06:32 White Blood Count 7.7 x10^3/uL (4.0-11.0) Red Blood Count 3.67 x10^6/uL (4.30-5.70) L Hemoglobin 10.5 g/dL (13.0-17.5) L Hematocrit 31.5 % (39.0-53.0) L Mean Corpuscular Volume 86 fL (79-100) Mean Corpuscular Hemoglobin 29 pg (25-35) Mean Corpuscular Hemoglobin Concent 33 g/dL (31-37) Red Cell Distribution Width 13.7 % (11.5-14.5) Platelet Count 352 x10^3/uL (140-400) Neutrophils (%) (Auto) 69 % (31-73) Lymphocytes (%) (Auto) 14 % (24-48) L Monocytes (%) (Auto) 6 % (0-9) Eosinophils (%) (Auto) 10 % (0-3) H Basophils (%) (Auto) 1 % (0-3) Neutrophils # (Auto) 5.3 x10^3uL (1.8-7.7) Lymphocytes # (Auto) 1.0 x10^3/uL (1.0-4.8) Monocytes # (Auto) 0.5 x10^3/uL (0.0-1.1) Eosinophils # (Auto) 0.8 x10^3/uL (0.0-0.7) H Basophils # (Auto) 0.1 x10^3/uL (0.0-0.2) Sodium Level 134 mmol/L (136-145) L Potassium Level 4.0 mmol/L (3.5-5.1) Chloride Level 99 mmol/L (98-107) Carbon Dioxide Level 26 mmol/L (21-32) Anion Gap 9 (6-14) Blood Urea Nitrogen 21 mg/dL (8-26) Creatinine 1.0 mg/dL (0.7-1.3) Estimated GFR (Cockcroft-Gault) 70.5 BUN/Creatinine Ratio 21 (6-20) H Glucose Level 90 mg/dL (70-99) Calcium Level 8.7 mg/dL (8.5-10.1) Total Bilirubin 0.3 mg/dL (0.2-1.0) Aspartate Amino Transferase (AST) 24 U/L (15-37) Alanine Aminotransferase (ALT) 17 U/L (16-63) Alkaline Phosphatase 114 U/L (46-116) Total Protein 6.4 g/dL (6.4-8.2) Albumin 2.8 g/dL (3.4-5.0) L Albumin/Globulin Ratio 0.8 (1.0-1.7) L Current Medications: I have reviewed the current psychotropics carefully including drug interactions. Risk benefit ratio favors no change other than as noted in my dictated progress note. Diagnosis: Problems: (1) Major neurocognitive disorder, due to vascular disease, with behavioral disturbance, mild (2) Anxiety disorder (3) Impulse control disorder (4) Dementia, vascular, with depression (5) Dementia, vascular, with delusions (6) Dementia in Alzheimer's disease with depression (7) Dementia in Alzheimer's disease with delusions MARY MADRIGAL MD Jun 07, 2019 23:03
--- NOTE | 2019-06-07 23:22 | NUR ---
Pt located in dayroom this evening, sitting calmly and interacting with peers. Questioned the amount of pills he was given, but was compliant.
--- NOTE | 2019-06-08 01:46 | PN ---
DATE: 06/06/2019 PSYCHIATRIC PROGRESS NOTE This late entry 06/06/2019 covers the elements not covered in my initial note. SUBJECTIVE: I met with the patient in the evening of 06/06/2019. The patient slept 7-1/4 hours previous night. Per nursing report from KENROY Song, the patient has done better during the day. He remains confused, but quite redirectable, less anxious. REVIEW OF SYSTEMS: No CV, , pulmonary, eye, ENT system symptoms on review. Reliability is poor. I met with him in his room. MENTAL STATUS EXAM: Oriented to himself. Insight, judgment, recent and remote memory, attention, concentration, fund of knowledge poor, consistent with his diagnosis mentioned in my initial note. PLAN: No change from initial note. MAN Sulaiman MADRIGAL MD DR: AURE/kimberly JOB#: [id number] / [id number]
[2019-06-08] MEDS: LEVOTHYROXINE 50 MCG TABLET PO SCH (05:10)
[2019-06-08] MEDS: ACETAMINOPHEN 325 MG TABLET PO PRN (05:11)
[2019-06-08 06:21] VITALS: BP 185/68
[2019-06-08] MEDS: METOPROLOL TART IMMED RELEASE 25 MG TABLET PO SCH ×2 (08:39→19:54)
[2019-06-08] MEDS: SERTRALINE 50 MG TABLET. PO SCH (08:39)
[2019-06-08] MEDS: LIDOCAINE (700MG/PATCH) PATCH. TD SCH (08:40)
[2019-06-08] MEDS: DOCUSATE SODIUM 100 MG CAPSULE PO SCH (08:40)
[2019-06-08] MEDS: ASPIRIN ENTERIC COATED 81 MG TABLET.DR. PO SCH (08:40)
[2019-06-08] MEDS: CLOBETASOL EMOLLIENT 0.05% TOPICAL CREAM 15GM TUBE. TP SCH ×2 (11:01→19:54)
--- NOTE | 2019-06-08 15:17 | NUR ---
Patient in dining room during assumption of care. Pleasant and cooperative. Patient took medications without difficulty, cooperative with assessment. Interactive during assessment. No behaviors noted at this time. Will continue to monitor.
[2019-06-08 15:56] VITALS: BP 167/50
[2019-06-08] MEDS: SIMVASTATIN 40 MG TABLET. PO SCH (16:56)
[2019-06-08] MEDS: QUEtiapine 50 MG TABLET. PO SCH (19:54)
[2019-06-08] MEDS: MIRTAZAPINE 7.5 MG TABLET. PO SCH (19:54)
[2019-06-08] MEDS: DONEPEZIL HCL 10 MG TABLET PO SCH (19:54)
--- NOTE | 2019-06-08 21:39 | PDOC ---
Exam Note: Alexandr Note: Please also refer to the separate dictated note~for this date of service dictated separately.~Patient seen individually. Discussed the patient with Nursing staff reviewed the chart.~Reviewed interim history and current functioning. Reviewed vital signs,~Labs/ Radiology~and current medications noted below. Continue current treatment with the changes noted in the dictated addendum note Assessment: Vital Signs/I&O: Vital Signs Date Time Temp Pulse Resp B/P (MAP) Pulse Ox O2 Delivery O2 Flow Rate FiO2 06/08/19 19:55 63 167/50 06/08/19 15:56 98.1 20 97 06/03/19 15:51 Room Air I & O 06/07/19 06/07/19 06/08/19 15:00 23:00 07:00 Intake Total 840 ml 480 ml Balance 840 ml 480 ml Current Medications: I have reviewed the current psychotropics carefully including drug interactions. Risk benefit ratio favors no change other than as noted in my dictated progress note. Diagnosis: Problems: (1) Major neurocognitive disorder, due to vascular disease, with behavioral disturbance, mild (2) Anxiety disorder (3) Impulse control disorder (4) Dementia, vascular, with depression (5) Dementia, vascular, with delusions (6) Dementia in Alzheimer's disease with depression (7) Dementia in Alzheimer's disease with delusions MARY MADRIGAL MD Jun 08, 2019 21:38
--- NOTE | 2019-06-08 23:46 | NUR ---
Pt sitting calmly in dayroom all evening watching movie. Compliant with whole medications. Pleasantly confused.
[2019-06-09] MEDS: LEVOTHYROXINE 50 MCG TABLET PO SCH (05:23)
[2019-06-09 06:09] VITALS: BP 175/76
[2019-06-09] MEDS: SERTRALINE 50 MG TABLET. PO SCH (08:19)
[2019-06-09] MEDS: DOCUSATE SODIUM 100 MG CAPSULE PO SCH (08:19)
[2019-06-09] MEDS: ASPIRIN ENTERIC COATED 81 MG TABLET.DR. PO SCH (08:19)
[2019-06-09] MEDS: METOPROLOL TART IMMED RELEASE 25 MG TABLET PO SCH ×2 (08:20→20:32)
[2019-06-09] MEDS: LIDOCAINE (700MG/PATCH) PATCH. TD SCH (08:20)
[2019-06-09] MEDS: CLOBETASOL EMOLLIENT 0.05% TOPICAL CREAM 15GM TUBE. TP SCH ×2 (08:33→20:33)
[2019-06-09 16:07] VITALS: BP 154/56
[2019-06-09] MEDS: SIMVASTATIN 40 MG TABLET. PO SCH (16:50)
--- NOTE | 2019-06-09 18:40 | NUR ---
Pt is compliant with cares, medications, and assessment. No agitation, no aggression, no hallucinations or delusions. Pt is calm, cooperative, compliant, and confused.
[2019-06-09] MEDS: MIRTAZAPINE 7.5 MG TABLET. PO SCH (20:32)
[2019-06-09] MEDS: DONEPEZIL HCL 10 MG TABLET PO SCH (20:32)
[2019-06-09] MEDS: QUEtiapine 50 MG TABLET. PO SCH (20:33)
--- NOTE | 2019-06-09 21:41 | PDOC ---
Exam Note: Alexandr Note: Please also refer to the separate dictated note~for this date of service dictated separately.~Patient seen individually. Discussed the patient with Nursing staff reviewed the chart.~Reviewed interim history and current functioning. Reviewed vital signs,~Labs/ Radiology~and current medications noted below. Continue current treatment with the changes noted in the dictated addendum note Assessment: Vital Signs/I&O: Vital Signs Date Time Temp Pulse Resp B/P (MAP) Pulse Ox O2 Delivery O2 Flow Rate FiO2 06/09/19 20:33 75 154/56 06/09/19 16:07 98.3 18 96 06/03/19 15:51 Room Air I & O 06/08/19 06/08/19 06/09/19 15:00 23:00 07:00 Intake Total 480 ml 240 ml 240 ml Balance 480 ml 240 ml 240 ml Current Medications: I have reviewed the current psychotropics carefully including drug interactions. Risk benefit ratio favors no change other than as noted in my dictated progress note. Diagnosis: Problems: (1) Major neurocognitive disorder, due to vascular disease, with behavioral disturbance, mild (2) Anxiety disorder (3) Impulse control disorder (4) Dementia, vascular, with depression (5) Dementia, vascular, with delusions (6) Dementia in Alzheimer's disease with depression (7) Dementia in Alzheimer's disease with delusions MARY MADRIGAL MD Jun 09, 2019 21:41
--- NOTE | 2019-06-10 01:02 | NUR ---
Nursing Note the patient was located in his room for his medication and assessment. the patient took his medication whole and was appropriate during interactions with this nurse and peers. The patient is currently sleeping in his room.
--- NOTE | 2019-06-10 03:11 | PN ---
DATE: 06/07/2019 PSYCHIATRIC PROGRESS NOTE This late entry 06/07/2019 covers elements not covered in my initial note. SUBJECTIVE: I met with the patient in the evening of 06/07/2019. The patient slept 6-3/4 hours previous night. He has been confused, calm, cooperative with medications and assessment. REVIEW OF SYSTEMS: No CV, , pulmonary, eye, ENT system symptoms on review. Reliability poor. MENTAL STATUS EXAM: Oriented to himself. Insight, judgment, recent and remote memory, attention, concentration, fund of knowledge poor, consistent with his diagnosis mentioned in my initial note. PLAN: No change from initial note. MAN Sulaiman MADRIGAL MD DR: AURE/kimberly JOB#: [id number] / [id number]
--- NOTE | 2019-06-10 04:05 | PN ---
DATE: 06/08/2019 PSYCHIATRIC PROGRESS NOTE This late entry 06/08/2019 covers the elements not covered in my initial note. SUBJECTIVE: I met with the patient in the evening. The patient slept 6-3/4 hours previous night. The patient remains confused, otherwise pleasant, cooperative, redirectable. REVIEW OF SYSTEMS: No CV, , pulmonary, eye, ENT system symptoms on review. Reliability is poor. MENTAL STATUS EXAM: Oriented to himself. Insight, judgment, recent and remote memory, attention, concentration, fund of knowledge poor, consistent with his diagnosis mentioned in my initial note. PLAN: No change from initial note. MAN Sulaiman MADRIGAL MD DR: AURE/kimberly JOB#: [id number] / [id number]
[2019-06-10] MEDS: LEVOTHYROXINE 50 MCG TABLET PO SCH (05:55)
[2019-06-10 06:25] VITALS: BP 171/98
[2019-06-10] MEDS: ASPIRIN ENTERIC COATED 81 MG TABLET.DR. PO SCH (08:35)
[2019-06-10] MEDS: METOPROLOL TART IMMED RELEASE 25 MG TABLET PO SCH ×2 (08:35→20:50)
[2019-06-10] MEDS: SERTRALINE 50 MG TABLET. PO SCH (08:35)
[2019-06-10] MEDS: DOCUSATE SODIUM 100 MG CAPSULE PO SCH (08:35)
[2019-06-10] MEDS: LIDOCAINE (700MG/PATCH) PATCH. TD SCH (08:36)
[2019-06-10] MEDS: CLOBETASOL EMOLLIENT 0.05% TOPICAL CREAM 15GM TUBE. TP SCH ×2 (08:37→20:50)
--- NOTE | 2019-06-10 10:00 | NUR ---
Nursing Note: Pt calm, cooperative, med compliant taken whole, reported pain in shoulders and knees, Lidocaine patches places on all. Alert to self and situation, interactive w/ peers and staff.
[2019-06-10] MEDS: SIMVASTATIN 40 MG TABLET. PO SCH (15:40)
[2019-06-10 16:58] VITALS: BP 165/71
[2019-06-10] MEDS: QUEtiapine 50 MG TABLET. PO SCH (20:49)
[2019-06-10] MEDS: DONEPEZIL HCL 10 MG TABLET PO SCH (20:49)
[2019-06-10] MEDS: MIRTAZAPINE 7.5 MG TABLET. PO SCH (20:50)
--- NOTE | 2019-06-10 22:05 | PDOC ---
Exam Note: Alexandr Note: Please also refer to the separate dictated note~for this date of service dictated separately.~Patient seen individually. Discussed the patient with Nursing staff reviewed the chart.~Reviewed interim history and current functioning. Reviewed vital signs,~Labs/ Radiology~and current medications noted below. Continue current treatment with the changes noted in the dictated addendum note Assessment: Vital Signs/I&O: Vital Signs Date Time Temp Pulse Resp B/P (MAP) Pulse Ox O2 Delivery O2 Flow Rate FiO2 06/10/19 20:50 59 165/71 06/10/19 16:58 98.1 16 97 I & O 06/09/19 06/09/19 06/10/19 14:59 22:59 06:59 Intake Total 840 ml 480 ml 120 ml Balance 840 ml 480 ml 120 ml Current Medications: I have reviewed the current psychotropics carefully including drug interactions. Risk benefit ratio favors no change other than as noted in my dictated progress note. Diagnosis: Problems: (1) Major neurocognitive disorder, due to vascular disease, with behavioral disturbance, mild (2) Anxiety disorder (3) Impulse control disorder (4) Dementia, vascular, with depression (5) Dementia, vascular, with delusions (6) Dementia in Alzheimer's disease with depression (7) Dementia in Alzheimer's disease with delusions MARY MADRIGAL MD Jun 10, 2019 22:05
--- NOTE | 2019-06-10 22:44 | NUR ---
Nursing Note The patient was located in the day room for his medication and assessment. The patient was compliant with his medication and took them whole. The patient was appropriate during interactions with this nurse and peers. The patient is currently sleeping in his room.
--- NOTE | 2019-06-10 23:03 | PN ---
DATE: 06/09/2019 PSYCHIATRIC PROGRESS NOTE This late entry, 06/09, covers the elements not covered in my initial note. SUBJECTIVE: I met with the patient in the evening. The patient has been appropriate, confused, redirectable, very likeable per nursing staff. REVIEW OF SYSTEMS: No CV, , pulmonary, eye, ENT systems symptoms on review. Reliability poor. MENTAL STATUS EXAM: Oriented to himself. Insight, judgment, recent and remote memory, attention, concentration, fund of knowledge poor, consistent with his diagnosis mentioned in my initial note. PLAN: No change from initial note. MAN Sulaiman MADRIGAL MD DR: AURE/kimberly JOB#: [id number] / [id number]
[2019-06-11] MEDS: LEVOTHYROXINE 50 MCG TABLET PO SCH (05:58)
[2019-06-11 06:51] VITALS: BP 159/80
--- NOTE | 2019-06-11 09:00 | NUR ---
The patient was located in the day room for his medication and assessment. Compliant with medication and took them whole. The patient was appropriate during interactions with this nurse. Patient knew what day today was but when asked if he remembers the nurse, he simply answered they met in a dance.
[2019-06-11] MEDS: LIDOCAINE (700MG/PATCH) PATCH. TD SCH (09:21)
[2019-06-11] MEDS: SERTRALINE 50 MG TABLET. PO SCH (09:21)
[2019-06-11] MEDS: DOCUSATE SODIUM 100 MG CAPSULE PO SCH (09:22)
[2019-06-11] MEDS: METOPROLOL TART IMMED RELEASE 25 MG TABLET PO SCH ×2 (09:22→20:45)
[2019-06-11] MEDS: ASPIRIN ENTERIC COATED 81 MG TABLET.DR. PO SCH (09:22)
[2019-06-11] MEDS: METHYL SALICYLATE/MENTHOL TOPICAL OINTMENT 57GM TUBE. TP PRN (09:23)
[2019-06-11] MEDS: CLOBETASOL EMOLLIENT 0.05% TOPICAL CREAM 15GM TUBE. TP SCH ×2 (09:25→20:46)
--- NOTE | 2019-06-11 10:15 | NUR ---
Patient was sitting in the day room after the social work group activity. Social work student asked pt if he would like to sit out in the patio. 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 Pt described the specific techniques for milking a cow or else the cow "will kick you clear to that chair over there." Pt appeared pleasant and alert of his surroundings. When he heard another pt shout out, this pt said, "Poor thing." SWS asked pt is he would like some water. SWS gave him a cup of water and then pt sat near the group activity.
[2019-06-11] MEDS: SIMVASTATIN 40 MG TABLET. PO SCH (16:22)
[2019-06-11 17:12] VITALS: BP 128/57
[2019-06-11] MEDS: DONEPEZIL HCL 10 MG TABLET PO SCH (20:45)
[2019-06-11] MEDS: MIRTAZAPINE 7.5 MG TABLET. PO SCH (20:45)
[2019-06-11] MEDS: QUEtiapine 50 MG TABLET. PO SCH (20:45)
--- NOTE | 2019-06-11 21:48 | PDOC ---
Exam Note: Alexandr Note: Please also refer to the separate dictated note~for this date of service dictated separately.~Patient seen individually. Discussed the patient with Nursing staff reviewed the chart.~Reviewed interim history and current functioning. Reviewed vital signs,~Labs/ Radiology~and current medications noted below. Continue current treatment with the changes noted in the dictated addendum note Assessment: Vital Signs/I&O: Vital Signs Date Time Temp Pulse Resp B/P (MAP) Pulse Ox O2 Delivery O2 Flow Rate FiO2 06/11/19 20:45 60 128/57 06/11/19 17:12 97.4 16 97 I & O 06/10/19 06/10/19 06/11/19 15:00 23:00 07:00 Intake Total 1080 ml 360 ml Balance 1080 ml 360 ml Current Medications: I have reviewed the current psychotropics carefully including drug interactions. Risk benefit ratio favors no change other than as noted in my dictated progress note. Diagnosis: Problems: (1) Major neurocognitive disorder, due to vascular disease, with behavioral disturbance, mild (2) Anxiety disorder (3) Impulse control disorder (4) Dementia, vascular, with depression (5) Dementia, vascular, with delusions (6) Dementia in Alzheimer's disease with depression (7) Dementia in Alzheimer's disease with delusions MARY MADRIGAL MD Jun 11, 2019 21:48
--- NOTE | 2019-06-12 00:36 | PN ---
DATE: 06/10/2019 This late entry 06/10/2019 covers the elements not covered in my initial note. SUBJECTIVE: I met with the patient the evening of 06/10/2019. The patient slept 6 hours previous night. He remains confused, wanders the hallways, attends groups, but not very interactive. He has not been aggressive or disruptive. REVIEW OF SYSTEMS: No CV, , pulmonary, eye, ENT system symptoms on review. Reliability poor. MENTAL STATUS EXAM: Oriented to himself. Insight, judgment, recent and remote memory, attention, concentration, fund of knowledge poor consistent with his diagnosis mentioned in my initial note. PLAN: No change from initial note. MAN Sulaiman MADRIGAL MD DR: AURE/kimberly JOB#: [id number] / [id number]
[2019-06-12] MEDS: LEVOTHYROXINE 50 MCG TABLET PO SCH (06:29)
[2019-06-12 06:34] VITALS: BP 179/83
[2019-06-12] MEDS: LIDOCAINE (700MG/PATCH) PATCH. TD SCH (07:27)
[2019-06-12] MEDS: METOPROLOL TART IMMED RELEASE 25 MG TABLET PO SCH ×2 (07:28→20:21)
[2019-06-12] MEDS: DOCUSATE SODIUM 100 MG CAPSULE PO SCH (07:29)
[2019-06-12] MEDS: ASPIRIN ENTERIC COATED 81 MG TABLET.DR. PO SCH (07:29)
[2019-06-12] MEDS: SERTRALINE 50 MG TABLET. PO SCH (07:30)
[2019-06-12] MEDS: CLOBETASOL EMOLLIENT 0.05% TOPICAL CREAM 15GM TUBE. TP SCH ×2 (08:31→20:24)
--- NOTE | 2019-06-12 10:25 | NUR ---
WEEKLY NOTE:' Pt is averaging 7 hours of sleep and eating 75-100% of meals. Pt is physically and functionally at baseline and is able to discharge STEFFEN. Pt attends groups and at times needs to be prompted to participate. Pt is medication compliant and has no concerns.
--- NOTE | 2019-06-12 10:26 | NUR ---
WEEKLY ACTIVITY THERAPY NOTE Date of Admission: 05/26/2019 Date of AT Assessment: 05/29/2019 Goal aimed: to increase leisure engagement Initial Goal: Pt. will participate in three Activity Therapy groups per week. Weekly progress towards goal: exceeded, 04/19 Group participation level: minimal to moderate Weekly highlights: dancing and clapping to music on Sunday afternoon (TV tunes) Behaviors observed: around groups often, if not engaged-sleeping, social and comfortable around others/group setting Plan: change goal to: Pt. will participate in at least one Activity Therapy group per day Beneficial adaptations: direct prompting, little extra processing time, positive response to music
--- NOTE | 2019-06-12 13:56 | NUR ---
Patient is in the day room. Appropriate and interactive with peers and staff. Calm, cooperative and compliant with medications and assessments. Denies pain or discomfort, denies SI/HI.
[2019-06-12 15:44] VITALS: BP 166/74
[2019-06-12] MEDS: SIMVASTATIN 40 MG TABLET. PO SCH (16:32)
[2019-06-12] MEDS: QUEtiapine 50 MG TABLET. PO SCH (20:20)
[2019-06-12] MEDS: MIRTAZAPINE 7.5 MG TABLET. PO SCH (20:20)
[2019-06-12] MEDS: DONEPEZIL HCL 10 MG TABLET PO SCH (20:20)
--- NOTE | 2019-06-12 21:54 | PDOC ---
Exam Note: Alexandr Note: Please also refer to the separate dictated note~for this date of service dictated separately.~Patient seen individually. Discussed the patient with Nursing staff reviewed the chart.~Reviewed interim history and current functioning. Reviewed vital signs,~Labs/ Radiology~and current medications noted below. Continue current treatment with the changes noted in the dictated addendum note Assessment: Vital Signs/I&O: Vital Signs Date Time Temp Pulse Resp B/P (MAP) Pulse Ox O2 Delivery O2 Flow Rate FiO2 06/12/19 20:21 64 150/74 06/12/19 15:44 98.8 16 97 I & O 06/11/19 06/11/19 06/12/19 15:00 23:00 07:00 Intake Total 840 ml 480 ml 240 ml Balance 840 ml 480 ml 240 ml Current Medications: I have reviewed the current psychotropics carefully including drug interactions. Risk benefit ratio favors no change other than as noted in my dictated progress note. Diagnosis: Problems: (1) Major neurocognitive disorder, due to vascular disease, with behavioral disturbance, mild (2) Anxiety disorder (3) Impulse control disorder (4) Dementia, vascular, with depression (5) Dementia, vascular, with delusions (6) Dementia in Alzheimer's disease with depression (7) Dementia in Alzheimer's disease with delusions MARY MADRIGAL MD Jun 12, 2019 21:54
--- NOTE | 2019-06-13 00:09 | NUR ---
Nursing Note: Assumed care of pt. this evening, he was sitting out in the day room. He has been calm, pleasant, and cooperative. He has been compliant with taking his HS meds whole this evening. No agitation or aggression noted at this time.
[2019-06-13 05:10] VITALS: BP 182/71
[2019-06-13] MEDS: LEVOTHYROXINE 50 MCG TABLET PO SCH (05:37)
[2019-06-13] MEDS: ASPIRIN ENTERIC COATED 81 MG TABLET.DR. PO SCH (08:37)
[2019-06-13] MEDS: DOCUSATE SODIUM 100 MG CAPSULE PO SCH (08:37)
[2019-06-13] MEDS: SERTRALINE 50 MG TABLET. PO SCH (08:37)
[2019-06-13] MEDS: LIDOCAINE (700MG/PATCH) PATCH. TD SCH (08:38)
[2019-06-13] MEDS: METOPROLOL TART IMMED RELEASE 25 MG TABLET PO SCH ×2 (08:38→20:20)
[2019-06-13] MEDS: METHYL SALICYLATE/MENTHOL TOPICAL OINTMENT 57GM TUBE. TP PRN ×2 (08:39→13:44)
[2019-06-13] MEDS: CLOBETASOL EMOLLIENT 0.05% TOPICAL CREAM 15GM TUBE. TP SCH ×2 (08:40→20:03)
[2019-06-13] MEDS: ACETAMINOPHEN 325 MG TABLET PO PRN (14:47)
[2019-06-13 16:28] VITALS: BP 143/70
[2019-06-13] MEDS: SIMVASTATIN 40 MG TABLET. PO SCH (16:41)
--- NOTE | 2019-06-13 19:24 | NUR ---
Pt was very calm and cooperative all day. He was in the dining room for his medication administration and assessment. He was compliant with taking his meds whole. He complained a couple times today about the pain in his shoulders and his knees. Pt was given PRNs which helped bring his pain level down.
[2019-06-13] MEDS: QUEtiapine 50 MG TABLET. PO SCH (20:05)
[2019-06-13] MEDS: MIRTAZAPINE 7.5 MG TABLET. PO SCH (20:05)
[2019-06-13] MEDS: DONEPEZIL HCL 10 MG TABLET PO SCH (20:07)
--- NOTE | 2019-06-13 21:45 | PDOC ---
Exam Note: Alexandr Note: Please also refer to the separate dictated note~for this date of service dictated separately.~Patient seen individually. Discussed the patient with Nursing staff reviewed the chart.~Reviewed interim history and current functioning. Reviewed vital signs,~Labs/ Radiology~and current medications noted below. Continue current treatment with the changes noted in the dictated addendum note Assessment: Vital Signs/I&O: Vital Signs Date Time Temp Pulse Resp B/P (MAP) Pulse Ox O2 Delivery O2 Flow Rate FiO2 06/13/19 20:20 65 167/55 06/13/19 16:28 98.5 16 96 I & O 06/12/19 06/12/19 06/13/19 15:00 23:00 07:00 Intake Total 1080 ml 480 ml 240 ml Balance 1080 ml 480 ml 240 ml Current Medications: I have reviewed the current psychotropics carefully including drug interactions. Risk benefit ratio favors no change other than as noted in my dictated progress note. Diagnosis: Problems: (1) Major neurocognitive disorder, due to vascular disease, with behavioral disturbance, mild (2) Anxiety disorder (3) Impulse control disorder (4) Dementia, vascular, with depression (5) Dementia, vascular, with delusions (6) Dementia in Alzheimer's disease with depression (7) Dementia in Alzheimer's disease with delusions MARY MADRIGAL MD Jun 13, 2019 21:45
--- NOTE | 2019-06-13 22:10 | PN ---
DATE: 06/11/2019 PSYCHIATRIC PROGRESS NOTE This late entry 06/11/2019 covers the elements not covered in my initial note. SUBJECTIVE: I met with the patient in the evening of 06/11/2019 per KENROY Jones, the patient has remained confused, but done reasonably well easily redirected. Slept 6-1/4 hours previous night. REVIEW OF SYSTEMS: No CV, , pulmonary, eye, ENT system symptoms on review. Reliability is poor. MENTAL STATUS EXAM: Oriented to himself. Insight, judgment, recent and remote memory, attention, concentration, fund of knowledge poor, consistent with his diagnosis mentioned in my initial note. PLAN: No change from initial note. MAN Sulaiman MADRIGAL MD DR: AURE/kimberly JOB#: [id number] / [id number]
--- NOTE | 2019-06-13 22:46 | PN ---
DATE: 06/12/2019 PSYCHIATRIC PROGRESS NOTE This late entry 06/12/2019 covers elements not covered in my initial note. SUBJECTIVE: I met with the patient in the evening of 06/12/2019 and staffed at a treatment team meeting with the entire team earlier in the day. The patient slept 4-1/2 hours, remains confused, appetite 75-100%. Discussed diagnosis, placement options including possibly assisted or back home. REVIEW OF SYSTEMS: No CV, , pulmonary, eye, ENT system symptoms on review. Reliability poor. MENTAL STATUS EXAMINATION: Oriented to himself. Insight, judgment, recent and remote memory, attention, concentration, fund of knowledge poor consistent with his diagnosis mentioned in my initial note. PLAN: No change from initial note. MAN Sulaiman MADRIGAL MD DR: AURE/kimberly JOB#: [id number] / [id number]
--- NOTE | 2019-06-13 23:25 | NUR ---
Nursing Note: Assumed care of pt. this evening, he was sitting out in the day room. He has been calm, pleasant, and cooperative. He has been compliant with taking his HS meds whole this evening. No behaviors noted at this time.
[2019-06-14 05:18] VITALS: BP 167/80
[2019-06-14] MEDS: LEVOTHYROXINE 50 MCG TABLET PO SCH (06:13)
[2019-06-14 08:29] LABS: BASO # 0.1 x10^3/uL (0.0-0.2); BASO % 1 % (0-3); EOS # 0.8 x10^3/uL (0.0-0.7); EOS % 11 % (0-3); HEMATOCRIT 36.2 % (39.0-53.0); HEMOGLOBIN 11.8 g/dL (13.0-17.5); LYMPH % 13 % (24-48); MEAN CORPUSCULAR HEMOGLOBIN 28 pg (25-35); MEAN CORPUSCULAR HGB CONC 33 g/dL (31-37); MEAN CORPUSCULAR VOLUME 87 fL (79-100); MONO # 0.5 x10^3/uL (0.0-1.1); MONO % 7 % (0-9); NEUT # 5.3 x10^3uL (1.8-7.7); NEUT % 68 % (31-73); PLATELET COUNT 366 x10^3/uL (140-400); RED BLOOD COUNT 4.19 x10^6/uL (4.30-5.70); RED CELL DISTRIBUTION WIDTH 14.4 % (11.5-14.5); WHITE BLOOD COUNT 7.7 x10^3/uL (4.0-11.0)
[2019-06-14 08:48] LABS: ALBUMIN 3.5 g/dL (3.4-5.0); ALBUMIN/GLOBULIN RATIO 0.9 (1.0-1.7); CALCIUM 9.3 mg/dL (8.5-10.1); GFR 70.5; POTASSIUM 4.3 mmol/L (3.5-5.1); TOTAL BILIRUBIN 0.4 mg/dL (0.2-1.0); TOTAL PROTEIN 7.4 g/dL (6.4-8.2)
[2019-06-14] MEDS: METOPROLOL TART IMMED RELEASE 25 MG TABLET PO SCH ×2 (09:01→21:59)
[2019-06-14] MEDS: DOCUSATE SODIUM 100 MG CAPSULE PO SCH (09:01)
[2019-06-14] MEDS: ASPIRIN ENTERIC COATED 81 MG TABLET.DR. PO SCH (09:01)
[2019-06-14] MEDS: SERTRALINE 50 MG TABLET. PO SCH (09:01)
[2019-06-14] MEDS: CLOBETASOL EMOLLIENT 0.05% TOPICAL CREAM 15GM TUBE. TP SCH ×2 (09:02→21:59)
[2019-06-14] MEDS: LIDOCAINE (700MG/PATCH) PATCH. TD SCH (09:02)
[2019-06-14] MEDS: LISINOPRIL 10 MG TABLET PO SCH (09:09)
--- NOTE | 2019-06-14 11:02 | NUR ---
Pt is compliant with cares, medications, and assessment. No agitation, no aggression, no hallucinations or delusions. Pt is calm, cooperative, compliant.
[2019-06-14 15:33] VITALS: BP 115/66
[2019-06-14] MEDS: SIMVASTATIN 40 MG TABLET. PO SCH (16:59)
[2019-06-14] MEDS: QUEtiapine 50 MG TABLET. PO SCH (21:58)
[2019-06-14] MEDS: MIRTAZAPINE 7.5 MG TABLET. PO SCH (21:58)
[2019-06-14] MEDS: DONEPEZIL HCL 10 MG TABLET PO SCH (21:58)
--- NOTE | 2019-06-14 22:18 | PDOC ---
Exam Note: Alexandr Note: Please also refer to the separate dictated note~for this date of service dictated separately.~Patient seen individually. Discussed the patient with Nursing staff reviewed the chart.~Reviewed interim history and current functioning. Reviewed vital signs,~Labs/ Radiology~and current medications noted below. Continue current treatment with the changes noted in the dictated addendum note Assessment: Vital Signs/I&O: Vital Signs Date Time Temp Pulse Resp B/P (MAP) Pulse Ox O2 Delivery O2 Flow Rate FiO2 06/14/19 21:59 60 135/74 06/14/19 15:33 97.6 16 97 I & O 06/13/19 06/13/19 06/14/19 15:00 23:00 07:00 Intake Total 1200 ml 480 ml 240 ml Balance 1200 ml 480 ml 240 ml Labs: Laboratory Tests Test 06/14/19 07:43 White Blood Count 7.7 x10^3/uL (4.0-11.0) Red Blood Count 4.19 x10^6/uL (4.30-5.70) L Hemoglobin 11.8 g/dL (13.0-17.5) L Hematocrit 36.2 % (39.0-53.0) L Mean Corpuscular Volume 87 fL (79-100) Mean Corpuscular Hemoglobin 28 pg (25-35) Mean Corpuscular Hemoglobin Concent 33 g/dL (31-37) Red Cell Distribution Width 14.4 % (11.5-14.5) Platelet Count 366 x10^3/uL (140-400) Neutrophils (%) (Auto) 68 % (31-73) Lymphocytes (%) (Auto) 13 % (24-48) L Monocytes (%) (Auto) 7 % (0-9) Eosinophils (%) (Auto) 11 % (0-3) H Basophils (%) (Auto) 1 % (0-3) Neutrophils # (Auto) 5.3 x10^3uL (1.8-7.7) Lymphocytes # (Auto) 1.0 x10^3/uL (1.0-4.8) Monocytes # (Auto) 0.5 x10^3/uL (0.0-1.1) Eosinophils # (Auto) 0.8 x10^3/uL (0.0-0.7) H Basophils # (Auto) 0.1 x10^3/uL (0.0-0.2) Erythrocyte Sedimentation Rate 46 (0-15) H Sodium Level 135 mmol/L (136-145) L Potassium Level 4.3 mmol/L (3.5-5.1) Chloride Level 99 mmol/L (98-107) Carbon Dioxide Level 30 mmol/L (21-32) Anion Gap 6 (6-14) Blood Urea Nitrogen 24 mg/dL (8-26) Creatinine 1.0 mg/dL (0.7-1.3) Estimated GFR (Cockcroft-Gault) 70.5 BUN/Creatinine Ratio 24 (6-20) H Glucose Level 89 mg/dL (70-99) Calcium Level 9.3 mg/dL (8.5-10.1) Total Bilirubin 0.4 mg/dL (0.2-1.0) Aspartate Amino Transferase (AST) 22 U/L (15-37) Alanine Aminotransferase (ALT) 18 U/L (16-63) Alkaline Phosphatase 119 U/L (46-116) H C-Reactive Protein 10.8 mg/L (0-3.3) H Total Protein 7.4 g/dL (6.4-8.2) Albumin 3.5 g/dL (3.4-5.0) Albumin/Globulin Ratio 0.9 (1.0-1.7) L Current Medications: Meds: Current Medications Medications (Trade) Dose Ordered Sig/Selwyn Route PRN Reason Start Time Stop Time Status Last Admin Dose Admin Lisinopril (Prinivil) 10 mg DAILY PO 06/14/19 09:00 06/14/19 09:09 I have reviewed the current psychotropics carefully including drug interactions. Risk benefit ratio favors no change other than as noted in my dictated progress note. Diagnosis: Problems: (1) Major neurocognitive disorder, due to vascular disease, with behavioral disturbance, mild (2) Anxiety disorder (3) Impulse control disorder (4) Dementia, vascular, with depression (5) Dementia, vascular, with delusions (6) Dementia in Alzheimer's disease with depression (7) Dementia in Alzheimer's disease with delusions MARY MADRIGAL MD Jun 14, 2019 22:18
--- NOTE | 2019-06-14 22:55 | NUR ---
Nursing Note: Assumed care of pt. this evening, he was sitting out in the day room. He has been calm, cooperative, and pleasantly confused. He has been compliant with taking his HS meds whole this evening. No behaviors noted at this time.
[2019-06-15 05:27] VITALS: BP 127/58
[2019-06-15] MEDS: LEVOTHYROXINE 50 MCG TABLET PO SCH (06:10)
[2019-06-15] MEDS: DOCUSATE SODIUM 100 MG CAPSULE PO SCH (08:42)
[2019-06-15] MEDS: ASPIRIN ENTERIC COATED 81 MG TABLET.DR. PO SCH (08:42)
[2019-06-15 08:53] VITALS: BP 146/67
[2019-06-15] MEDS: LISINOPRIL 10 MG TABLET PO SCH (08:53)
[2019-06-15] MEDS: METOPROLOL TART IMMED RELEASE 25 MG TABLET PO SCH ×2 (08:53→20:26)
[2019-06-15] MEDS: LIDOCAINE (700MG/PATCH) PATCH. TD SCH (08:54)
[2019-06-15] MEDS: CLOBETASOL EMOLLIENT 0.05% TOPICAL CREAM 15GM TUBE. TP SCH ×2 (08:54→20:28)
[2019-06-15] MEDS: SERTRALINE 50 MG TABLET. PO SCH (08:54)
--- NOTE | 2019-06-15 12:37 | NUR ---
No agitation, no aggression, no hallucinations or delusions. Pt is compliant with cares, medications, and assessment. Pt is calm, cooperative, compliant, and confused.
[2019-06-15 16:08] VITALS: BP 158/75
[2019-06-15] MEDS: SIMVASTATIN 40 MG TABLET. PO SCH (16:24)
[2019-06-15] MEDS: MIRTAZAPINE 7.5 MG TABLET. PO SCH (20:25)
[2019-06-15] MEDS: QUEtiapine 50 MG TABLET. PO SCH (20:26)
[2019-06-15] MEDS: DONEPEZIL HCL 10 MG TABLET PO SCH (20:26)
--- NOTE | 2019-06-15 21:32 | PDOC ---
Exam Note: Alexandr Note: Please also refer to the separate dictated note~for this date of service dictated separately.~Patient seen individually. Discussed the patient with Nursing staff reviewed the chart.~Reviewed interim history and current functioning. Reviewed vital signs,~Labs/ Radiology~and current medications noted below. Continue current treatment with the changes noted in the dictated addendum note Assessment: Vital Signs/I&O: Vital Signs Date Time Temp Pulse Resp B/P (MAP) Pulse Ox O2 Delivery O2 Flow Rate FiO2 06/15/19 20:26 54 158/75 06/15/19 16:08 97.4 18 98 06/15/19 05:27 Room Air I & O 06/14/19 06/14/19 06/15/19 15:00 23:00 07:00 Intake Total 600 ml 240 ml 120 ml Balance 600 ml 240 ml 120 ml Current Medications: I have reviewed the current psychotropics carefully including drug interactions. Risk benefit ratio favors no change other than as noted in my dictated progress note. Diagnosis: Problems: (1) Major neurocognitive disorder, due to vascular disease, with behavioral disturbance, mild (2) Anxiety disorder (3) Impulse control disorder (4) Dementia, vascular, with depression (5) Dementia, vascular, with delusions (6) Dementia in Alzheimer's disease with depression (7) Dementia in Alzheimer's disease with delusions MARY MADRIGAL MD Jun 15, 2019 21:32
--- NOTE | 2019-06-16 00:20 | PN ---
DATE: 06/13/2019 PSYCHIATRIC PROGRESS NOTE This late entry, 06/13, covers elements not covered in my initial note. SUBJECTIVE: I met with the patient evening of 06/13. Per Nohemi RN, patient slept 5 hours previous night, compliant with medications. Blood pressure was elevated, defer to Dr. Potter. He does complain of shoulder and knee pain, received Tylenol. No CV, , pulmonary, eye system symptoms on review. Takes his medications whole. MENTAL STATUS EXAM: Oriented to himself. Insight, judgment, recent and remote memory, attention, concentration, fund of knowledge poor, consistent with his diagnosis mentioned in my initial note. PLAN: No change from initial note. MAN Sulaiman MADRIGAL MD DR: AURE/kimberly JOB#: [id number] / [id number]
[2019-06-16 06:02] VITALS: BP 123/62
[2019-06-16] MEDS: LEVOTHYROXINE 50 MCG TABLET PO SCH (06:09)
[2019-06-16] MEDS: ASPIRIN ENTERIC COATED 81 MG TABLET.DR. PO SCH (07:49)
[2019-06-16] MEDS: DOCUSATE SODIUM 100 MG CAPSULE PO SCH (07:49)
[2019-06-16] MEDS: SERTRALINE 50 MG TABLET. PO SCH (07:50)
[2019-06-16] MEDS: METOPROLOL TART IMMED RELEASE 25 MG TABLET PO SCH ×2 (07:50→19:55)
[2019-06-16] MEDS: LISINOPRIL 10 MG TABLET PO SCH (07:50)
[2019-06-16] MEDS: LIDOCAINE (700MG/PATCH) PATCH. TD SCH (07:52)
[2019-06-16] MEDS: CLOBETASOL EMOLLIENT 0.05% TOPICAL CREAM 15GM TUBE. TP SCH ×2 (07:52→21:00)
--- NOTE | 2019-06-16 09:48 | NUR ---
Pt is compliant with cares, medications, and assessment. Pt is calm, cooperative, compliant, and confused. No agitation, no aggression, no hallucinations or delusions.
--- NOTE | 2019-06-16 12:10 | NUR ---
SW contacted pt to discuss discharge for Sunday of this week. SW informed pt that for respite care, it would be an out of pocket expense and pt did not feel that she could financially afford to pay for that. JONY mentioned that in the event that pt came home, pt would need to have respite care and continued nursing care. SW is concerned that pt is still working on getting physically better. Pt agreed to have HH set up and felt that he did well with that when they had it a few years ago. Pt currently has [facility] and feels like they are doing well with her. SW will check in with pt on Sunday to finalize all discharge plans.
[2019-06-16 16:03] VITALS: BP 144/75
[2019-06-16] MEDS: SIMVASTATIN 40 MG TABLET. PO SCH (17:22)
[2019-06-16] MEDS: ACETAMINOPHEN 325 MG TABLET PO PRN (18:11)
[2019-06-16] MEDS: MIRTAZAPINE 7.5 MG TABLET. PO SCH (19:54)
[2019-06-16] MEDS: QUEtiapine 50 MG TABLET. PO SCH (19:54)
[2019-06-16] MEDS: DONEPEZIL HCL 10 MG TABLET PO SCH (19:55)
--- NOTE | 2019-06-16 21:42 | PDOC ---
Exam Note: Alexandr Note: Please also refer to the separate dictated note~for this date of service dictated separately.~Patient seen individually. Discussed the patient with Nursing staff reviewed the chart.~Reviewed interim history and current functioning. Reviewed vital signs,~Labs/ Radiology~and current medications noted below. Continue current treatment with the changes noted in the dictated addendum note Assessment: Vital Signs/I&O: Vital Signs Date Time Temp Pulse Resp B/P (MAP) Pulse Ox O2 Delivery O2 Flow Rate FiO2 06/16/19 19:55 61 144/75 06/16/19 16:03 98.1 16 96 06/16/19 06:02 Room Air I & O 06/15/19 06/15/19 06/16/19 15:00 23:00 07:00 Intake Total 960 ml 480 ml Balance 960 ml 480 ml Current Medications: I have reviewed the current psychotropics carefully including drug interactions. Risk benefit ratio favors no change other than as noted in my dictated progress note. Diagnosis: Problems: (1) Major neurocognitive disorder, due to vascular disease, with behavioral disturbance, mild (2) Anxiety disorder (3) Impulse control disorder (4) Dementia, vascular, with depression (5) Dementia, vascular, with delusions (6) Dementia in Alzheimer's disease with depression (7) Dementia in Alzheimer's disease with delusions MARY MADRIGAL MD Jun 16, 2019 21:42
--- NOTE | 2019-06-17 00:18 | NUR ---
Nursing Note Pt up in day room watching TV and visiting with peers. Compliant and cooperative with meds and assessment.
--- NOTE | 2019-06-17 00:36 | PN ---
DATE: 06/14/2019 PSYCHIATRIC PROGRESS NOTE This late entry, 06/14/2019, covers elements not covered in my initial note. SUBJECTIVE: I met with the patient in the evening of 06/14/2019. The patient slept 7 hours previous night. Per KENROY Montaño, the patient has been fairly cooperative, but confused. REVIEW OF SYSTEMS: No CV, , pulmonary, eye, ENT system symptoms on review. MENTAL STATUS EXAM: Oriented to himself. Insight, judgment, recent and remote memory, attention, concentration, fund of knowledge poor, consistent with his diagnosis mentioned in my initial note. PLAN: No change from initial note. Social service staff is arranging placement for him. MARY MADRIGAL MD DR: AURE/kimberly JOB#: [id number] / [id number]
--- NOTE | 2019-06-17 00:37 | PN ---
DATE: 06/15/2019 PSYCHIATRIC PROGRESS NOTE This late entry, 06/15, covers elements not covered in my initial note. SUBJECTIVE: I met with the patient evening of 06/15. The patient slept 6-1/2 hours previous night. He has been tearful when reoriented because he recognizes he is getting more forgetful. REVIEW OF SYSTEMS: No CV, , pulmonary, eye, ENT system symptoms on review. 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 Nursing staff will apply a Steri-Strip for this. MENTAL STATUS EXAM: Oriented to himself. Insight, judgment, recent and remote memory, attention, concentration, fund of knowledge poor, consistent with his diagnosis mentioned in my initial note. PLAN: No change from initial note. MAN Sulaiman MADRIGAL MD DR: AURE/kimberly JOB#: [id number] / [id number]
[2019-06-17] MEDS: LEVOTHYROXINE 50 MCG TABLET PO SCH (05:18)
[2019-06-17 05:55] VITALS: BP 170/73
[2019-06-17] MEDS: ASPIRIN ENTERIC COATED 81 MG TABLET.DR. PO SCH (08:42)
[2019-06-17] MEDS: SERTRALINE 50 MG TABLET. PO SCH (08:43)
[2019-06-17] MEDS: LISINOPRIL 10 MG TABLET PO SCH (08:43)
[2019-06-17] MEDS: DOCUSATE SODIUM 100 MG CAPSULE PO SCH (08:43)
[2019-06-17] MEDS: METOPROLOL TART IMMED RELEASE 25 MG TABLET PO SCH ×2 (08:43→20:03)
[2019-06-17] MEDS: LIDOCAINE (700MG/PATCH) PATCH. TD SCH (08:44)
[2019-06-17] MEDS: CLOBETASOL EMOLLIENT 0.05% TOPICAL CREAM 15GM TUBE. TP SCH ×2 (08:44→20:04)
[2019-06-17] MEDS ORDERED: FLU VAX QS 2019-20 (36MOS+)/PF 0.5 ML SYRINGE. VAX IM ONE (09:00)
--- NOTE | 2019-06-17 11:29 | NUR ---
Pt has been calm and compliant with medications. Pleasantly confused. Flu vaccine administered in left deltoid.
--- NOTE | 2019-06-17 11:51 | NUR ---
Pt came into SW office and had a random conversation re: people on the unit and how he just can't handle them sometimes. SW and pt discussed having pt discharge back home to his on Sunday. Pt was very thankful and felt that it would be great to get away from "such rude people".
--- NOTE | 2019-06-17 14:42 | NUR ---
[facility] Social Work Discharge Planning Form Patient Name YARA JOHANSEN Admit Date: 05/26/19 DISCHARGE PLAN Discharge Destination: Pt to discharge home with and services Care Assessment: N/A Level II Assessment: N/A Transportation: Pt son to pick pt up; Time unknown but will plan to tell him after 10:00 Special Instructions/Notes: Please fax discharge orders, medication list and discharge summary to the providers listed below. DISCHARGE TO HOME: Address: [address] [place] [address]; [place] [address] Responsible [employer]: Pt is [place] Pharmacy: [facility] Contact Information: [address], [place] [address] Primary Care Follow Up: Dr. Nascimento Contact Information: [address] [place] [phone] Appointment: See amended note below Home Health: [facility] Contact Information: [address]; [facility] [phone] Appointment: Will be at the home within 48 hours of discharge.
[2019-06-17 16:37] VITALS: BP 134/50
[2019-06-17] MEDS: SIMVASTATIN 40 MG TABLET. PO SCH (16:50)
[2019-06-17] MEDS: QUEtiapine 50 MG TABLET. PO SCH (20:04)
[2019-06-17] MEDS: DONEPEZIL HCL 10 MG TABLET PO SCH (20:04)
[2019-06-17] MEDS: MIRTAZAPINE 7.5 MG TABLET. PO SCH (20:04)
--- NOTE | 2019-06-17 22:15 | PDOC ---
Exam Note: Alexandr Note: Please also refer to the separate dictated note~for this date of service dictated separately.~Patient seen individually. Discussed the patient with Nursing staff reviewed the chart.~Reviewed interim history and current functioning. Reviewed vital signs,~Labs/ Radiology~and current medications noted below. Continue current treatment with the changes noted in the dictated addendum note Assessment: Vital Signs/I&O: Vital Signs Date Time Temp Pulse Resp B/P (MAP) Pulse Ox O2 Delivery O2 Flow Rate FiO2 06/17/19 20:03 65 134/50 06/17/19 16:37 97.6 18 96 06/16/19 06:02 Room Air I & O 06/16/19 06/16/19 06/17/19 14:59 22:59 06:59 Intake Total 360 ml 120 ml Balance 360 ml 120 ml Current Medications: Meds: Current Medications Medications (Trade) Dose Ordered Sig/Selwyn Route PRN Reason Start Time Stop Time Status Last Admin Dose Admin Influenza Virus Vaccine Quadrival (Afluria Quad 2018- (3yr Up) Syringe) 0.5 ml ONCE ONCE VAX IM 06/17/19 09:00 06/17/19 09:01 DC 06/17/19 10:24 I have reviewed the current psychotropics carefully including drug interactions. Risk benefit ratio favors no change other than as noted in my dictated progress note. 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
[2019-06-18] MEDS ORDERED: DONE10TA7 PO (00:17)
[2019-06-18] MEDS ORDERED: SIMV40TA18 PO (00:19)
[2019-06-18] MEDS ORDERED: LISI10TA2 PO (00:20)
[2019-06-18] MEDS ORDERED: LIDO700A21 TP (00:37)
[2019-06-18] MEDS ORDERED: SERT50TA PO (00:53)
[2019-06-18] MEDS ORDERED: MIRT15TA PO (00:54)
[2019-06-18] MEDS ORDERED: OLAN5TAB5 PO (00:55)
[2019-06-18] MEDS ORDERED: ACET325T9 PO (00:58)
[2019-06-18] MEDS ORDERED: DOCU-109 PO (01:06)
[2019-06-18] MEDS ORDERED: MAGN2400 PO (01:09)
[2019-06-18] MEDS ORDERED: METH57CR17 TP (01:11)
--- NOTE | 2019-06-18 04:50 | NUR ---
Nursing Note Pt calm and cooperative, denies pain or complaints pleasant on approach.
[2019-06-18] MEDS: LEVOTHYROXINE 50 MCG TABLET PO SCH (05:17)
[2019-06-18 05:54] VITALS: BP 157/66
--- NOTE | 2019-06-18 06:26 | PN ---
DATE: 06/16/2019 This late entry 06/16/2019 covers elements not covered in my initial note. SUBJECTIVE: I met with the patient evening of 06/16/2019. The patient slept 7-1/4 hours previous night per KENROY Mcdonough. He has done well previous night and during the day, 06/16/2019. He remains confused, but appropriate, redirectable. REVIEW OF SYSTEMS: No CV, , pulmonary, eye, ENT system symptoms on review. Reliability poor. MENTAL STATUS EXAM: Oriented to himself. Insight, judgment, recent and remote memory, attention, concentration, fund of knowledge poor, consistent with his diagnosis mentioned in my initial note. PLAN: No change from initial note. MAN Sulaiman MADRGIAL MD DR: AURE/kimberly JOB#: [id number] / [id number]
[2019-06-18 07:43] VITALS: BP 157/66
[2019-06-18] MEDS: SERTRALINE 50 MG TABLET. PO SCH (07:43)
[2019-06-18] MEDS: DOCUSATE SODIUM 100 MG CAPSULE PO SCH (07:43)
[2019-06-18] MEDS: METOPROLOL TART IMMED RELEASE 25 MG TABLET PO SCH (07:43)
[2019-06-18] MEDS: LISINOPRIL 10 MG TABLET PO SCH (07:43)
[2019-06-18] MEDS: LIDOCAINE (700MG/PATCH) PATCH. TD SCH (07:44)
[2019-06-18] MEDS: CLOBETASOL EMOLLIENT 0.05% TOPICAL CREAM 15GM TUBE. TP SCH (07:44)
[2019-06-18] MEDS: ASPIRIN ENTERIC COATED 81 MG TABLET.DR. PO SCH (07:44)
--- NOTE | 2019-06-18 08:28 | NUR ---
Patient was eating breakfast during morning rounding, took medications, allowed for morning assessment. No delusions, pt denies pain. No agitation noted, pt is scheduled to leave today. Will continue to monitor.
--- NOTE | 2019-06-18 12:22 | NUR ---
Transition Record was faxed to follow-up provider with the following elements: Reason for admission, procedures, tests, principal diagnosis, pending studies, patient instructions, 09/04 contact information for unit, phone number to obtain pending test results, plan for follow-up care, physician follow-up, advanced directive information, and medication list with dose, duration and instructions. This information was included in the following documents: History and physical, lab results, study results, progress notes, social work planning form, DC instruction form, patient visit summary, and medication reconciliation form. Date & time record faxed: 06/18/2019 @0504. Record faxed to: Dr. Nascimento's office, pharmacy Record discussed with/ report given to: Chuy
--- NOTE | 2019-06-18 21:22 | PDOC ---
Exam Note: Alexandr Note: Please also refer to the separate dictated note~for this date of service dictated separately.~Patient seen individually. Discussed the patient with Nursing staff reviewed the chart.~Reviewed interim history and current functioning. Reviewed vital signs,~Labs/ Radiology~and current medications noted below. Continue current treatment with the changes noted in the dictated addendum note Assessment: Vital Signs/I&O: Vital Signs Date Time Temp Pulse Resp B/P (MAP) Pulse Ox O2 Delivery O2 Flow Rate FiO2 06/18/19 07:43 59 157/66 06/18/19 05:54 98.1 16 95 06/16/19 06:02 Room Air I & O 06/17/19 06/17/19 06/18/19 14:59 22:59 06:59 Intake Total 720 ml 240 ml 120 ml Balance 720 ml 240 ml 120 ml Current Medications: I have reviewed the current psychotropics carefully including drug interactions. Risk benefit ratio favors no change other than as noted in my dictated progress note. Diagnosis: Problems: (1) Major neurocognitive disorder, due to vascular disease, with behavioral disturbance, mild (2) Anxiety disorder (3) Impulse control disorder (4) Dementia, vascular, with depression (5) Dementia, vascular, with delusions (6) Dementia in Alzheimer's disease with depression (7) Dementia in Alzheimer's disease with delusions MARY MADRIGAL MD Jun 18, 2019 21:22
--- NOTE | 2019-06-18 22:15 | DS ---
DATE OF DISCHARGE: 06/18/2019 PSYCHIATRIC PROGRESS NOTE This note covers elements not covered in my initial note 06/18/2019. REASON FOR ADMISSION: Please refer to the admission history for details. Briefly, the patient is an 89-year-old male referred to us from [address] [place] [address], Dr. Potter after he was medically stabilized after he presented from home consequent to increased agitation, aggression towards his . His had fallen and had a fractured hip, though she minimized his responsibility for this. Other information from nursing staff and ancillary services were suggestive of this. He was wandering out of the home, paranoid, suspicious, agitated, and had failed outpatient psychiatric interventions. SIGNIFICANT FINDINGS AND CLINICAL COURSE: Following admission, the patient was seen daily individually by myself from a psychiatric standpoint, Medical follow up with Dr. Potter. He remained confused, anxious, agitated, restless, obsessive. Adjustments were made in his psychotropics. He seemed to respond to a combination of Zoloft 75 mg a day, Seroquel 50 mg at bedtime, Remeron 7.5 mg at bedtime, Aricept 10 mg a day, Ativan and hydroxyzine p.r.n., and Zyprexa p.r.n. REVIEW OF SYSTEMS: Prior to discharge on 06/18/2019, no CV, , pulmonary, eye, ENT system symptoms on review. Reliability poor. MENTAL STATUS EXAM: Oriented to himself. Insight, judgment, recent, and remote memory, attention, concentration, fund of knowledge poor, consistent with his diagnosis. CONDITION AT DISCHARGE: Improved. FINAL DIAGNOSES: Major neurocognitive disorder; Alzheimer, vascular with delusion; depression; behavioral disturbance; anxiety disorder, unspecified; impulse control disorder, unspecified. Rest unchanged from admission. DISCHARGE MEDICATIONS: Please refer to the [facility]. DISCHARGE INSTRUCTIONS: Outpatient psychiatric and medical followup at the [facility]. Time for discharge day management greater than 30 minutes. MARY MADRIGAL MD DR: AURE/kimberly JOB#: [id number] / [id number]
--- NOTE | 2019-06-19 06:29 | PN ---
DATE: 06/17/2019 PSYCHIATRIC PROGRESS NOTE This late entry, 06/17, covers elements not covered in my initial note. SUBJECTIVE: I met with the patient in the evening. The patient slept 6 hours per nursing report by KENROY Mcdonough. He has done well at night and during the day. He remains confused, redirectable, little anxious, but very pleasant, smiling and verbally interactive with me as I met with him evening of 06/17. REVIEW OF SYSTEMS: No CV, , pulmonary, eye, ENT system symptoms on review. Reliability poor. MENTAL STATUS EXAM: Oriented to himself. Insight, judgment, recent and remote memory, attention, concentration, fund of knowledge poor, consistent with his diagnosis mentioned in my initial note. PLAN: No change from initial note. MAN Sulaiman MADRIGAL MD DR: AURE/kimberly JOB#: [id number] / [id number]
== END 2019-06-18 12:26 | disposition home health service (06) | DRG 57 ==
LOC: GEROPSY 22:12
PROVIDERS: ADMIT Psychiatry & Neurology Psychiatry; ATTEND Psychiatry & Neurology Psychiatry
DX: G30.9 Alzheimer's disease, unspecified (principal); F01.51 Vascular dementia, unspecified severity, with behavioral disturbance; F02.81 Dementia in other diseases classified elsewhere, unspecified severity, with behavioral disturbance; I11.0 Hypertensive heart disease with heart failure; F32.9 Major depressive disorder, single episode, unspecified; F41.9 Anxiety disorder, unspecified; F63.9 Impulse disorder, unspecified; I50.9 Heart failure, unspecified; R07.9 Chest pain, unspecified; Z66 Do not resuscitate; F17.200 Nicotine dependence, unspecified, uncomplicated; E86.0 Dehydration; Z85.46 Personal history of malignant neoplasm of prostate; Z92.21 Personal history of antineoplastic chemotherapy; R62.7 Adult failure to thrive; E03.9 Hypothyroidism, unspecified; E78.5 Hyperlipidemia, unspecified; J44.9 Chronic obstructive pulmonary disease, unspecified; Z79.899 Other long term (current) drug therapy; M19.90 Unspecified osteoarthritis, unspecified site; Z88.2 Allergy status to sulfonamides; Z88.8 Allergy status to other drugs, medicaments and biological substances
CPT/HCPCS: 36415; 80053; 80061; 82306; 83036; 83540; 83550; 83735; 84436; 84443; 84480; 85025; 85651; 86140; 86592; 90471; 90686; 97110; 97116; 97530; 97535